=== PATIENT | male | born 1935 | race Caucasian/White ===

== ENCOUNTER → 2016-11-18 | Outpatient (REF) | payer MEDICARE, OTHER ==
[~2016-11-18] MED LIST: ACET65TA; ALBU17IN INH; ALEVE; ANOR1AER INH; BREO1INH3 INH; CALCTAB68 PO; CEFA1INJ5 IV; CHLO50TA PO; DICL500C PO; DILT120C PO; DILT30TA PO; DIOV160T5; ELIQ5TAB PO; FINA5TAB2 PO; FISHCAP; FLOM5CAP PO; IPRASOL4 INH; LEFL1TAB4 PO; LEVO2TA; LISI-542 PO; MORP15TASA PO; OXYC1TAB23 PO; PRESCAP6 PO; TIZA4CAP3 PO
[2016-11-18 14:03] LABS: MEAN CORPUSCULAR HGB CONC 31.7 g/dl (32.0-36.5); MEAN CORPUSCULAR VOLUME 91.4 fl (80.0-96.0); RED CELL DISTRIBUTION WIDTH 15.8 % (11.5-14.5); WHITE BLOOD COUNT 10.2 K/mm3 (4.0-10.0)
[2016-11-18 14:40] LABS: ANION GAP 10 MEQ/L (8-16); BLOOD UREA NITROGEN 9 MG/DL (7-18); CALCIUM LEVEL 8.6 MG/DL (8.8-10.2); CARBON DIOXIDE LEVEL 27 MEQ/L (21-32); CHLORIDE LEVEL 102 MEQ/L (98-107); GLOMERULAR FILTRATION RATE > 60.0 (>35); GLUCOSE, FASTING 84 MG/DL (83-110); POTASSIUM SERUM 4.4 MEQ/L (3.5-5.1); SODIUM LEVEL 139 MEQ/L (136-145)
== END ==
LOC: M SHH 13:04
PROVIDERS: ATTEND Internal Medicine Infectious Disease
DX: Z79.02 Long term (current) use of antithrombotics/antiplatelets (principal)

== ENCOUNTER 2016-11-25 12:55 | Emergency (ER) | payer MEDICARE, OTHER ==
[2016-11-25 14:00] LABS: BASO % 0.5 % (0.0-1.0); EOS # 0.1 K/mm3 (0.0-0.50); EOS % 1.6 % (0.0-3.0); LARGE UNSTAINED CELL # 0.1 K/mm3 (0.0-0.4); LARGE UNSTAINED CELL % 1.4 % (0.0-4.0); LYMPH # 0.9 K/mm3 (1.5-4.5); MEAN CORPUSCULAR HEMOGLOBIN 29.6 pg (27.0-33.0); MEAN CORPUSCULAR VOLUME 92.5 fl (80.0-96.0); MONO # 0.8 K/mm3 (0.0-0.8); MONO % 8.8 % (0.0-5.0); NEUTROPHILS # 7.1 K/mm3 (1.8-7.7); NEUTROPHILS % 77.7 % (36.0-66.0); PLATELET COUNT, AUTOMATED 343 k/mm3 (150-450); RED CELL DISTRIBUTION WIDTH 15.2 % (11.5-14.5); WHITE BLOOD COUNT 9.2 K/mm3 (4.0-10.0)
[2016-11-25 14:09] LABS: INR 1.86
[2016-11-25] MEDS ORDERED: PERCOCET 5MG/325MG TAB As Ordered ONE (14:20)
[2016-11-25 14:27] LABS: ALBUMIN 2.7 GM/DL (3.2-5.2); ALBUMIN/GLOBULIN RATIO 0.71 (1.00-1.93); ALKALINE PHOSPHATASE 116 U/L (45-117); ALT/SGPT < 6 U/L (12-78); AMYLASE 16 U/L (25-115); ANION GAP 10 MEQ/L (8-16); AST/SGOT 12 U/L (15-37); BILIRUBIN,DIRECT 0.2 MG/DL (0.0-0.2); BILIRUBIN,TOTAL 0.4 MG/DL (0.2-1.0); BLOOD UREA NITROGEN 14 MG/DL (7-18); CALCIUM LEVEL 9.2 MG/DL (8.8-10.2); CARBON DIOXIDE LEVEL 28 MEQ/L (21-32); CHLORIDE LEVEL 107 MEQ/L (98-107); CREATININE FOR GFR 0.73 MG/DL (0.70-1.30); GLOMERULAR FILTRATION RATE > 60.0 (>35); GLUCOSE, FASTING 100 MG/DL (83-110); POTASSIUM SERUM 4.1 MEQ/L (3.5-5.1); SODIUM LEVEL 145 MEQ/L (136-145); TOTAL PROTEIN 6.5 GM/DL (6.4-8.2)
[2016-11-25] MEDS ORDERED: ISOVUE-370 76% 100ML VIAL (Q9967) As Ordered ONE (14:37)
[2016-11-25 14:58] LABS: ERYTHROCYTE SEDIMENTATION RATE 76 mm/hr (0-20)
--- NOTE | 2016-11-25 17:19 | REP ---
CT study of the abdomen pelvis with IV but without oral contrast: History: Psoas abscess, acute bacterial diskitis in the lumbar spine at L1-2 and L3-4. The patient is status-post catheter drainage right iliopsoas abscess. Increased pain. Comparison CT study is of the lumbar spine from 11/03/2016. Comparison is also made with 10/14/[address] contrast dose: 100 mL of Isovue [address] findings: There is some progressive bone destruction and superior collapse of the L2 vertebral body. There is endplate destruction at the at the inferior endplate of L1. These changes are somewhat more pronounced as well although L1 has not lost in the vertebral body heights. Centrally, the L2 vertebral body has lost approximately 50%. There is destruction of the posterior cortex of the L2 vertebral body as well and there is evidence of epidural disease with retropulsion or epidural abscess formation and central canal spinal stenosis at L1-2. This appears to be more pronounced than on the 11/03/2016 study. There is no visible paraspinal fluid or psoas fluid collection. The right iliopsoas percutaneous drainage catheter remains in place without a discernible cavity in the psoas. The changes at L3-4 are essentially status quo. Left colonic diverticulosis without evidence of diverticulitis is again seen. Small bilateral pleural effusions are seen along with calcific pleural plaquing. No intra-abdominal abscess seen. Impression: Progressive bone destruction and loss of vertebral body height at L2 with retropulsion. There is ventral and right ventral epidural inflammatory disease at L1-2, question epidural abscess, which is more pronounced than on the 11/03/2016 CT study. The right pigtail drainage catheter remains in place. No observable soft-tissue abscess on either side. Signed by Manav Vargas MD 11/26/2016 08:00 A
--- NOTE | 2016-11-25 19:19 | EDDOCDS ---
Nurse's Notes [facility] Name: Yamil Harvey Age: 81 yrs Sex: Male : 1935 Arrival Date: 11/25/2016 Time: 12:55 Bed 17 Private MD: Jagdish Bobby J Diagnosis: Osteomyelitis-L2 with epidural abscess Presentation: 11/25 12:58 Presenting complaint: EMS states: sent over d/t blood in the tubes from his psoas po abscess. Acute neurological deficits are not present. Mechanism of Injury: No Mechanism of Injury. Suicide/Homicide risk assessment- the patient denies having any suicidal and/or homicidal ideations and does not present with any other emotional, behavioral or mental health complaints. 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 Transition of care: patient was received from a primary care office; Dr. Bobby. 12:58 Acuity: JARED Level 3 po 12:58 Method Of Arrival: Ambulance po 13:07 Adult Sepsis Screening: The patient does not have new or worsening altered mentation. po Patient's respiratory rate is less than 22. Systolic blood pressure is greater than 100. Patient has a qSOFA score of 0- Negative Sepsis Screen. 13:13 Presenting complaint: Patient states: Had Toradol 60mg IM at 's office without po relief of pain. Triage Assessment: 13:07 General: Appears uncomfortable, Behavior is appropriate for age, cooperative. Pain: po Location: back, right leg and left leg Pain currently is 10 out of 10 on a pain scale. Quality of pain is described as sharp, Is continuous. Neurological: Level of Consciousness is awake, alert, Oriented to person, place, time. Musculoskeletal: Reports weakness in right leg and left leg. Historical: - Allergies: No known drug Allergies; - Home Meds: 1. ProAir HFA 90 mcg/actuation inhalation HFAA 1 puff every 4 hours as needed 2. Eliquis 5 mg oral tab 1 tab 2 times per day 3. bisacodyl 10 mg Rectal supp 1 suppository as needed for Constipation 4. Calcium + Vitamin D 500/1000/40 Oral 1 tab daily 5. diltiazem HCl 120 mg Oral cpER 1 cap once daily 6. Flomax 0.4 mg Oral cp24 1 cap once daily 7. lisinopril 5 mg oral tab 1 tab once daily 8. Anoro Ellipta 62.5-25 mcg/actuation inhalation dsdv 1 puff once daily 9. Areds 2-Eye vitamin 2 tab daily 10. Proscar 5 mg Oral tab 1 tab once daily 11. morphine 15 mg Oral TbER 1 tab every 12 hours 12. Percocet 5-325 mg Oral tab 1 tab every 6 hours as needed 13. leflunomide 20 mg oral tab 1 tab once daily 14. finasteride 5 mg oral tab 1 tab once daily 15. Breo Ellipta 100-25 mcg/dose inhalation dsdv 1 puff once daily 16. cefazolin 2 grams injection solr every 8 hours - PMHx: COPD; Cancer, Lung - Right; Hypertension; Macular Degeneration; BPH; Lumbar Discitis; Psoas Abscess; - PSHx: Wedge resection RLL; - Social history: Smoking status: Patient states former smoker of tobacco. No barriers to communication noted, The patient speaks fluent Yakut. - Family history: Not pertinent. - : The pt / caregiver states he / she is on anticoagulants: [employer] Home medication list is obtained from the patient, family members, [employer] import data. - Exposure Risk Screening:: None identified. Screenin:10 Screening information is obtained from the patient. Fall risk: At risk due to gait po disturbance, The following interventions are performed due to a positive Fall Risk Screen: Fall Risk is added to Special Handling on the patient Summary Screen. A Fall Risk Bracelet was applied to the patient. Side Rails are placed in the up position. A Call [place] is given with instruction to call for help when getting out of bed. Fall Alert bracelet is placed on the patient. Assistance ADL's: Requires assistance with meal preparation, this assistance is provided by family members, bathing, assistance is provided by family members, dressing, assistance is provided by family members, housework, assistance is provided by family members, medication administration, assistance is provided by family members. Abuse/DV Screen: The patient / caregiver reports he/she is: not in a situation that causes fear, pain or injury. Nutritional screening: Had unintentional weight loss of 10 pounds or more. Advance Directives: Currently, there is no health care proxy. There is no active DNR order. There is no living will. Further advance directive information is declined. home support is adequate. 13:13 Fall Risk. po Assessment: 14:00 General: Appears in no apparent distress, comfortable, Behavior is appropriate for age, ck1 cooperative. Pain: Location: left hip and right hip and back. Neurological: Level of Consciousness is awake, alert, obeys commands, Oriented to person, place, time. Cardiovascular: Rhythm is irregular. Respiratory: Respiratory effort is unlabored, Respiratory pattern is regular, symmetrical. Derm: Skin is pink, warm & dry. Musculoskeletal: Circulation, motion, and sensation intact Range of motion intact in all extremities. 15:09 Reassessment: Patient appears in no apparent distress at this time. ck1 15:50 General: Appears in no apparent distress, comfortable, Behavior is appropriate for age, ck1 cooperative. Neurological: Level of Consciousness is awake, alert, obeys commands, Oriented to person, place, time. Cardiovascular: Rhythm is irregular. Respiratory: Respiratory effort is unlabored, Respiratory pattern is regular, symmetrical. Derm: Skin is pink, warm & dry. Musculoskeletal: Circulation, motion, and sensation intact Range of motion intact in all extremities. 16:16 Adult Sepsis Screening: The patient does not have new or worsening altered mentation. ck1 Patient's respiratory rate is less than 22. Systolic blood pressure is greater than 100. Patient has a qSOFA score of 0- Negative Sepsis Screen. 16:39 General: Appears in no apparent distress, comfortable, Behavior is appropriate for age, ck1 cooperative. Neurological: Level of Consciousness is awake, alert, obeys commands, Oriented to person, place, time. Cardiovascular: Rhythm is irregular. Respiratory: Respiratory effort is unlabored, Respiratory pattern is regular, symmetrical. GI: No deficits noted. Derm: Skin is pink, warm & dry. Musculoskeletal: Circulation, motion, and sensation intact Range of motion intact in all extremities. 17:40 Reassessment: Patient appears in no apparent distress at this time. ck1 18:45 General: Appears in no apparent distress, comfortable, Behavior is appropriate for age, ck1 cooperative. Neurological: Level of Consciousness is awake, alert, obeys commands, Oriented to person, place, time. Cardiovascular: Rhythm is irregular Chest pain is denied. Respiratory: Respiratory effort is unlabored, Respiratory pattern is regular, symmetrical. GI: No deficits noted. Derm: Skin is pink, warm & dry. Musculoskeletal: Circulation, motion, and sensation intact Range of motion intact in all extremities. 19:04 General: Verbal report given by Kyra Toribio RN. Assumed care of patient at this time.. kas2 Vital Signs: 13:11 BP 137 / 68; Pulse 76; Resp 20; Temp 98.0(O); Pulse Ox 96% on R/A; Weight 84.82 kg (R); jrd Height 5 ft. 11 in. (180.34 cm); Pain 9/10; 15:07 BP 119 / 81 (auto/); ck1 15:08 Pulse 84 MON; Pulse Ox 95% ; ck1 15:22 BP 129 / 75 (auto/); ck1 15:23 Pulse 82 MON; Pulse Ox 95% ; ck1 15:37 BP 135 / 80 (auto/); ck1 15:38 Pulse 82 MON; Pulse Ox 92% ; ck1 15:52 BP 127 / 93 (auto/); ck1 15:52 Pulse 82 MON; Pulse Ox 93% ; ck1 16:05 Pulse 84 MON; Pulse Ox 95% ; ck1 16:07 BP 143 / 68 (auto/); ck1 16:22 BP 122 / 67 (auto/); ck1 16:23 Pulse 82 MON; Pulse Ox 96% ; ck1 16:37 BP 162 / 79 (auto/); ck1 16:38 Pulse 82 MON; Pulse Ox 94% ; ck1 16:52 BP 155 / 90 (auto/); ck1 16:53 Pulse 80 MON; Pulse Ox 94% ; ck1 17:07 BP 159 / 84 (auto/); ck1 17:08 Pulse 84 MON; Pulse Ox 94% ; ck1 17:37 BP 135 / 89 (auto/); ck1 17:38 Pulse 82 MON; Pulse Ox 94% ; ck1 17:52 BP 150 / 66 (auto/); ck1 17:53 Pulse 80 MON; Pulse Ox 93% ; ck1 18:07 BP 160 / 70 (auto/); ck1 18:08 Pulse 80 MON; Pulse Ox 95% ; ck1 18:11 Pulse 76 MON; Pulse Ox 94% ; ck1 18:22 BP 162 / 87 (auto/); ck1 18:23 Pulse 82 MON; ck1 18:37 BP 144 / 73 (auto/); ck1 18:38 Pulse 76 MON; ck1 18:52 BP 142 / 80 (auto/); kas2 18:52 Pulse 86 MON; kas2 18:52 BP 138 / 72; Pulse 82; Resp 18; Pulse Ox 95% ; Pain 0/10; kas2 19:07 BP 128 / 73 (auto/); kas2 19:07 Pulse 82 MON; kas2 19:13 Temp 96.9(O); ls3 19:15 Temp 98.0(O); kas2 13:11 Body Mass Index 26.08 (84.82 kg, 180.34 cm) jrd Vitals: 13:07 Log In Time N/A - ambulance arrival. po ED Course: 12:56 Patient visited by Winifred Coronel, Health Science Specialist. lbd 12:56 Jagdish Bobby is Private Physician. lbd 12:56 Patient moved to Waiting lbd 12:57 Kyra Ramos,RN is Primary Nurse. lbd 12:57 Patient moved to 17 lbd 13:00 Nicolette Keller MD is Attending Physician. sd1 13:02 Triage Initiated po 13:07 Arm band placed on right wrist. Patient placed in exam room. Family accompanied patient.po 13:10 The patient / caregiver is instructed regarding the plan of care and ED course. Placed po in gown. Bed in low position. Call light in reach. Side rails up X2. case monitor on. Pulse ox on. NIBP on. 13:12 Patient visited by Jerome Arzola PCA. jrd 13:14 Patient visited by Yan Jamison,SHAY. po 13:20 Patient visited by Nicolette Keller MD. sd1 13:29 Accessed PICC line in patient's right upper arm. Clean & dry. po 13:47 Patient visited by Kyra Ramos,SHAY. ck1 13:47 BLOOD CULTURES Sent. ck1 13:47 Sed Rate Sent. ck1 13:47 CRP Sent. ck1 13:47 Lactic Acid (Rao tube on ice) Sent. ck1 13:47 Amylase Sent. ck1 13:47 Basic Metabolic Profile Sent. ck1 13:47 CBC with Diff Sent. ck1 13:47 Lipase Sent. ck1 13:47 Prothrombin Time Profile\E\INR Sent. ck1 13:47 Liver Profile Sent. ck1 14:16 Patient visited by Kyra Ramos,SHAY. ck1 14:49 Patient visited by Kyra Ramos RN. ck1 15:06 [facility] Payment Agreement was scanned into [employer] and attached to record. pm4 15:08 Patient visited by Kyra Ramos RN. ck1 15:10 No procedures done that require assistance. ck1 15:41 Patient visited by Kyra Ramos,SHAY. ck1 16:16 Patient visited by Kyra Ramos RN. ck1 16:40 Patient visited by Kyra Ramos RN. ck1 18:18 CT ABD & PELVIS: IV Contrast Only Returned. EDMS 18:50 Primary Nurse role handed off by Kyra Ramos RN ck1 19:01 Farida Stanford RN is Primary Nurse. kas2 19:04 Patient visited by Farida Stanford RN. kas2 19:16 Patient visited by Farida Stanford RN. kas2 Administered Medications: 14:29 Drug: oxyCODONE-acetaminophen 1 tabs [oxycodone-acetaminophen 5 mg-325 mg tablet (1 kc3 tabs)] Route: PO; 16:39 Drug: NS 0.9% 1000 ml [sodium chloride 0.9 % intravenous solution] Route: IV; Rate: 100 ck1 mL/hr; Site: right upper arm; Order Results: Lab Order: Amylase; SPEC'M 11/25/16 13:45 Test: AMYLASE; Value: 16; Range: 25-115; Abnormal: Below low normal; Units: U/L; Status: F Lab Order: Basic Metabolic Profile; SPEC'M 11/25/16 13:45 Test: GLUCOSE, FASTING; Value: 100; Range: 83-110; Units: MG/DL; Status: F Test: BLOOD UREA NITROGEN; Value: 14; Range: 7-18; Units: MG/DL; Status: F Test: CREATININE FOR GFR; Value: 0.73; Range: 0.70-1.30; Units: MG/DL; Status: F Test: GLOMERULAR FILTRATION RATE; Value: > 60.0; Range: >35; Status: F Test: SODIUM LEVEL; Value: 145; Range: 136-145; Units: MEQ/L; Status: F Test: POTASSIUM SERUM; Value: 4.1; Range: 3.5-5.1; Units: MEQ/L; Status: F Test: CHLORIDE LEVEL; Value: 107; Range: 98-107; Units: MEQ/L; Status: F Test: CARBON DIOXIDE LEVEL; Value: 28; Range: 21-32; Units: MEQ/L; Status: F Test: ANION GAP; Value: 10; Range: 8-16; Units: MEQ/L; Status: F Test: CALCIUM LEVEL; Value: 9.2; Range: 8.8-10.2; Units: MG/DL; Status: F Test Note: ; Units are mL/min/1.73 m2 Chronic Kidney Disease Staging per NKF: Stage I & II GFR >=60 Normal to Mildly Decreased Stage III GFR 30-59 Moderately Decreased Stage IV GFR 15-29 Severely Decreased Stage V GFR <15 Very Little GFR Left ESRD GFR <15 on RUBBER TILE FLOOR LAYER Lab Order: CBC with Diff; SPEC'M 11/25/16 13:45 Test: WHITE BLOOD COUNT; Value: 9.2; Range: 4.0-10.0; Units: K/mm3; Status: F Test: RED BLOOD COUNT; Value: 4.09; Range: 4.30-6.10; Abnormal: Below low normal; Units: M/mm3; Status: F Test: HEMOGLOBIN; Value: 12.1; Range: 14.0-18.0; Abnormal: Below low normal; Units: g/dl; Status: F Test: HEMATOCRIT; Value: 37.8; Range: 42.0-52.0; Abnormal: Below low normal; Units: %; Status: F Test: MEAN CORPUSCULAR VOLUME; Value: 92.5; Range: 80.0-96.0; Units: fl; Status: F Test: MEAN CORPUSCULAR HEMOGLOBIN; Value: 29.6; Range: 27.0-33.0; Units: pg; Status: F Test: MEAN CORPUSCULAR HGB CONC; Value: 32.0; Range: 32.0-36.5; Units: g/dl; Status: F Test: RED CELL DISTRIBUTION WIDTH; Value: 15.2; Range: 11.5-14.5; Abnormal: Above high normal; Units: %; Status: F Test: PLATELET COUNT, AUTOMATED; Value: 343; Range: 150-450; Units: k/mm3; Status: F Test: NEUTROPHILS %; Value: 77.7; Range: 36.0-66.0; Abnormal: Above high normal; Units: %; Status: F Test: LYMPH %; Value: 10.0; Range: 24.0-44.0; Abnormal: Below low normal; Units: %; Status: F Test: MONO %; Value: 8.8; Range: 0.0-5.0; Abnormal: Above high normal; Units: %; Status: F Test: EOS %; Value: 1.6; Range: 0.0-3.0; Units: %; Status: F Test: BASO %; Value: 0.5; Range: 0.0-1.0; Units: %; Status: F Test: LARGE UNSTAINED CELL %; Value: 1.4; Range: 0.0-4.0; Units: %; Status: F Test: NEUTROPHILS #; Value: 7.1; Range: 1.8-7.7; Units: K/mm3; Status: F Test: LYMPH #; Value: 0.9; Range: 1.5-4.5; Abnormal: Below low normal; Units: K/mm3; Status: F Test: MONO #; Value: 0.8; Range: 0.0-0.8; Units: K/mm3; Status: F Test: EOS #; Value: 0.1; Range: 0.0-0.50; Units: K/mm3; Status: F Test: BASO #; Value: 0.0; Range: 0.0-0.2; Units: K/mm3; Status: F Test: LARGE UNSTAINED CELL #; Value: 0.1; Range: 0.0-0.4; Units: K/mm3; Status: F Lab Order: Lipase; SPEC'M 11/25/16 13:45 Test: LIPASE; Value: 109; Range: 73-393; Units: U/L; Status: F Lab Order: Liver Profile; SPEC'M 11/25/16 13:45 Test: AST/SGOT; Value: 12; Range: 15-37; Abnormal: Below low normal; Units: U/L; Status: F Test: ALT/SGPT; Value: < 6; Range: 12-78; Abnormal: Below low normal; Units: U/L; Status: F Test: ALKALINE PHOSPHATASE; Value: 116; Range: 45-117; Units: U/L; Status: F Test: BILIRUBIN,TOTAL; Value: 0.4; Range: 0.2-1.0; Units: MG/DL; Status: F Test: BILIRUBIN,DIRECT; Value: 0.2; Range: 0.0-0.2; Units: MG/DL; Status: F Test: TOTAL PROTEIN; Value: 6.5; Range: 6.4-8.2; Units: GM/DL; Status: F Test: ALBUMIN; Value: 2.7; Range: 3.2-5.2; Abnormal: Below low normal; Units: GM/DL; Status: F Test: ALBUMIN/GLOBULIN RATIO; Value: 0.71; Range: 1.00-1.93; Abnormal: Below low normal; Status: F Lab Order: Prothrombin Time Profile\E\INR; 11/25/16 13:45 Test: PROTHROMBIN TIME; Value: 21.5; Range: 12.3-14.5; Abnormal: Above high normal; Units: SECONDS; Status: F Test: INR; Value: 1.86; Status: F Test Note: ; THERAPUTIC HUMAN INR VALUES INDICATIONS NORMAL RANGES PROPHYLAXIS/TREATMENT OF: VENOUS THROMBOSIS 2.0-3.0 PULMONARY EMBOLISM 2.0-3.0 PREVENTION OF SYSTEMIC EMBOLISM FROM: TISSUE HEART VALVES 2.0-3.0 ACUTE MYOCARDIAL INFARCTION 2.0-3.0 VALVULAR HEART DISEASE 2.0-3.0 ATRIAL FIBRILLATION 2.0-3.0 MECHANICAL VALVES(HIGH RISK) 2.5-3.5 RECURRENT MYOCARDIAL INFARCTION 2.5-3.5 Lab Order: Lactic Acid (Rao tube on ice); 11/25/16 13:44 Test: LACTIC ACID LEVEL, LACTATE; Value: 1.5; Range: 0.4-2.0; Units: MMOL/L; Status: F Lab Order: CRP; 11/25/16 13:45 Test: C REACTIVE PROTEIN QUANTITATIV; Value: 1.34; Range: 0.00-0.30; Abnormal: Above high normal; Units: MG/DL; Status: F Lab Order: Sed Rate; 11/25/16 13:45 Test: ERYTHROCYTE SEDIMENTATION RATE; Value: 76; Range: 0-20; Abnormal: Above high normal; Units: mm/hr; Status: F Radiology Order: CT ABD & PELVIS: IV Contrast Only Test: CT ABD & PELVIS: IV Contrast Only REASON FOR EXAMINATION: psoas abscess; CT study of the abdomen pelvis with IV but without oral contrast:; ; History: Psoas abscess, acute bacterial diskitis in the lumbar spine at L1-2 and; L3-4. The patient is status-post catheter drainage right iliopsoas abscess.; Increased pain.; ; Comparison CT study is of the lumbar spine from 11/03/2016. Comparison is also; made with 10/14/[address] ; CT contrast dose: 100 mL of Isovue 370 is administered intravenously.; ; CT findings: There is some progressive bone destruction and superior collapse of; the L2 vertebral body. There is endplate destruction at the at the inferior; endplate of L1. These changes are somewhat more pronounced as well although L1; has not lost in the vertebral body heights. Centrally, the L2 vertebral body has; lost approximately 50%. There is destruction of the posterior cortex of the L2; vertebral body as well and there is evidence of epidural disease with; retropulsion or epidural abscess formation and central canal spinal stenosis at; L1-2. This appears to be more pronounced than on the 11/03/2016 study. There is; no visible paraspinal fluid or psoas fluid collection. The right iliopsoas; percutaneous drainage catheter remains in place without a discernible cavity in; the psoas. The changes at L3-4 are essentially status quo.; ; Left colonic diverticulosis without evidence of diverticulitis is again seen.; Small bilateral pleural effusions are seen along with calcific pleural plaquing.; No intra-abdominal abscess seen.; ; Impression:; ; Progressive bone destruction and loss of vertebral body height at L2 with; retropulsion. There is ventral and right ventral epidural inflammatory disease; at L1-2, question epidural abscess, which is more pronounced than on the; 11/03/2016 CT study. The right pigtail drainage catheter remains in place. No; observable soft-tissue abscess on either side.; ; ; ; ; Unreviewed; Outcome: 15:08 CT Study completed. ck1 16:29 ER care complete, transfer ordered by Provider. sd1 17:31 Discharge Assessment: Patient awake, alert and oriented x 3. No cognitive and/or ck1 functional deficits noted. Patient verbalized understanding of disposition instructions. patient administered narcotics - yes. Patient was admitted to the hospital or transferred to another facility. The following High Risk Discharge criteria are identified: None. Transferred to [facility]. by EMS ground [facility] ambulance Transfer form completed. x-rays sent w/ patient. Condition: stable. Property :Personal belongings accompany Pt. 18:05 Admission hand-off: Report called to Ngozi Lewis RN. ck1 19:10 Transferred by EMS ground report to accompanying personnel Carole Adhikari city routeman and sergio Reynoso city routeman. 19:17 Patient left the ED. sls1 Signatures: Dispatcher [employer] EDMS Nicolette Keller MD MD sd1 Winifred Coronel, Health Science Specialist Unit lbd Yan JamisonRN Kyra ZuletaRN RN ck1 Mary Ulrich, RN RN sls1 Jerome Arzola, WOOD CALKER WOOD CALKER d Shante Segal, WOOD CALKER WOOD CALKER ls3 Niyah Garcia RN RN kc3 Farida Stanford RN RN kas2 Dejon Curiel, Reg Reg pm4 MTDD
--- NOTE | 2016-11-25 19:19 | EDDOCDS ---
Physician Documentation [facility] Name: Yamil Harvey Age: 81 yrs Sex: Male : 1935 Arrival Date: 11/25/2016 Time: 12:55 Bed 17 Private MD: Jagdish Bobby J Disposition: 11/25/16 16:29 Transfer ordered to [facility]. Diagnosis is Osteomyelitis - L2 with epidural abscess. - Reason for transfer: Higher level of care. - Accepting physician is Dr. Ibrahim. - Condition is Stable. - Problem is new. - Symptoms are unchanged. Historical: - Allergies: No known drug Allergies; - Home Meds: 1. ProAir HFA 90 mcg/actuation inhalation HFAA 1 puff every 4 hours as needed 2. Eliquis 5 mg oral tab 1 tab 2 times per day 3. bisacodyl 10 mg Rectal supp 1 suppository as needed for Constipation 4. Calcium + Vitamin D 500/1000/40 Oral 1 tab daily 5. diltiazem HCl 120 mg Oral cpER 1 cap once daily 6. Flomax 0.4 mg Oral cp24 1 cap once daily 7. lisinopril 5 mg oral tab 1 tab once daily 8. Anoro Ellipta 62.5-25 mcg/actuation inhalation dsdv 1 puff once daily 9. Areds 2-Eye vitamin 2 tab daily 10. Proscar 5 mg Oral tab 1 tab once daily 11. morphine 15 mg Oral TbER 1 tab every 12 hours 12. Percocet 5-325 mg Oral tab 1 tab every 6 hours as needed 13. leflunomide 20 mg oral tab 1 tab once daily 14. finasteride 5 mg oral tab 1 tab once daily 15. Breo Ellipta 100-25 mcg/dose inhalation dsdv 1 puff once daily 16. cefazolin 2 grams injection solr every 8 hours - PMHx: COPD; Cancer, Lung - Right; Hypertension; Macular Degeneration; BPH; Lumbar Discitis; Psoas Abscess; - PSHx: Wedge resection RLL; - Social history: Smoking status: Patient states former smoker of tobacco. No barriers to communication noted, The patient speaks fluent Iranian. - Family history: Not pertinent. - : The pt / caregiver states he / she is on anticoagulants: Eliquis Home medication list is obtained from the patient, family members, [employer] import data. - Exposure Risk Screening:: None identified. Vital Signs: 11/25 13:11 BP 137 / 68; Pulse 76; Resp 20; Temp 98.0(O); Pulse Ox 96% on R/A; Weight 84.82 kg / jrd 187 lbs (R); Height 5 ft. 11 in. (180.34 cm); Pain 9/10; 15:07 BP 119 / 81 (auto/); ck1 15:08 Pulse 84 MON; Pulse Ox 95% ; ck1 15:22 BP 129 / 75 (auto/); ck1 15:23 Pulse 82 MON; Pulse Ox 95% ; ck1 15:37 BP 135 / 80 (auto/); ck1 15:38 Pulse 82 MON; Pulse Ox 92% ; ck1 15:52 BP 127 / 93 (auto/); ck1 15:52 Pulse 82 MON; Pulse Ox 93% ; ck1 16:05 Pulse 84 MON; Pulse Ox 95% ; ck1 16:07 BP 143 / 68 (auto/); ck1 16:22 BP 122 / 67 (auto/); ck1 16:23 Pulse 82 MON; Pulse Ox 96% ; ck1 16:37 BP 162 / 79 (auto/); ck1 16:38 Pulse 82 MON; Pulse Ox 94% ; ck1 16:52 BP 155 / 90 (auto/); ck1 16:53 Pulse 80 MON; Pulse Ox 94% ; ck1 17:07 BP 159 / 84 (auto/); ck1 17:08 Pulse 84 MON; Pulse Ox 94% ; ck1 17:37 BP 135 / 89 (auto/); ck1 17:38 Pulse 82 MON; Pulse Ox 94% ; ck1 17:52 BP 150 / 66 (auto/); ck1 17:53 Pulse 80 MON; Pulse Ox 93% ; ck1 18:07 BP 160 / 70 (auto/); ck1 18:08 Pulse 80 MON; Pulse Ox 95% ; ck1 18:11 Pulse 76 MON; Pulse Ox 94% ; ck1 18:22 BP 162 / 87 (auto/); ck1 18:23 Pulse 82 MON; ck1 18:37 BP 144 / 73 (auto/); ck1 18:38 Pulse 76 MON; ck1 18:52 BP 142 / 80 (auto/); kas2 18:52 Pulse 86 MON; kas2 18:52 BP 138 / 72; Pulse 82; Resp 18; Pulse Ox 95% ; Pain 0/10; kas2 19:07 BP 128 / 73 (auto/); kas2 19:07 Pulse 82 MON; kas2 19:13 Temp 96.9(O); ls3 19:15 Temp 98.0(O); kas2 13:11 Body Mass Index 26.08 (84.82 kg, 180.34 cm) jrd MDM: 13:01 Undress patient appropriately for examination ordered. sd1 13:01 -Blood Culture (Adults Only), peripheral from different site, or from device/port/PICC sd1 etc. if present ordered. 13:01 Amylase Ordered. EDMS 13:01 Basic Metabolic Profile Ordered. EDMS 13:01 CBC with Diff Ordered. EDMS 13:01 Lipase Ordered. EDMS 13:01 Liver Profile Ordered. EDMS 13:01 Prothrombin Time Profile\E\INR Ordered. EDMS 13:01 Lactic Acid (Rao tube on ice) Ordered. EDMS 13:01 -Blood Culture Ordered. EDMS 13:01 CRP Ordered. EDMS 13:02 Sed Rate Ordered. EDMS 13:02 NOTHING BY MOUTH+DIET ordered. EDMS 13:04 -Blood Culture (Adults Only), peripheral from different site, or from device/port/PICC jlf etc. if present complete. 13:06 BLOOD CULTURES Ordered. EDMS 13:47 CT ABD & PELVIS: IV Contrast Only Ordered. EDMS 14:11 oxyCODONE-acetaminophen 5 mg-325 mg 1 tabs PO once ordered. sd1 14:45 Amylase Reviewed. sd1 14:45 CBC with Diff Reviewed. sd1 14:45 Liver Profile Reviewed. sd1 14:45 Prothrombin Time Profile\E\INR Reviewed. sd1 14:45 CRP Reviewed. sd1 14:45 Basic Metabolic Profile Reviewed. sd1 14:45 Lipase Reviewed. sd1 14:45 Lactic Acid (Rao tube on ice) Reviewed. sd1 14:47 Financial registration complete. pm4 15:06 [facility] Payment Agreement was scanned into [employer] and attached to record. pm4 15:36 CBC with Diff Reviewed. sd1 15:36 Sed Rate Reviewed. sd1 16:28 NS 0.9% 1000 ml IV at 100 mL/hr continuous ordered. sd1 Administered Medications: 14:29 Drug: oxyCODONE-acetaminophen 1 tabs [oxycodone-acetaminophen 5 mg-325 mg tablet (1 kc3 tabs)] Route: PO; 16:39 Drug: NS 0.9% 1000 ml [sodium chloride 0.9 % intravenous solution] Route: IV; Rate: 100 ck1 mL/hr; Site: right upper arm; Signatures: Dispatcher [employer] EDDE Nicolette Keller MD MD sd1 Yan JamisonRN RN po Kyra RamosRN RN ck1 Mary Ulrich RN RN sls1 Chuck Pratt, WELDING MACHINE OPERATOR HELPER ARC WELDING MACHINE OPERATOR HELPER ARC jlf Dejon Curiel, Reg Reg pm4 Niyah Garcia RN kc3 The chart was reviewed and I authenticate all verbal orders and agree with the evaluation and treatment provided.Corrections: (The following items were deleted from the chart) 14:12 13:01 IV Saline Lock ordered. sd1 sd1 Attachments: 15:06 [facility] [place] Payment Agreement pm4 MTDD
--- NOTE | 2016-11-27 20:19 | EDDOCDS ---
Nurse's Notes [facility] Name: Yamil Harvey Age: 81 yrs Sex: Male : 1935 Arrival Date: 11/25/2016 Time: 12:55 Bed 17 Private MD: Jagdish Bobby J Diagnosis: Osteomyelitis-L2 with epidural abscess Presentation: 11/25 12:58 Presenting complaint: EMS states: sent over d/t blood in the tubes from his psoas po abscess. Acute neurological deficits are not present. Mechanism of Injury: No Mechanism of Injury. Suicide/Homicide risk assessment- the patient denies having any suicidal and/or homicidal ideations and does not present with any other emotional, behavioral or mental health complaints. Status: Patient is not a it service technician or dependent. Transition of care: patient was received from a primary care office; Dr. Bobby. 12:58 Acuity: JARED Level 3 po 12:58 Method Of Arrival: Ambulance po 13:07 Adult Sepsis Screening: The patient does not have new or worsening altered mentation. po Patient's respiratory rate is less than 22. Systolic blood pressure is greater than 100. Patient has a qSOFA score of 0- Negative Sepsis Screen. 13:13 Presenting complaint: Patient states: Had Toradol 60mg IM at 's office without po relief of pain. Triage Assessment: 13:07 General: Appears uncomfortable, Behavior is appropriate for age, cooperative. Pain: po Location: back, right leg and left leg Pain currently is 10 out of 10 on a pain scale. Quality of pain is described as sharp, Is continuous. Neurological: Level of Consciousness is awake, alert, Oriented to person, place, time. Musculoskeletal: Reports weakness in right leg and left leg. Historical: - Allergies: No known drug Allergies; - Home Meds: 1. ProAir HFA 90 mcg/actuation inhalation HFAA 1 puff every 4 hours as needed 2. Eliquis 5 mg oral tab 1 tab 2 times per day 3. bisacodyl 10 mg Rectal supp 1 suppository as needed for Constipation 4. Calcium + Vitamin D 500/1000/40 Oral 1 tab daily 5. diltiazem HCl 120 mg Oral cpER 1 cap once daily 6. Flomax 0.4 mg Oral cp24 1 cap once daily 7. lisinopril 5 mg oral tab 1 tab once daily 8. Anoro Ellipta 62.5-25 mcg/actuation inhalation dsdv 1 puff once daily 9. Areds 2-Eye vitamin 2 tab daily 10. Proscar 5 mg Oral tab 1 tab once daily 11. morphine 15 mg Oral TbER 1 tab every 12 hours 12. Percocet 5-325 mg Oral tab 1 tab every 6 hours as needed 13. leflunomide 20 mg oral tab 1 tab once daily 14. finasteride 5 mg oral tab 1 tab once daily 15. Breo Ellipta 100-25 mcg/dose inhalation dsdv 1 puff once daily 16. cefazolin 2 grams injection solr every 8 hours - PMHx: COPD; Cancer, Lung - Right; Hypertension; Macular Degeneration; BPH; Lumbar Discitis; Psoas Abscess; - PSHx: Wedge resection RLL; - Social history: Smoking status: Patient states former smoker of tobacco. No barriers to communication noted, The patient speaks fluent Croatian. - Family history: Not pertinent. - : The pt / caregiver states he / she is on anticoagulants: [employer] Home medication list is obtained from the patient, family members, [employer] import data. - Exposure Risk Screening:: None identified. Screenin:10 Screening information is obtained from the patient. Fall risk: At risk due to gait po disturbance, The following interventions are performed due to a positive Fall Risk Screen: Fall Risk is added to Special Handling on the patient Summary Screen. A Fall Risk Bracelet was applied to the patient. Side Rails are placed in the up position. A Call [place] is given with instruction to call for help when getting out of bed. Fall Alert bracelet is placed on the patient. Assistance ADL's: Requires assistance with meal preparation, this assistance is provided by family members, bathing, assistance is provided by family members, dressing, assistance is provided by family members, housework, assistance is provided by family members, medication administration, assistance is provided by family members. Abuse/DV Screen: The patient / caregiver reports he/she is: not in a situation that causes fear, pain or injury. Nutritional screening: Had unintentional weight loss of 10 pounds or more. Advance Directives: Currently, there is no health care proxy. There is no active DNR order. There is no living will. Further advance directive information is declined. home support is adequate. 13:13 Fall Risk. po Assessment: 14:00 General: Appears in no apparent distress, comfortable, Behavior is appropriate for age, ck1 cooperative. Pain: Location: left hip and right hip and back. Neurological: Level of Consciousness is awake, alert, obeys commands, Oriented to person, place, time. Cardiovascular: Rhythm is irregular. Respiratory: Respiratory effort is unlabored, Respiratory pattern is regular, symmetrical. Derm: Skin is pink, warm & dry. Musculoskeletal: Circulation, motion, and sensation intact Range of motion intact in all extremities. 15:09 Reassessment: Patient appears in no apparent distress at this time. ck1 15:50 General: Appears in no apparent distress, comfortable, Behavior is appropriate for age, ck1 cooperative. Neurological: Level of Consciousness is awake, alert, obeys commands, Oriented to person, place, time. Cardiovascular: Rhythm is irregular. Respiratory: Respiratory effort is unlabored, Respiratory pattern is regular, symmetrical. Derm: Skin is pink, warm & dry. Musculoskeletal: Circulation, motion, and sensation intact Range of motion intact in all extremities. 16:16 Adult Sepsis Screening: The patient does not have new or worsening altered mentation. ck1 Patient's respiratory rate is less than 22. Systolic blood pressure is greater than 100. Patient has a qSOFA score of 0- Negative Sepsis Screen. 16:39 General: Appears in no apparent distress, comfortable, Behavior is appropriate for age, ck1 cooperative. Neurological: Level of Consciousness is awake, alert, obeys commands, Oriented to person, place, time. Cardiovascular: Rhythm is irregular. Respiratory: Respiratory effort is unlabored, Respiratory pattern is regular, symmetrical. GI: No deficits noted. Derm: Skin is pink, warm & dry. Musculoskeletal: Circulation, motion, and sensation intact Range of motion intact in all extremities. 17:40 Reassessment: Patient appears in no apparent distress at this time. ck1 18:45 General: Appears in no apparent distress, comfortable, Behavior is appropriate for age, ck1 cooperative. Neurological: Level of Consciousness is awake, alert, obeys commands, Oriented to person, place, time. Cardiovascular: Rhythm is irregular Chest pain is denied. Respiratory: Respiratory effort is unlabored, Respiratory pattern is regular, symmetrical. GI: No deficits noted. Derm: Skin is pink, warm & dry. Musculoskeletal: Circulation, motion, and sensation intact Range of motion intact in all extremities. 19:04 General: Verbal report given by Kyra Toribio RN. Assumed care of patient at this time.. kas2 Vital Signs: 13:11 BP 137 / 68; Pulse 76; Resp 20; Temp 98.0(O); Pulse Ox 96% on R/A; Weight 84.82 kg (R); jrd Height 5 ft. 11 in. (180.34 cm); Pain 9/10; 15:07 BP 119 / 81 (auto/); ck1 15:08 Pulse 84 MON; Pulse Ox 95% ; ck1 15:22 BP 129 / 75 (auto/); ck1 15:23 Pulse 82 MON; Pulse Ox 95% ; ck1 15:37 BP 135 / 80 (auto/); ck1 15:38 Pulse 82 MON; Pulse Ox 92% ; ck1 15:52 BP 127 / 93 (auto/); ck1 15:52 Pulse 82 MON; Pulse Ox 93% ; ck1 16:05 Pulse 84 MON; Pulse Ox 95% ; ck1 16:07 BP 143 / 68 (auto/); ck1 16:22 BP 122 / 67 (auto/); ck1 16:23 Pulse 82 MON; Pulse Ox 96% ; ck1 16:37 BP 162 / 79 (auto/); ck1 16:38 Pulse 82 MON; Pulse Ox 94% ; ck1 16:52 BP 155 / 90 (auto/); ck1 16:53 Pulse 80 MON; Pulse Ox 94% ; ck1 17:07 BP 159 / 84 (auto/); ck1 17:08 Pulse 84 MON; Pulse Ox 94% ; ck1 17:37 BP 135 / 89 (auto/); ck1 17:38 Pulse 82 MON; Pulse Ox 94% ; ck1 17:52 BP 150 / 66 (auto/); ck1 17:53 Pulse 80 MON; Pulse Ox 93% ; ck1 18:07 BP 160 / 70 (auto/); ck1 18:08 Pulse 80 MON; Pulse Ox 95% ; ck1 18:11 Pulse 76 MON; Pulse Ox 94% ; ck1 18:22 BP 162 / 87 (auto/); ck1 18:23 Pulse 82 MON; ck1 18:37 BP 144 / 73 (auto/); ck1 18:38 Pulse 76 MON; ck1 18:52 BP 142 / 80 (auto/); kas2 18:52 Pulse 86 MON; kas2 18:52 BP 138 / 72; Pulse 82; Resp 18; Pulse Ox 95% ; Pain 0/10; kas2 19:07 BP 128 / 73 (auto/); kas2 19:07 Pulse 82 MON; kas2 19:13 Temp 96.9(O); ls3 19:15 Temp 98.0(O); kas2 13:11 Body Mass Index 26.08 (84.82 kg, 180.34 cm) jrd Vitals: 13:07 Log In Time N/A - ambulance arrival. po ED Course: 12:56 Patient visited by Winifred Coronel, Commercial Lending Assistant. lbd 12:56 Jagdish Bobby is Private Physician. lbd 12:56 Patient moved to Waiting lbd 12:57 Kyra Ramos,RN is Primary Nurse. lbd 12:57 Patient moved to 17 lbd 13:00 Nicolette Keller MD is Attending Physician. sd1 13:02 Triage Initiated po 13:07 Arm band placed on right wrist. Patient placed in exam room. Family accompanied patient.po 13:10 The patient / caregiver is instructed regarding the plan of care and ED course. Placed po in gown. Bed in low position. Call light in reach. Side rails up X2. front desk monitor on. Pulse ox on. NIBP on. 13:12 Patient visited by Jerome Arzola PCA. jrd 13:14 Patient visited by Yan Jamison,SHAY. po 13:20 Patient visited by Nicolette Keller MD. sd1 13:29 Accessed PICC line in patient's right upper arm. Clean & dry. po 13:47 Patient visited by Kyra Ramos,SHAY. ck1 13:47 BLOOD CULTURES Sent. ck1 13:47 Sed Rate Sent. ck1 13:47 CRP Sent. ck1 13:47 Lactic Acid (Rao tube on ice) Sent. ck1 13:47 Amylase Sent. ck1 13:47 Basic Metabolic Profile Sent. ck1 13:47 CBC with Diff Sent. ck1 13:47 Lipase Sent. ck1 13:47 Prothrombin Time Profile\E\INR Sent. ck1 13:47 Liver Profile Sent. ck1 14:16 Patient visited by Kyra Ramos,SHAY. ck1 14:49 Patient visited by Kyra Ramos RN. ck1 15:06 [facility] Payment Agreement was scanned into [employer] and attached to record. pm4 15:08 Patient visited by Kyra Ramos RN. ck1 15:10 No procedures done that require assistance. ck1 15:41 Patient visited by Kyra Ramos,SHAY. ck1 16:16 Patient visited by Kyra Ramos RN. ck1 16:40 Patient visited by Kyra Ramos RN. ck1 18:18 CT ABD & PELVIS: IV Contrast Only Returned. EDMS 18:50 Primary Nurse role handed off by Kyra Ramos RN ck1 19:01 Farida Stanford RN is Primary Nurse. kas2 19:04 Patient visited by Farida Stanford RN. kas2 19:16 Patient visited by Farida Stanford RN. kas2 11/26 12:04 T-Sheet-- Draft Copy was scanned into [employer] and attached to record. gb Administered Medications: 11/25 14:29 Drug: oxyCODONE-acetaminophen 1 tabs [oxycodone-acetaminophen 5 mg-325 mg tablet (1 kc3 tabs)] Route: PO; 16:39 Drug: NS 0.9% 1000 ml [sodium chloride 0.9 % intravenous solution] Route: IV; Rate: 100 ck1 mL/hr; Site: right upper arm; Order Results: Lab Order: Amylase; SPEC'M 11/25/16 13:45 Test: AMYLASE; Value: 16; Range: 25-115; Abnormal: Below low normal; Units: U/L; Status: F Lab Order: Basic Metabolic Profile; SPEC'M 11/25/16 13:45 Test: GLUCOSE, FASTING; Value: 100; Range: 83-110; Units: MG/DL; Status: F Test: BLOOD UREA NITROGEN; Value: 14; Range: 7-18; Units: MG/DL; Status: F Test: CREATININE FOR GFR; Value: 0.73; Range: 0.70-1.30; Units: MG/DL; Status: F Test: GLOMERULAR FILTRATION RATE; Value: > 60.0; Range: >35; Status: F Test: SODIUM LEVEL; Value: 145; Range: 136-145; Units: MEQ/L; Status: F Test: POTASSIUM SERUM; Value: 4.1; Range: 3.5-5.1; Units: MEQ/L; Status: F Test: CHLORIDE LEVEL; Value: 107; Range: 98-107; Units: MEQ/L; Status: F Test: CARBON DIOXIDE LEVEL; Value: 28; Range: 21-32; Units: MEQ/L; Status: F Test: ANION GAP; Value: 10; Range: 8-16; Units: MEQ/L; Status: F Test: CALCIUM LEVEL; Value: 9.2; Range: 8.8-10.2; Units: MG/DL; Status: F Test Note: ; Units are mL/min/1.73 m2 Chronic Kidney Disease Staging per NKF: Stage I & II GFR >=60 Normal to Mildly Decreased Stage III GFR 30-59 Moderately Decreased Stage IV GFR 15-29 Severely Decreased Stage V GFR <15 Very Little GFR Left ESRD GFR <15 on INSTALLER TECHNICIAN Lab Order: CBC with Diff; SPEC'M 11/25/16 13:45 Test: WHITE BLOOD COUNT; Value: 9.2; Range: 4.0-10.0; Units: K/mm3; Status: F Test: RED BLOOD COUNT; Value: 4.09; Range: 4.30-6.10; Abnormal: Below low normal; Units: M/mm3; Status: F Test: HEMOGLOBIN; Value: 12.1; Range: 14.0-18.0; Abnormal: Below low normal; Units: g/dl; Status: F Test: HEMATOCRIT; Value: 37.8; Range: 42.0-52.0; Abnormal: Below low normal; Units: %; Status: F Test: MEAN CORPUSCULAR VOLUME; Value: 92.5; Range: 80.0-96.0; Units: fl; Status: F Test: MEAN CORPUSCULAR HEMOGLOBIN; Value: 29.6; Range: 27.0-33.0; Units: pg; Status: F Test: MEAN CORPUSCULAR HGB CONC; Value: 32.0; Range: 32.0-36.5; Units: g/dl; Status: F Test: RED CELL DISTRIBUTION WIDTH; Value: 15.2; Range: 11.5-14.5; Abnormal: Above high normal; Units: %; Status: F Test: PLATELET COUNT, AUTOMATED; Value: 343; Range: 150-450; Units: k/mm3; Status: F Test: NEUTROPHILS %; Value: 77.7; Range: 36.0-66.0; Abnormal: Above high normal; Units: %; Status: F Test: LYMPH %; Value: 10.0; Range: 24.0-44.0; Abnormal: Below low normal; Units: %; Status: F Test: MONO %; Value: 8.8; Range: 0.0-5.0; Abnormal: Above high normal; Units: %; Status: F Test: EOS %; Value: 1.6; Range: 0.0-3.0; Units: %; Status: F Test: BASO %; Value: 0.5; Range: 0.0-1.0; Units: %; Status: F Test: LARGE UNSTAINED CELL %; Value: 1.4; Range: 0.0-4.0; Units: %; Status: F Test: NEUTROPHILS #; Value: 7.1; Range: 1.8-7.7; Units: K/mm3; Status: F Test: LYMPH #; Value: 0.9; Range: 1.5-4.5; Abnormal: Below low normal; Units: K/mm3; Status: F Test: MONO #; Value: 0.8; Range: 0.0-0.8; Units: K/mm3; Status: F Test: EOS #; Value: 0.1; Range: 0.0-0.50; Units: K/mm3; Status: F Test: BASO #; Value: 0.0; Range: 0.0-0.2; Units: K/mm3; Status: F Test: LARGE UNSTAINED CELL #; Value: 0.1; Range: 0.0-0.4; Units: K/mm3; Status: F Lab Order: Lipase; SPEC'11/25/16 13:45 Test: LIPASE; Value: 109; Range: 73-393; Units: U/L; Status: F Lab Order: Liver Profile; SPEC'11/25/16 13:45 Test: AST/SGOT; Value: 12; Range: 15-37; Abnormal: Below low normal; Units: U/L; Status: F Test: ALT/SGPT; Value: < 6; Range: 12-78; Abnormal: Below low normal; Units: U/L; Status: F Test: ALKALINE PHOSPHATASE; Value: 116; Range: 45-117; Units: U/L; Status: F Test: BILIRUBIN,TOTAL; Value: 0.4; Range: 0.2-1.0; Units: MG/DL; Status: F Test: BILIRUBIN,DIRECT; Value: 0.2; Range: 0.0-0.2; Units: MG/DL; Status: F Test: TOTAL PROTEIN; Value: 6.5; Range: 6.4-8.2; Units: GM/DL; Status: F Test: ALBUMIN; Value: 2.7; Range: 3.2-5.2; Abnormal: Below low normal; Units: GM/DL; Status: F Test: ALBUMIN/GLOBULIN RATIO; Value: 0.71; Range: 1.00-1.93; Abnormal: Below low normal; Status: F Lab Order: Prothrombin Time Profile\E\INR; SPEC'11/25/16 13:45 Test: PROTHROMBIN TIME; Value: 21.5; Range: 12.3-14.5; Abnormal: Above high normal; Units: SECONDS; Status: F Test: INR; Value: 1.86; Status: F Test Note: ; THERAPUTIC HUMAN INR VALUES INDICATIONS NORMAL RANGES PROPHYLAXIS/TREATMENT OF: VENOUS THROMBOSIS 2.0-3.0 PULMONARY EMBOLISM 2.0-3.0 PREVENTION OF SYSTEMIC EMBOLISM FROM: TISSUE HEART VALVES 2.0-3.0 ACUTE MYOCARDIAL INFARCTION 2.0-3.0 VALVULAR HEART DISEASE 2.0-3.0 ATRIAL FIBRILLATION 2.0-3.0 MECHANICAL VALVES(HIGH RISK) 2.5-3.5 RECURRENT MYOCARDIAL INFARCTION 2.5-3.5 Lab Order: Lactic Acid (Rao tube on ice); SPEC'11/25/16 13:44 Test: LACTIC ACID LEVEL, LACTATE; Value: 1.5; Range: 0.4-2.0; Units: MMOL/L; Status: F Lab Order: -Blood Culture; SPEC'11/25/16 14:40 Test: BLOOD CULTURE; Value: No growth after 24 hours . All specimens observed; Status: F Test: BLOOD CULTURE; Value: for 5 days. Results final at that time.; Status: F Test: BLOOD CULTURE; Value: No Growth after 48 hours. All Specimens observed; Status: F Test: BLOOD CULTURE; Value: for 7 days. Results final at that time.; Status: F Lab Order: CRP; SPEC'M 11/25/16 13:45 Test: C REACTIVE PROTEIN QUANTITATIV; Value: 1.34; Range: 0.00-0.30; Abnormal: Above high normal; Units: MG/DL; Status: F Lab Order: Sed Rate; SPEC'M 11/25/16 13:45 Test: ERYTHROCYTE SEDIMENTATION RATE; Value: 76; Range: 0-20; Abnormal: Above high normal; Units: mm/hr; Status: F Lab Order: BLOOD CULTURES; SPEC'M 11/25/16 13:44 Test: BLOOD CULTURE; Value: No growth after 24 hours . All specimens observed; Status: F Test: BLOOD CULTURE; Value: for 5 days. Results final at that time.; Status: F Test: BLOOD CULTURE; Value: No Growth after 48 hours. All Specimens observed; Status: F Test: BLOOD CULTURE; Value: for 7 days. Results final at that time.; Status: F Radiology Order: CT ABD & PELVIS: IV Contrast Only Test: CT ABD & PELVIS: IV Contrast Only REASON FOR EXAMINATION: psoas abscess; CT study of the abdomen pelvis with IV but without oral contrast:; ; History: Psoas abscess, acute bacterial diskitis in the lumbar spine at L1-2 and; L3-4. The patient is status-post catheter drainage right iliopsoas abscess.; Increased pain.; ; Comparison CT study is of the lumbar spine from 11/03/2016. Comparison is also; made with 10/14/[address] ; CT contrast dose: 100 mL of Isovue 370 is administered intravenously.; ; CT findings: There is some progressive bone destruction and superior collapse of; the L2 vertebral body. There is endplate destruction at the at the inferior; endplate of L1. These changes are somewhat more pronounced as well although L1; has not lost in the vertebral body heights. Centrally, the L2 vertebral body has; lost approximately 50%. There is destruction of the posterior cortex of the L2; vertebral body as well and there is evidence of epidural disease with; retropulsion or epidural abscess formation and central canal spinal stenosis at; L1-2. This appears to be more pronounced than on the 11/03/2016 study. There is; no visible paraspinal fluid or psoas fluid collection. The right iliopsoas; percutaneous drainage catheter remains in place without a discernible cavity in; the psoas. The changes at L3-4 are essentially status quo.; ; Left colonic diverticulosis without evidence of diverticulitis is again seen.; Small bilateral pleural effusions are seen along with calcific pleural plaquing.; No intra-abdominal abscess seen.; ; Impression:; ; Progressive bone destruction and loss of vertebral body height at L2 with; retropulsion. There is ventral and right ventral epidural inflammatory disease; at L1-2, question epidural abscess, which is more pronounced than on the; 11/03/2016 CT study. The right pigtail drainage catheter remains in place. No; observable soft-tissue abscess on either side.; ; ; Signed by; Manav Vargas MD 11/26/2016 08:00 A; Outcome: 15:08 CT Study completed. ck1 16:29 ER care complete, transfer ordered by Provider. sd1 17:31 Discharge Assessment: Patient awake, alert and oriented x 3. No cognitive and/or ck1 functional deficits noted. Patient verbalized understanding of disposition instructions. patient administered narcotics - yes. Patient was admitted to the hospital or transferred to another facility. The following High Risk Discharge criteria are identified: None. Transferred to [facility]. by EMS ground [facility] ambulance Transfer form completed. x-rays sent w/ patient. Condition: stable. Property :Personal belongings accompany Pt. 18:05 Admission hand-off: Report called to Ngozi Lewis RN. ck1 19:10 Transferred by EMS ground report to accompanying personnel Carole Adhikari signal circuit designer [facility] signal circuit designer. 19:17 Patient left the ED. sls1 Signatures: Dispatcher [employer] EDMS Nicolette Keller MD MD sd1 Winifred Coronel, Commercial Lending Assistant Unit lbd Yan JamisonRN Tiera Couch, Reg Reg Kyra Joaquin RN RN ck1 Mary Ulrich RN RN sls1 Jerome Arzola, RODENT EXTERMINATOR RODENT EXTERMINATOR jrd Shante Segal, RODENT EXTERMINATOR RODENT EXTERMINATOR ls3 Niyah GarciaRN RN kc3 Farida Stanford,RN RN kas2 Dejon Curiel, Reg Reg pm4 Chart Complete MTDD
--- NOTE | 2016-11-27 20:19 | EDDOCDS ---
Physician Documentation [facility] Name: Yamil Harvey Age: 81 yrs Sex: Male : 1935 Arrival Date: 11/25/2016 Time: 12:55 Bed 17 Private MD: Jagdish Bobby J Disposition: 11/25/16 16:29 Transfer ordered to [facility]. Diagnosis is Osteomyelitis - L2 with epidural abscess. - Reason for transfer: Higher level of care. - Accepting physician is Dr. Ibrahim. - Condition is Stable. - Problem is new. - Symptoms are unchanged. Historical: - Allergies: No known drug Allergies; - Home Meds: 1. ProAir HFA 90 mcg/actuation inhalation HFAA 1 puff every 4 hours as needed 2. Eliquis 5 mg oral tab 1 tab 2 times per day 3. bisacodyl 10 mg Rectal supp 1 suppository as needed for Constipation 4. Calcium + Vitamin D 500/1000/40 Oral 1 tab daily 5. diltiazem HCl 120 mg Oral cpER 1 cap once daily 6. Flomax 0.4 mg Oral cp24 1 cap once daily 7. lisinopril 5 mg oral tab 1 tab once daily 8. Anoro Ellipta 62.5-25 mcg/actuation inhalation dsdv 1 puff once daily 9. Areds 2-Eye vitamin 2 tab daily 10. Proscar 5 mg Oral tab 1 tab once daily 11. morphine 15 mg Oral TbER 1 tab every 12 hours 12. Percocet 5-325 mg Oral tab 1 tab every 6 hours as needed 13. leflunomide 20 mg oral tab 1 tab once daily 14. finasteride 5 mg oral tab 1 tab once daily 15. Breo Ellipta 100-25 mcg/dose inhalation dsdv 1 puff once daily 16. cefazolin 2 grams injection solr every 8 hours - PMHx: COPD; Cancer, Lung - Right; Hypertension; Macular Degeneration; BPH; Lumbar Discitis; Psoas Abscess; - PSHx: Wedge resection RLL; - Social history: Smoking status: Patient states former smoker of tobacco. No barriers to communication noted, The patient speaks fluent Nepalese. - Family history: Not pertinent. - : The pt / caregiver states he / she is on anticoagulants: Eliquis Home medication list is obtained from the patient, family members, [employer] import data. - Exposure Risk Screening:: None identified. Vital Signs: 11/25 13:11 BP 137 / 68; Pulse 76; Resp 20; Temp 98.0(O); Pulse Ox 96% on R/A; Weight 84.82 kg / jrd 187 lbs (R); Height 5 ft. 11 in. (180.34 cm); Pain 9/10; 15:07 BP 119 / 81 (auto/); ck1 15:08 Pulse 84 MON; Pulse Ox 95% ; ck1 15:22 BP 129 / 75 (auto/); ck1 15:23 Pulse 82 MON; Pulse Ox 95% ; ck1 15:37 BP 135 / 80 (auto/); ck1 15:38 Pulse 82 MON; Pulse Ox 92% ; ck1 15:52 BP 127 / 93 (auto/); ck1 15:52 Pulse 82 MON; Pulse Ox 93% ; ck1 16:05 Pulse 84 MON; Pulse Ox 95% ; ck1 16:07 BP 143 / 68 (auto/); ck1 16:22 BP 122 / 67 (auto/); ck1 16:23 Pulse 82 MON; Pulse Ox 96% ; ck1 16:37 BP 162 / 79 (auto/); ck1 16:38 Pulse 82 MON; Pulse Ox 94% ; ck1 16:52 BP 155 / 90 (auto/); ck1 16:53 Pulse 80 MON; Pulse Ox 94% ; ck1 17:07 BP 159 / 84 (auto/); ck1 17:08 Pulse 84 MON; Pulse Ox 94% ; ck1 17:37 BP 135 / 89 (auto/); ck1 17:38 Pulse 82 MON; Pulse Ox 94% ; ck1 17:52 BP 150 / 66 (auto/); ck1 17:53 Pulse 80 MON; Pulse Ox 93% ; ck1 18:07 BP 160 / 70 (auto/); ck1 18:08 Pulse 80 MON; Pulse Ox 95% ; ck1 18:11 Pulse 76 MON; Pulse Ox 94% ; ck1 18:22 BP 162 / 87 (auto/); ck1 18:23 Pulse 82 MON; ck1 18:37 BP 144 / 73 (auto/); ck1 18:38 Pulse 76 MON; ck1 18:52 BP 142 / 80 (auto/); kas2 18:52 Pulse 86 MON; kas2 18:52 BP 138 / 72; Pulse 82; Resp 18; Pulse Ox 95% ; Pain 0/10; kas2 19:07 BP 128 / 73 (auto/); kas2 19:07 Pulse 82 MON; kas2 19:13 Temp 96.9(O); ls3 19:15 Temp 98.0(O); kas2 13:11 Body Mass Index 26.08 (84.82 kg, 180.34 cm) jrd MDM: 13:01 Undress patient appropriately for examination ordered. sd1 13:01 -Blood Culture (Adults Only), peripheral from different site, or from device/port/PICC sd1 etc. if present ordered. 13:01 Amylase Ordered. EDMS 13:01 Basic Metabolic Profile Ordered. EDMS 13:01 CBC with Diff Ordered. EDMS 13:01 Lipase Ordered. EDMS 13:01 Liver Profile Ordered. EDMS 13:01 Prothrombin Time Profile\E\INR Ordered. EDMS 13:01 Lactic Acid (Rao tube on ice) Ordered. EDMS 13:01 -Blood Culture Ordered. EDMS 13:01 CRP Ordered. EDMS 13:02 Sed Rate Ordered. EDMS 13:02 NOTHING BY MOUTH+DIET ordered. EDMS 13:04 -Blood Culture (Adults Only), peripheral from different site, or from device/port/PICC jlf etc. if present complete. 13:06 BLOOD CULTURES Ordered. EDMS 13:47 CT ABD & PELVIS: IV Contrast Only Ordered. EDMS 14:11 oxyCODONE-acetaminophen 5 mg-325 mg 1 tabs PO once ordered. sd1 14:45 Amylase Reviewed. sd1 14:45 CBC with Diff Reviewed. sd1 14:45 Liver Profile Reviewed. sd1 14:45 Prothrombin Time Profile\E\INR Reviewed. sd1 14:45 CRP Reviewed. sd1 14:45 Basic Metabolic Profile Reviewed. sd1 14:45 Lipase Reviewed. sd1 14:45 Lactic Acid (Rao tube on ice) Reviewed. sd1 14:47 Financial registration complete. pm4 15:06 [facility] Payment Agreement was scanned into [employer] and attached to record. pm4 15:36 CBC with Diff Reviewed. sd1 15:36 Sed Rate Reviewed. sd1 16:28 NS 0.9% 1000 ml IV at 100 mL/hr continuous ordered. sd1 11/26 12:04 T-Sheet-- Draft Copy was scanned into [employer] and attached to record. gb Administered Medications: 11/25 14:29 Drug: oxyCODONE-acetaminophen 1 tabs [oxycodone-acetaminophen 5 mg-325 mg tablet (1 kc3 tabs)] Route: PO; 16:39 Drug: NS 0.9% 1000 ml [sodium chloride 0.9 % intravenous solution] Route: IV; Rate: 100 ck1 mL/hr; Site: right upper arm; Signatures: Dispatcher [employer] EDMS Nicolette Keller MD MD sd1 Yan JamisonRN RN po Tiera Looney, Reg Reg gb Kyra RamosRN RN ck1 Mary Ulrich RN RN sls1 Chuck Pratt, FOREIGN STUDENT ADVISER FOREIGN STUDENT ADVISER jlf Dejon Curiel, Reg Reg pm4 Niyah Garcia RN kc3 The chart was reviewed and I authenticate all verbal orders and agree with the evaluation and treatment provided.Corrections: (The following items were deleted from the chart) 14:12 13:01 IV Saline Lock ordered. sd1 sd1 Attachments: 15:06 [facility] Payment Agreement pm4 11/26 12:04 T-Sheet-- Draft Copy gb Chart Complete MTDD
--- NOTE | 2016-11-27 20:19 | EDDOCDS ---
Physician Documentation [facility] Name: Yamil Harvey Age: 81 yrs Sex: Male : 1935 Arrival Date: 11/25/2016 Time: 12:55 Bed 17 Private MD: Jagdish Bobby J Disposition: 11/25/16 16:29 Transfer ordered to [facility]. Diagnosis is Osteomyelitis - L2 with epidural abscess. - Reason for transfer: Higher level of care. - Accepting physician is Dr. Ibrahim. - Condition is Stable. - Problem is new. - Symptoms are unchanged. Historical: - Allergies: No known drug Allergies; - Home Meds: 1. ProAir HFA 90 mcg/actuation inhalation HFAA 1 puff every 4 hours as needed 2. Eliquis 5 mg oral tab 1 tab 2 times per day 3. bisacodyl 10 mg Rectal supp 1 suppository as needed for Constipation 4. Calcium + Vitamin D 500/1000/40 Oral 1 tab daily 5. diltiazem HCl 120 mg Oral cpER 1 cap once daily 6. Flomax 0.4 mg Oral cp24 1 cap once daily 7. lisinopril 5 mg oral tab 1 tab once daily 8. Anoro Ellipta 62.5-25 mcg/actuation inhalation dsdv 1 puff once daily 9. Areds 2-Eye vitamin 2 tab daily 10. Proscar 5 mg Oral tab 1 tab once daily 11. morphine 15 mg Oral TbER 1 tab every 12 hours 12. Percocet 5-325 mg Oral tab 1 tab every 6 hours as needed 13. leflunomide 20 mg oral tab 1 tab once daily 14. finasteride 5 mg oral tab 1 tab once daily 15. Breo Ellipta 100-25 mcg/dose inhalation dsdv 1 puff once daily 16. cefazolin 2 grams injection solr every 8 hours - PMHx: COPD; Cancer, Lung - Right; Hypertension; Macular Degeneration; BPH; Lumbar Discitis; Psoas Abscess; - PSHx: Wedge resection RLL; - Social history: Smoking status: Patient states former smoker of tobacco. No barriers to communication noted, The patient speaks fluent French. - Family history: Not pertinent. - : The pt / caregiver states he / she is on anticoagulants: Eliquis Home medication list is obtained from the patient, family members, [employer] import data. - Exposure Risk Screening:: None identified. Vital Signs: 11/25 13:11 BP 137 / 68; Pulse 76; Resp 20; Temp 98.0(O); Pulse Ox 96% on R/A; Weight 84.82 kg / jrd 187 lbs (R); Height 5 ft. 11 in. (180.34 cm); Pain 9/10; 15:07 BP 119 / 81 (auto/); ck1 15:08 Pulse 84 MON; Pulse Ox 95% ; ck1 15:22 BP 129 / 75 (auto/); ck1 15:23 Pulse 82 MON; Pulse Ox 95% ; ck1 15:37 BP 135 / 80 (auto/); ck1 15:38 Pulse 82 MON; Pulse Ox 92% ; ck1 15:52 BP 127 / 93 (auto/); ck1 15:52 Pulse 82 MON; Pulse Ox 93% ; ck1 16:05 Pulse 84 MON; Pulse Ox 95% ; ck1 16:07 BP 143 / 68 (auto/); ck1 16:22 BP 122 / 67 (auto/); ck1 16:23 Pulse 82 MON; Pulse Ox 96% ; ck1 16:37 BP 162 / 79 (auto/); ck1 16:38 Pulse 82 MON; Pulse Ox 94% ; ck1 16:52 BP 155 / 90 (auto/); ck1 16:53 Pulse 80 MON; Pulse Ox 94% ; ck1 17:07 BP 159 / 84 (auto/); ck1 17:08 Pulse 84 MON; Pulse Ox 94% ; ck1 17:37 BP 135 / 89 (auto/); ck1 17:38 Pulse 82 MON; Pulse Ox 94% ; ck1 17:52 BP 150 / 66 (auto/); ck1 17:53 Pulse 80 MON; Pulse Ox 93% ; ck1 18:07 BP 160 / 70 (auto/); ck1 18:08 Pulse 80 MON; Pulse Ox 95% ; ck1 18:11 Pulse 76 MON; Pulse Ox 94% ; ck1 18:22 BP 162 / 87 (auto/); ck1 18:23 Pulse 82 MON; ck1 18:37 BP 144 / 73 (auto/); ck1 18:38 Pulse 76 MON; ck1 18:52 BP 142 / 80 (auto/); kas2 18:52 Pulse 86 MON; kas2 18:52 BP 138 / 72; Pulse 82; Resp 18; Pulse Ox 95% ; Pain 0/10; kas2 19:07 BP 128 / 73 (auto/); kas2 19:07 Pulse 82 MON; kas2 19:13 Temp 96.9(O); ls3 19:15 Temp 98.0(O); kas2 13:11 Body Mass Index 26.08 (84.82 kg, 180.34 cm) jrd MDM: 13:01 Undress patient appropriately for examination ordered. sd1 13:01 -Blood Culture (Adults Only), peripheral from different site, or from device/port/PICC sd1 etc. if present ordered. 13:01 Amylase Ordered. EDMS 13:01 Basic Metabolic Profile Ordered. EDMS 13:01 CBC with Diff Ordered. EDMS 13:01 Lipase Ordered. EDMS 13:01 Liver Profile Ordered. EDMS 13:01 Prothrombin Time Profile\E\INR Ordered. EDMS 13:01 Lactic Acid (Rao tube on ice) Ordered. EDMS 13:01 -Blood Culture Ordered. EDMS 13:01 CRP Ordered. EDMS 13:02 Sed Rate Ordered. EDMS 13:02 NOTHING BY MOUTH+DIET ordered. EDMS 13:04 -Blood Culture (Adults Only), peripheral from different site, or from device/port/PICC jlf etc. if present complete. 13:06 BLOOD CULTURES Ordered. EDMS 13:47 CT ABD & PELVIS: IV Contrast Only Ordered. EDMS 14:11 oxyCODONE-acetaminophen 5 mg-325 mg 1 tabs PO once ordered. sd1 14:45 Amylase Reviewed. sd1 14:45 CBC with Diff Reviewed. sd1 14:45 Liver Profile Reviewed. sd1 14:45 Prothrombin Time Profile\E\INR Reviewed. sd1 14:45 CRP Reviewed. sd1 14:45 Basic Metabolic Profile Reviewed. sd1 14:45 Lipase Reviewed. sd1 14:45 Lactic Acid (Rao tube on ice) Reviewed. sd1 14:47 Financial registration complete. pm4 15:06 [facility] Payment Agreement was scanned into [employer] and attached to record. pm4 15:36 CBC with Diff Reviewed. sd1 15:36 Sed Rate Reviewed. sd1 16:28 NS 0.9% 1000 ml IV at 100 mL/hr continuous ordered. sd1 11/26 12:04 T-Sheet-- Draft Copy was scanned into [employer] and attached to record. gb Administered Medications: 11/25 14:29 Drug: oxyCODONE-acetaminophen 1 tabs [oxycodone-acetaminophen 5 mg-325 mg tablet (1 kc3 tabs)] Route: PO; 16:39 Drug: NS 0.9% 1000 ml [sodium chloride 0.9 % intravenous solution] Route: IV; Rate: 100 ck1 mL/hr; Site: right upper arm; Signatures: Dispatcher [employer] EDMS Nicolette Keller MD MD sd1 Yan JamisonRN RN po Tiera Looney, Reg Reg gb Kyra RamosRN RN ck1 Mary Ulrich RN RN sls1 Chuck Pratt, CLINIC DIRECTOR CLINIC DIRECTOR jlf Dejon Curiel, Reg Reg pm4 Niyah Garcia RN kc3 The chart was reviewed and I authenticate all verbal orders and agree with the evaluation and treatment provided.Corrections: (The following items were deleted from the chart) 14:12 13:01 IV Saline Lock ordered. sd1 sd1 Attachments: 15:06 [facility] Payment Agreement pm4 11/26 12:04 T-Sheet-- Draft Copy gb Chart Complete MTDD
== END 2016-11-25 19:17 | disposition short-term general hospital (02) ==
LOC: M ED 12:55
DX: M86.9 Osteomyelitis, unspecified (principal); G06.1 Intraspinal abscess and granuloma; J44.9 Chronic obstructive pulmonary disease, unspecified; I10 Essential (primary) hypertension; H35.30 Unspecified macular degeneration; N40.0 Benign prostatic hyperplasia without lower urinary tract symptoms; Z85.118 Personal history of other malignant neoplasm of bronchus and lung; Z87.891 Personal history of nicotine dependence; Z79.899 Other long term (current) drug therapy; Z79.51 Long term (current) use of inhaled steroids; Z79.01 Long term (current) use of anticoagulants
CPT/HCPCS: 36415; 51798; 74177; 80048; 80076; 82150; 83605; 83690; 85025; 85610; 85652; 86140; 87040; 87070; 87205; 96372; 99285; G0463; J1885; Q9967

== ENCOUNTER → 2016-11-25 | Outpatient (REF) | payer MEDICARE, OTHER | LOC: M SFHCPLAZ 17:09 | PROVIDERS: ATTEND Internal Medicine Infectious Disease | DX: K68.12 Psoas muscle abscess (principal) ==

== ENCOUNTER → 2016-11-25 | Outpatient (REF) | payer MEDICARE, OTHER | LOC: M SFHCPLAZ 11:11 | PROVIDERS: ATTEND Internal Medicine Infectious Disease | DX: M46.47 Discitis, unspecified, lumbosacral region (principal) ==

== ENCOUNTER → 2016-12-08 | Outpatient (REF) | payer MEDICARE, OTHER ==
[2016-12-08 08:39] LABS: MEAN CORPUSCULAR HEMOGLOBIN 28.9 pg (27.0-33.0); MEAN CORPUSCULAR HGB CONC 30.9 g/dl (32.0-36.5); MEAN CORPUSCULAR VOLUME 93.5 fl (80.0-96.0); RED CELL DISTRIBUTION WIDTH 15.3 % (11.5-14.5); WHITE BLOOD COUNT 6.2 K/mm3 (4.0-10.0)
== END ==
LOC: SKLAB3 07:00
PROVIDERS: ATTEND Family Medicine
DX: M86.19 Other acute osteomyelitis, multiple sites (principal)

== ENCOUNTER → 2016-12-15 | Outpatient (REF) ==
[2016-12-15 16:00] LABS: ANION GAP 8 MEQ/L (8-16); BLOOD UREA NITROGEN 12 MG/DL (7-18); CALCIUM LEVEL 8.4 MG/DL (8.8-10.2); CARBON DIOXIDE LEVEL 29 MEQ/L (21-32); CHLORIDE LEVEL 101 MEQ/L (98-107); GLOMERULAR FILTRATION RATE > 60.0 (>35); GLUCOSE, FASTING 102 MG/DL (83-110); POTASSIUM SERUM 4.8 MEQ/L (3.5-5.1); SODIUM LEVEL 138 MEQ/L (136-145)
[2016-12-16 08:19] LABS: MEAN CORPUSCULAR HEMOGLOBIN 29.3 pg (27.0-33.0); MEAN CORPUSCULAR HGB CONC 31.7 g/dl (32.0-36.5); MEAN CORPUSCULAR VOLUME 92.5 fl (80.0-96.0); RED CELL DISTRIBUTION WIDTH 16.1 % (11.5-14.5); WHITE BLOOD COUNT 5.9 K/mm3 (4.0-10.0)
== END ==
LOC: SKLAB3 07:00
PROVIDERS: ATTEND Internal Medicine
DX: G06.1 Intraspinal abscess and granuloma (principal)

== ENCOUNTER → 2016-12-16 | Outpatient (REF) ==
--- NOTE | 2016-12-16 12:47 | REP ---
CHEST X-RAY: Two views. HISTORY: Chest congestion. Comparison chest x-ray October 07, 2016. FINDINGS: A right-sided PICC line terminates in the expected location of the superior vena cava. There is fissural thickening and some fissural fluid is seen posteriorly on the lateral radiograph. The right hemidiaphragm remains somewhat elevated. Interstitial markings are prominent diffusely. A right upper perihilar area of density is seen probably related to the fissural fluid seen on the lateral radiograph. There are also surgical sutures in the right upper lobe. IMPRESSION: Fissural fluid seen. Postoperative sutures right upper lobe. Prominent pulmonary interstitial markings. No definite focal infiltrate is seen. Signed by Manav Vargas MD 12/16/2016 12:51 P
== END ==
LOC: SKLAB3 10:26
PROVIDERS: ATTEND Internal Medicine
DX: R19.7 Diarrhea, unspecified (principal)

== ENCOUNTER → 2016-12-17 | Outpatient (CLI) | payer MEDICARE, OTHER ==
[~2016-12-17] MED LIST changes: +ISOVUE-370 76% 100ML VIAL (Q9967) As Ordered ONE
--- NOTE | 2016-12-17 15:07 | REP ---
CT LUMBAR SPINE WITH IV CONTRAST: 12/17/2016. Comparison: Noncontrast CT 11/03/2016, MRI spine without and with contrast 11/03/2016, 11/05/2016. Clinical history: Multilevel discitis, osteomyelitis. Follow-up. Findings: After infusion of 100 ml of Isovue 370, axial imaging from T11-S3 performed with coronal and sagittal bone window reconstructions. Findings: T11 and T12 vertebral bodies and associated disc spaces were intact. T12-L1 level shows discitis osteomyelitis complex with progression of superior endplate depression and destructive changes of the upper aspect of L2. Some vacuum phenomenon is noted at the disc space. Posteriorly protrusion of the disc and bone fragment is noted causing some increase in the spinal stenosis. Maximum AP diameter of the canal at that level is still 9.8 mm, however. Paraspinal soft tissue density is noted consistent with abscess fragmentation of the bone and destruction of L2 and lower aspect of L1 vertebral bodies, progressed although more so for L2. There is vacuum phenomenon now present at L2-3 with the end plates intact. This may be very early discitis osteomyelitis. On both sides, the paraspinal musculature is decreased in size and the abscesses in the paraspinal regions smaller. At L3-4 posterior osteophytic ridging noted, endplates are irregular with small vacuum phenomenon noted. This suggests some discitis osteomyelitis. There is spinal stenosis due to posterior osteophytes and ligamentum and facet hypertrophy and this is moderately severe. I do not see significant progressive changes at L3-4. At L4-5 significant disc space narrowing with almost complete loss of the disc space at this level. Again the paraspinal soft tissues show smaller psoas muscle abscess. Tight spinal stenosis from posterior osteophytic ridging, ligamentum flavum and facet hypertrophy noted with lateral recess stenosis and foraminal encroachment. The endplates are showing further destruction; has a progressive discitis osteomyelitis feature. At L5, S1 posterior osteophytic ridging without central canal stenosis. Foramina with some mild encroachment. I do not see progressive changes at this level. Atherosclerotic calcifications aorta and iliac vessels. There are no other new findings. Impression: 1. Progressive discitis osteomyelitis appearance of the L1-2 level with greater compression deformity, destruction of the L2 vertebral body upper half and some mild progression at the inferior aspect of L1. The paraspinal/psoas abscesses are smaller. 2. At L2-3, there is now vacuum phenomena and early changes of discitis osteomyelitis evident. Smaller paraspinal muscles indicating decrease in size of psoas abscesses. 3. The L3-4 and L4-5 levels show progressive destructive changes at the endplates with suspected discitis osteomyelitis and central canal stenosis due to combined factors. 4. The L5-S1 level shows degenerative changes without significant central canal stenosis. Mild foraminal encroachment. No progressive changes at this level. No other new or interval changes other than described above. Signed by Pankaj Capone MD 12/17/2016 04:47 P
== END ==
LOC: M RAD 12:10
PROVIDERS: ATTEND Internal Medicine
DX: G06.1 Intraspinal abscess and granuloma (principal)
CPT/HCPCS: 72132; Q9967

== ENCOUNTER → 2016-12-19 | Outpatient (REF) ==
[~2016-12-19] MED LIST changes: -ISOVUE-370 76% 100ML VIAL (Q9967) As Ordered ONE
== END ==
LOC: SKLAB3 08:41
PROVIDERS: ATTEND Internal Medicine
DX: J20.9 Acute bronchitis, unspecified (principal)

== ENCOUNTER → 2016-12-22 | Outpatient (REF) ==
[2016-12-22 08:41] LABS: MEAN CORPUSCULAR HEMOGLOBIN 28.8 pg (27.0-33.0); MEAN CORPUSCULAR VOLUME 92.9 fl (80.0-96.0)
[2016-12-22 09:12] LABS: ANION GAP 8 MEQ/L (8-16); BLOOD UREA NITROGEN 12 MG/DL (7-18); CALCIUM LEVEL 8.9 MG/DL (8.8-10.2); CARBON DIOXIDE LEVEL 34 MEQ/L (21-32); CHLORIDE LEVEL 101 MEQ/L (98-107); GLOMERULAR FILTRATION RATE > 60.0 (>35); GLUCOSE, FASTING 89 MG/DL (83-110); POTASSIUM SERUM 4.4 MEQ/L (3.5-5.1); SODIUM LEVEL 143 MEQ/L (136-145)
== END ==
LOC: SKLAB3 12:39
PROVIDERS: ATTEND Internal Medicine
DX: M86.19 Other acute osteomyelitis, multiple sites (principal)

== ENCOUNTER → 2016-12-29 | Outpatient (REF) ==
[2016-12-29 09:45] LABS: MEAN CORPUSCULAR HEMOGLOBIN 29.1 pg (27.0-33.0); MEAN CORPUSCULAR VOLUME 93.6 fl (80.0-96.0); RED CELL DISTRIBUTION WIDTH 15.7 % (11.5-14.5); WHITE BLOOD COUNT 8.6 K/mm3 (4.0-10.0)
[2016-12-29 10:12] LABS: ANION GAP 10 MEQ/L (8-16); BLOOD UREA NITROGEN 13 MG/DL (7-18); CALCIUM LEVEL 9.1 MG/DL (8.8-10.2); CARBON DIOXIDE LEVEL 31 MEQ/L (21-32); CHLORIDE LEVEL 101 MEQ/L (98-107); CREATININE FOR GFR 0.79 MG/DL (0.70-1.30); GLOMERULAR FILTRATION RATE > 60.0 (>35); GLUCOSE, FASTING 115 MG/DL (83-110); POTASSIUM SERUM 4.2 MEQ/L (3.5-5.1); SODIUM LEVEL 142 MEQ/L (136-145)
== END ==
LOC: SKLAB3 09:33
PROVIDERS: ATTEND Internal Medicine
DX: G06.1 Intraspinal abscess and granuloma (principal)

== ENCOUNTER → 2017-01-05 | Outpatient (REF) ==
[2017-01-05 09:03] LABS: ANION GAP 7 MEQ/L (8-16); BLOOD UREA NITROGEN 20 MG/DL (7-18); CALCIUM LEVEL 9.1 MG/DL (8.8-10.2); CARBON DIOXIDE LEVEL 31 MEQ/L (21-32); CHLORIDE LEVEL 104 MEQ/L (98-107); CREATININE FOR GFR 0.79 MG/DL (0.70-1.30); GLOMERULAR FILTRATION RATE > 60.0 (>35); GLUCOSE, FASTING 90 MG/DL (83-110); POTASSIUM SERUM 4.3 MEQ/L (3.5-5.1); SODIUM LEVEL 142 MEQ/L (136-145)
[2017-01-05 09:43] LABS: MEAN CORPUSCULAR HEMOGLOBIN 29.6 pg (27.0-33.0); MEAN CORPUSCULAR HGB CONC 31.4 g/dl (32.0-36.5); MEAN CORPUSCULAR VOLUME 94.3 fl (80.0-96.0); PLATELET COUNT, AUTOMATED 282 k/mm3 (150-450)
[2017-01-05 10:39] LABS: ERYTHROCYTE SEDIMENTATION RATE > 140 mm/hr (0-20)
== END ==
LOC: SKLAB3 10:38
PROVIDERS: ATTEND Internal Medicine
DX: G06.1 Intraspinal abscess and granuloma (principal)

== ENCOUNTER → 2017-01-20 | Outpatient (REF) | payer MEDICARE, OTHER | LOC: M SFHCPLAZ 10:42 | PROVIDERS: ATTEND Internal Medicine Infectious Disease | DX: M46.47 Discitis, unspecified, lumbosacral region (principal) ==

== ENCOUNTER → 2017-01-21 | Outpatient (REF) | payer MEDICARE, OTHER ==
[2017-01-21 14:19] LABS: ANION GAP 10 MEQ/L (8-16); BLOOD UREA NITROGEN 10 MG/DL (7-18); CALCIUM LEVEL 8.9 MG/DL (8.8-10.2); CARBON DIOXIDE LEVEL 30 MEQ/L (21-32); CHLORIDE LEVEL 101 MEQ/L (98-107); CREATININE FOR GFR 0.73 MG/DL (0.70-1.30); GLOMERULAR FILTRATION RATE > 60.0 (>35); GLUCOSE, FASTING 96 MG/DL (83-110); SODIUM LEVEL 141 MEQ/L (136-145)
[2017-01-21 14:22] LABS: MEAN CORPUSCULAR HEMOGLOBIN 29.2 pg (27.0-33.0); MEAN CORPUSCULAR HGB CONC 31.5 g/dl (32.0-36.5); MEAN CORPUSCULAR VOLUME 92.9 fl (80.0-96.0); RED CELL DISTRIBUTION WIDTH 15.5 % (11.5-14.5); WHITE BLOOD COUNT 9.4 K/mm3 (4.0-10.0)
== END ==
LOC: M SHH 13:25
PROVIDERS: ATTEND Internal Medicine Infectious Disease
DX: M46.47 Discitis, unspecified, lumbosacral region (principal)

== ENCOUNTER 2017-02-23 15:07 | Inpatient (IN) | payer MEDICARE, OTHER ==
[~2017-02-23] VITALS: Ht 180.3 cm; Wt 100.9 kg
[~2017-02-23 15:07] MED LIST changes: +ACET50TAOT PO; +BREO1INH INH; +COUM1TAB19 PO; +LASI40TA PO; +LIDO5TD TD; +NEUR100C PO; +PERCOCET PO; +PROA1AER INH; +PROS5TAB PO; +RIFA150C PO; +TRAM50TA2 PO; +[UNRECOGNIZED DRUG - CODE] IV
[2017-02-23] MEDS ORDERED: SENNA 8.6 MG TAB (SENOKOT) PO PRN (15:45)
[2017-02-23] MEDS ORDERED: ALBUTEROL 90 MCG/ACT 8GM HFA INHALER INH PRN (15:45)
[2017-02-23] MEDS ORDERED: NAFCILLIN 2 GM IV SCH (15:45)
[2017-02-23 16:40] VITALS: BP 153/77
[2017-02-23] MEDS: NAFCILLIN SOD 2 GM in D5W MINI-BAG PLUS 100 ML IV SCH ×2 (19:36→23:03)
[2017-02-23] MEDS: SODIUM CHLORIDE 0.9% INJ 10 ML SYR IV SCH (19:37)
[2017-02-23] MEDS: BUDESONIDE 180MCG INHALER (PULMICORT FLEXHALER) INH SCH ×2 (19:45→21:38)
[2017-02-23 20:00] VITALS: BP 147/80
[2017-02-23] MEDS: **NOTE PATIENT COMMENT** MISC XX SCH (21:00)
[2017-02-23] MEDS: GABAPENTIN 400 MG CAP PO SCH (21:09)
[2017-02-23] MEDS: oxyCODONE 10 MG CR TAB PO SCH (21:11)
[2017-02-23] MEDS: IPRATROPIUM 0.5MG/ALBUTEROL 2.5MG INH SOL UD 3ML (DUONEB)(J7620) NEB SCH (21:38)
--- NOTE | 2017-02-23 22:44 | PMRHPE ---
DATE OF ADMISSION: 02/23/2017 CHIEF COMPLAINT: Rehabilitation of non-traumatic cauda equina compression secondary to abscess, secondary to osteomyelitis and discitis with methicillin-sensitive Staphylococcus aureus of L1 and L2 osteomyelitis. Patient previously treated for this, had been transitioned home on antibiotics. HISTORY OF THE PRESENT ILLNESS: The patient is an 81-year-old white male who had been found to have discitis and methicillin-sensitive Staphylococcus aureus (MSSA) infection and was treated with intravenous (IV) antibiotics and then oral. He reports that 5 days after transition off of antibiotics, he had a flare-up and was found to have an abscess causing increased pain and weakness and overall fatigue and malaise. The patient was readmitted to [facility] on 01/28/2017 for this, and due to the stress of the infection, had some decompensation of his chronic obstructive pulmonary disease (COPD), requiring 4 liters per minute of oxygen, as well as hypokalemia and hypomagnesemia were present along with colitis, urinary retention. The patient was febrile to 103 degrees, though denied chills and night sweats. Evaluation showed an abscess with impingement on the cauda equina and root at the L1-2 level. The patient had needle drainage of this and has been on a course of nafcillin 2 grams every 4 hours IV along with rifampin and had continued to be plagued by pain and weakness of the lower extremities. The patient is interested in improving his overall pain control, lower extremity strength and function, to facilitate return to home with family. PAST MEDICAL HISTORY: Includes lung resection of the right lower lobe for non-small cell cancer as well as benign prostatic hypertrophy, urinary retention , hypertension, COPD. ALLERGIES: The patient has no specific allergies; however, has had adverse reactions to MORPHINE that caused him to feel crazy with it. MEDICATIONS: His medications at the time of transfer are: - albuterol sulfate - DuoNeb - Pulmicort Flexhaler - diltiazem - finasteride - furosemide - gabapentin 900 mg per day - lidocaine patch - lisinopril - nafcillin 2 grams every 4 hours IV - oxycodone - rifampin - Senokot - tamsulosin - tramadol - Coumadin Patient also on: - Anoro Ellipta inhaler, which is his home medication. PAST SURGICAL HISTORY: Includes the right lower lobe resection. SOCIAL HISTORY: The patient lives with his family. He does not smoke. He has not smoked since 1993. He does have a history of asbestos exposure in the past. He denies any illicit drug use, and he has been using a walker to ambulate. He does have a supportive family that helps him out at home. FAMILY HISTORY: Patient with two sons and daughters; however, one daughter in 2011 due to pulmonary embolism. One sister has due to lung cancer and his mother with atherosclerotic cardiovascular disease is also . REVIEW OF SYSTEMS: Negative on general. Negative HEENT. Negative pulmonary except the patient reports requiring oxygen by nasal cannula when he sleeps and when he lays down to rest. He has been diagnosed with sleep apnea, but refuses to use continuous positive airway pressure (CPAP). Negative cardiovascular, though possible history of atrial fibrillation. Negative gastrointestinal (GI). Negative genitourinary (). Musculoskeletal is the back pain and pain down the legs. Neurologic is the weakness down the legs and some decrease in light touch from the knees distally. PHYSICAL EXAMINATION: GENERAL: The patient is a fairly well-nourished, well-developed, average size, elderly white male who looks approximately his stated age of 81 but does have some increase in his knuckles consistent with osteoarthritis but also some atrophy in the interossei in the hands and some arthritic changes noted in feet as well. VITAL SIGNS: Temperature is 98.4, blood pressure 153/77 with pulse 84, respirations 18 and patient is 92% pulse oximetry on room air at this point. HEENT: Normocephalic, atraumatic. Pupils are equal, round, reactive to light and accommodation. Extraocular motions are intact. Tongue has some coating to it, possible thrush. NECK: Supple. CORONARY: Shows a regular rate and rhythm with normal S1 and S2 without S3, S4, murmurs or rubs and the patient does have 2/4 bilateral radial pulses. ABDOMEN: Mildly obese. Bowel sounds are present in all quadrants. There is no palpable tenderness or masses. EXTREMITIES: As noted above with arthritic changes. Good color and warmth is present. SKIN: Warm and dry throughout. NEUROLOGIC: The patient is alert and oriented to person, place, time and situation. Speech is clear, coherent and appropriate. Hearing is somewhat decreased. Motor shows 5/5 in bilateral upper extremities but 4- to 4+ in the lower extremity, decreased more distally than proximally with vibratory sense intact in bilateral upper and lower extremity but decreased from the knees distally on sensory. CBC shows mild to moderate anemia with a hemoglobin of 9.8, hematocrit of 30.8, elevated RDW of 16.9, INR of 2.29 this morning. Electrolytes within normal limits but BUN mildly elevated at 25 with normal creatinine, GFRs and decrease in iron and iron binding capacity. No elevation of liver enzymes on today's testing. An aspirate of the abscess showed MSSA that is sensitive to nafcillin and rifampin. IMPRESSION/ADMITTING DIAGNOSIS: 1. Rehabilitation of non-traumatic cauda equina syndrome secondary to compression by MSSA abscess at L1-L2 region with likely arachnoiditis causing pain as well as weakness in the distal lower extremities. I do feel the patient is likely to benefit from increasing his pain regimen by going up on Neurontin from 900 mg, which is low therapeutic, to higher levels and will immediately increase to 1200 mg per day and increase as needed to get better control of this, which I think is neurogenic pain. Also, proceed with physical and occupational therapy to increase strength, endurance and mobility to allow the patient to become modified independent to independent in activities of daily living and mobility, including modified independent with stairs so that he can get into and out of his home. Furthermore, to manage his neurogenic pain, noted above, will also use tramadol and transition his oxycodone, which has varied from 20 to 40 mg per day to 10 mg of OxyContin twice a day to provide continuous steady effect with oxycodone 5 mg instant release every 6 hours as needed for break-through pain, as well as 50 mg of tramadol every 6 hours. Consideration for a trial of TENS should also be considered. Due to the osteomyelitis of the L1 and L2 vertebra, patient to continue using his back brace at all times when out of bed. 2. Chronic obstructive pulmonary disease with some obstructive sleep apnea. Will go ahead and order oxygen for use when sleeping and resting, also if needed for therapy and conditioning. Will also continue the patient on his inhalers, including the Anoro Ellipta inhaler as well as DuoNebs, Pulmicort Flexhaler and Proventil as needed. 3. Deep vein thrombosis (DVT) prophylaxis. Will proceed with continuing the Coumadin as well as should be prophylactic against possible atrial fibrillation if patient goes in and out of it. Target range will be 2.0 to 3.0. 4. Anemia: Will continue to monitor this. May consider iron supplementation. POST-ADMISSION PHYSICIAN EVALUATION: Patient with decreased mobility and self-care skills, largely related to pain, partially to weakness and sensory decline with cauda equina syndrome and likely arachnoiditis. As pain control gets better, patient's mobility and skills should increase. I am hoping that this will occur fairly quickly, and I think the patient is likely to benefit from neurorehabilitation, including physical, occupational therapies along with rehabilitation nursing, plus physiatry and adjusting medication to improve function, also education on bowel and bladder management. I think the patient has demonstrated that he has the ability to participate in 3 hours of therapy per day, but they need to not be all back to back but rather staggered apart. However, probably should try to have PT and OT reasonably close together so a single dose of oxycodone instant release will cover the therapy and allow the patient to have best control of his pain for participation. The patient is anticipated to be discharged to home. I feel his prognosis is fairly good. His estimated length of stay is approximately 1 week. Time spent in chart review, history and physical and documentation was greater than 70 minutes. [facility]
[2017-02-23] MEDS: SODIUM CHLORIDE 0.9% INJ 10 ML SYR IV PRN (23:03)
[2017-02-24] MEDS: NAFCILLIN SOD 2 GM in D5W MINI-BAG PLUS 100 ML IV SCH ×6 (03:14→23:20)
[2017-02-24] MEDS: SODIUM CHLORIDE 0.9% INJ 10 ML SYR IV PRN ×2 (03:15→23:20)
[2017-02-24] MEDS: SODIUM CHLORIDE 0.9% INJ 10 ML SYR IV SCH ×2 (05:10→18:55)
[2017-02-24 05:35] LABS: MEAN CORPUSCULAR HEMOGLOBIN 28.9 pg (27.0-33.0); MEAN CORPUSCULAR HGB CONC 32.1 g/dl (32.0-36.5); PLATELET COUNT, AUTOMATED 307 k/mm3 (150-450); RED CELL DISTRIBUTION WIDTH 16.7 % (11.5-14.5); WHITE BLOOD COUNT 4.6 K/mm3 (4.0-10.0)
[2017-02-24 05:40] LABS: INR 2.77
[2017-02-24 06:00] VITALS: BP 147/68
[2017-02-24 06:09] LABS: ALBUMIN 1.7 GM/DL (3.2-5.2); ALBUMIN/GLOBULIN RATIO 0.38 (1.00-1.93); ALKALINE PHOSPHATASE 69 U/L (45-117); ALT/SGPT < 6 U/L (12-78); ANION GAP 9 MEQ/L (8-16); AST/SGOT 10 U/L (15-37); BLOOD UREA NITROGEN 24 MG/DL (7-18); CALCIUM LEVEL 8.8 MG/DL (8.8-10.2); CARBON DIOXIDE LEVEL 29 MEQ/L (21-32); CHLORIDE LEVEL 101 MEQ/L (98-107); CREATININE FOR GFR 1.14 MG/DL (0.70-1.30); GLOMERULAR FILTRATION RATE > 60.0 (>35); GLUCOSE, FASTING 96 MG/DL (83-110); POTASSIUM SERUM 3.9 MEQ/L (3.5-5.1); SODIUM LEVEL 139 MEQ/L (136-145); TOTAL PROTEIN 6.2 GM/DL (6.4-8.2)
[2017-02-24] MEDS: traMADol 50 MG TAB PO PRN ×2 (06:16→17:41)
[2017-02-24 06:19] LABS: ANISOCYTOSIS 1+; BANDS 1 % (< 11); EOSINOPHILS 4 % (0-5)
[2017-02-24] MEDS: BUDESONIDE 180MCG INHALER (PULMICORT FLEXHALER) INH SCH (07:45)
[2017-02-24] MEDS: IPRATROPIUM 0.5MG/ALBUTEROL 2.5MG INH SOL UD 3ML (DUONEB)(J7620) NEB SCH ×2 (07:47→16:00)
[2017-02-24] MEDS: LIDOCAINE 5% (LIDODERM) PATCH TD SCH (08:49)
[2017-02-24] MEDS: LISINOPRIL 5 MG TAB PO SCH (08:50)
[2017-02-24] MEDS: FUROSEMIDE 40 MG TAB PO SCH (08:50)
[2017-02-24] MEDS: oxyCODONE 10 MG CR TAB PO SCH ×2 (08:50→21:48)
[2017-02-24] MEDS: FINASTERIDE 5 MG TAB PO SCH (08:50)
[2017-02-24] MEDS: GABAPENTIN 400 MG CAP PO SCH ×3 (08:51→21:48)
[2017-02-24] MEDS ORDERED: TAMSULOSIN 0.4 MG CAP PO SCH (09:00)
--- NOTE | 2017-02-24 12:30 | IPNPDOC ---
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 Patient reports continued pain with some improvement, still having significant problems with retention of urine, but no fever chills at this time. ALLERGIES: See Below MEDICATIONS: Reviewed, see below. OBJECTIVE: VITAL SIGNS: Please see below. PHYSICAL EXAMINATION: GENERAL: Well-nourished well-developed elderly white male in [facility] orthosis was in mild musculoskeletal distress. He is alert and oriented 3, pleasant and cooperative. Patient participating well with therapy. HEENT: Normocephalic/atraumatic. CARDIOVASCULAR: Regular rate and rhythm with normal S1-S2, and 2 out 4 radial pulses bilaterally. LUNGS: Mild diffuse wheezing throughout the lungs but overall moving air well. ABDOMEN: Benign, nontender, bowel sounds present throughout. NEUROLOGICAL: No motor changes in the lower extremities. Upper extremity R sensorimotor intact. LABORATORY DATA: Reviewed. Please see below. MICROBIOLOGY: Please see below. IMAGING: No new. DVT prophylaxis ordered?: Patient continues on Coumadin. INR appears to be climbing, so I will decrease from 6mg to 2 mg tonight at 5 PM. ASSESSMENT AND PLAN: 1. Rehabilitation of cauda equina syndrome: I do think patient is gaining some benefit out of the long-acting oxycodone but needs to time the short acting to be optimal during his therapies. Patient is starting the increased dose of gabapentin however I believe I will need to move this up bit higher to to achieve desired results. Likely patient will need to be closer 2000 mg to 2400 mg per day versus new dose of 1200 mg per day. 2. Urinary retention: I will increase the Flomax to 0.8 mg by mouth daily at bedtime starting tonight and continue bladder scans and intermittent catheterization. 3. Osteomyelitis/discitis: Patient continuing on nafcillin for anticipated 8 weeks total before transition to oral medications. 4. COPD: Patient reports doing much better with his home medications of Anoro Ellipta and Breo Ellipta, so I will allow him to resume those and discontinue the Pulmicort inhaler for now. Also will continue the duo nebs every 8 hours for now. TIME SPENT: Chart Review, examination and documentation greater than 25 minutes. Allergies Coded Allergies: Morphine (Verified Adverse Reaction, Intermediate, confusion, 01/28/17) Vital Signs Vital Signs Date Time Temp Pulse Resp B/P Pulse Ox O2 Delivery O2 Flow Rate FiO2 02/24/17 08:50 16 02/24/17 08:50 147/68 02/24/17 08:50 71 02/24/17 06:00 97.3 92 Nasal Cannula 2.0 Laboratory Data CBC/BMP Laboratory Tests 02/24/17 05:18 Calcium Level 8.8, Aspartate Amino Transf (AST/SGOT) 10 L, Alanine Aminotransferase (ALT/SGPT) < 6 L, Alkaline Phosphatase 69, Total Bilirubin 1.0 , Total Protein 6.2 L, Albumin 1.7 L, Red Blood Count 3.24 L, Mean Corpuscular Volume 90.0, Mean Corpuscular Hemoglobin 28.9, Mean Corpuscular Hemoglobin Concent 32.1, Red Cell Distribution Width 16.7 H, Neutrophils (%) (Auto) , Lymphocytes (%) (Auto) , Monocytes (%) (Auto) , Eosinophils (%) (Auto) , Basophils (%) (Auto) , Neutrophils # (Auto) , Lymphocytes # (Auto) , Monocytes # (Auto) , Eosinophils # (Auto) , Basophils # (Auto) Labs 24H Laboratory Tests 2 02/24/17 05:18: Blood Urea Nitrogen 24H, Creatinine 1.14, Sodium Level 139, Potassium Level 3.9 , Chloride Level 101, Carbon Dioxide Level 29, Calcium Level 8.8, Aspartate Amino Transf (AST/SGOT) 10L, Alanine Aminotransferase (ALT/SGPT) < 6L, Alkaline Phosphatase 69, Total Bilirubin 1.0, Total Protein 6.2L, Albumin 1.7L, Albumin/ Globulin Ratio 0.38L, Anion Gap 9, Anisocytosis 1+, Band Neutrophils 1, White Blood Count 4.6, Red Blood Count 3.24L, Hemoglobin 9.4L, Hematocrit 29.2L, Mean Corpuscular Volume 90.0, Mean Corpuscular Hemoglobin 28.9, Mean Corpuscular Hemoglobin Concent 32.1, Red Cell Distribution Width 16.7H, Platelet Count 307, Neutrophils (%) (Auto) , Lymphocytes (%) (Auto) , Monocytes (%) (Auto) , Eosinophils (%) (Auto) , Basophils (%) (Auto) , Neutrophils # (Auto) , Lymphocytes # (Auto) , Monocytes # (Auto) , Eosinophils # (Auto) , Basophils # ( Auto) , Eosinophils (Manual) 4, Glomerular Filtration Rate > 60.0, Large Unclassified Cells # , Large Unclassified Cells % , Lymphocytes (Manual) 39, Monocytes (Manual) 4, Neutrophils 52, Platelet Estimate NORMAL, Prothromb Time International Ratio 2.77, Prothrombin Time 29.3H Current Medications Current Medications Current Medications Albuterol Sulfate (Proventil, Ventolin Hfa) 2 puff Q4HP PRN INH SHORTNESS OF BREATH Last administered on 02/23/17 21:37; Start 02/23/17 at 15:45; Stop 03/25 at 15:44 Albuterol/ Ipratropium (Duoneb (Ipr 0.5mg/Alb 2.5mg)) 3 ml RQ8H NEB ; Start 10/02 at 00:00; Stop 03/26/17 at 00:00 Budesonide (Pulmicort Flexhaler) 2 puff BID INH Last administered on 02/24/17 07:45; Start 02/23/17 at 21:00; Stop 02/24/17 at 12:09; Status DC Diltiazem HCl (Cardizem Cd) 120 mg DAILY PO Last administered on 02/24/17 08: 50; Start 02/24/17 at 09:00; Stop 03/26/17 at 08:59 Finasteride (Proscar) 5 mg DAILY PO Last administered on 02/24/17 08:50; Start 02/24/17 at 09:00; Stop 03/26/17 at 08:59 Furosemide (Lasix) 40 mg DAILY PO Last administered on 02/24/17 08:50; Start 02/24/17 at 09:00; Stop 03/26/17 at 08:59 Gabapentin (Neurontin) 400 mg TID PO Last administered on 02/24/17 08:51; Start 02/23/17 at 21:00; Stop 02/26/17 at 20:59 Heparin Sodium (Heparin (Flush)) 200 units ASDIRECTED PRN IV SEE LABEL COMMENTS Last administered on 02/24/17 03:15; Start 02/23/17 at 18:00; Stop 09/01 at 17:59 Heparin Sodium (Heparin (Flush)) 200 units PICC IV Last administered on 05:10; Start 02/23/17 at 18:00; Stop 03/25/17 at 17:59 Home Med ASDIRECTED XX ; Start 02/23/17 at 17:45; Stop 02/23/17 at 17:45; Status DC Lidocaine (Lidoderm Patch) 1 patch DAILY TD Last administered on 02/24/17 08: 49; Start 02/24/17 at 09:00; Stop 03/26/17 at 08:59 Lisinopril (Prinivil) 5 mg DAILY PO Last administered on 02/24/17 08:50; Start 02/24/17 at 09:00; Stop 03/26/17 at 08:59 Nafcillin Sodium (Nafcil) 2 gm Q4H IV ; Start 02/23/17 at 15:45; Stop 02/23/17 at 17:47; Status DC Nafcillin Sodium/ Dextrose (Nafcil/Dextrose 5% Mini-Bag Plus) 100 ml @ 100 mls/ hr Q4H IV Last administered on 02/24/17 11:21; Start 02/23/17 at 19:00; Stop 03/02/17 at 18:59 Non-Formulary Medication ( See Comment Field Below ) REMOVE LIDODERM PATCH DAILY@21 XX Last administered on 02/23/17 21:00; Start 02/23/17 at 21:00; Stop 03/25/17 at 20:59 Oxycodone HCl (OxyCONTIN) 10 mg BID PO Last administered on 02/24/17 08:50; Start 02/23/17 at 21:00; Stop 03/02/17 at 20:59 Oxycodone HCl (Roxicodone, Oxyir) 5 mg Q6HP PRN PO PAIN; Start 02/23/17 at 16: 45; Stop 03/02/17 at 16:44 Rifampin (Rifadin) 300 mg BID PO Last administered on 02/24/17 08:49; Start at 21:00; Stop 03/02/17 at 20:59 Senna (Senokot) 1 tab BIDP PRN PO CONSTIPATION; Start 02/23/17 at 15:45; Stop 03/25/17 at 15:44 Sodium Chloride (Saline Lock Flush) 10 ml ASDIRECTED PRN IV SEE LABEL COMMENTS Last administered on 02/24/17 03:15; Start 02/23/17 at 18:00; Stop 03/25/17 at 17:59 Sodium Chloride (Saline Lock Flush) 10 ml PICC IV Last administered on 05:10; Start 02/23/17 at 18:00; Stop 03/25/17 at 17:59 Tamsulosin HCl (Flomax) 0.4 mg DAILY PO Last administered on 02/24/17 08:50; Start 02/24/17 at 09:00; Stop 02/24/17 at 10:26; Status DC Tamsulosin HCl (Flomax) 0.8 mg DAILY PO ; Start 02/25/17 at 09:00; Stop at 08:59 Tramadol HCl (Ultram) 50 mg Q6HP PRN PO MODERATE PAIN (PS 5-7) Last administered on 02/24/17 06:16; Start 02/23/17 at 15:45; Stop 03/02/17 at 15:44 Warfarin Sodium (Coumadin) 6 mg DAILY@17 PO ; Start 02/24/17 at 17:00; Stop at 16:59; Status Cancel LIANE NEWTON MD Feb 24, 2017 12:30
[2017-02-24] MEDS: oxyCODONE 5MG TAB PO PRN ×2 (13:08→19:08)
[2017-02-24 14:00] VITALS: BP 116/61
--- NOTE | 2017-02-24 14:34 | IPNPDOC ---
Subjective Date Seen The patient was seen on 02/24/17. Subjective Chief Complaint/HPI The patient is a 81-year-old male admitted with a reason for visit of Spinal Cord Compression At Cauda Equina. Events since last encounter Pt states back pain about the same. no other new complaints. Pulmonary: Denies: Cough, Dyspnea Cardiovascular: Denies: Chest Pain, Lt Headedness, Orthopnea, Palpitations, Paroxysmal Noc. Dyspnea Genitourinary: Denies: Dysuria, Frequency, Incontinence, Retention Objective Physical Examination General Exam: Positive: Alert Eye Exam: Positive: PERRLA ENT Exam: Positive: Atraumatic, Mucous membr. moist/pink, Pharynx Normal Chest Exam: Positive: Clear to auscultation, Normal air movement Heart Exam: Positive: Normal S1, Normal S2, Rate Normal, Regular Rhythm, Negative: Murmurs, Rubs Extremity Exam: Positive: Other (pt has back brace on currrently) Skin Exam: Positive: Nl turgor and temperature Assessment /Plan Problems (1) Diskitis Status: Acute Problem Text: * Dr Bobby following * IV Nafcillin/po Rifampin. 6-8 weeks * CBC/CRP/BMP weekly * Rehab as per ARU * Pain control (2) COPD (chronic obstructive pulmonary disease) Status: Chronic Problem Text: * Nebs * Albuterol prn (3) Paroxysmal atrial fibrillation Status: Chronic Problem Text: * PT/INR daily * Coumadin 2 mg today * Cardizem (4) Hypertension Status: Chronic Problem Text: * Lisinopril * po lasix. (5) LEIGH ANN (obstructive sleep apnea) Status: Chronic Problem Text: * O2 2 LNC Plan/VTE VTE Prophylaxis Ordered?: Yes (on Coumadin) Disposition as per ARU VS, I&O, 24H, [place] Vital Signs/I&O Vital Signs Date Time Temp Pulse Resp B/P Pulse Ox O2 Delivery O2 Flow Rate FiO2 02/24/17 13:08 16 02/24/17 09:00 Room Air 02/24/17 08:50 147/68 02/24/17 08:50 71 02/24/17 06:00 97.3 92 2.0 I&O- Last 24 Hours up to 6 AM 02/24/17 06:00 Intake Total 780 ml Output Total 700 ml Balance 80 ml Laboratory Data 24H LABS Laboratory Tests 2 02/24/17 05:18: Blood Urea Nitrogen 24H, Creatinine 1.14, Sodium Level 139, Potassium Level 3.9 , Chloride Level 101, Carbon Dioxide Level 29, Calcium Level 8.8, Aspartate Amino Transf (AST/SGOT) 10L, Alanine Aminotransferase (ALT/SGPT) < 6L, Alkaline Phosphatase 69, Total Bilirubin 1.0, Total Protein 6.2L, Albumin 1.7L, Albumin/ Globulin Ratio 0.38L, Anion Gap 9, Anisocytosis 1+, Band Neutrophils 1, White Blood Count 4.6, Red Blood Count 3.24L, Hemoglobin 9.4L, Hematocrit 29.2L, Mean Corpuscular Volume 90.0, Mean Corpuscular Hemoglobin 28.9, Mean Corpuscular Hemoglobin Concent 32.1, Red Cell Distribution Width 16.7H, Platelet Count 307, Neutrophils (%) (Auto) , Lymphocytes (%) (Auto) , Monocytes (%) (Auto) , Eosinophils (%) (Auto) , Basophils (%) (Auto) , Neutrophils # (Auto) , Lymphocytes # (Auto) , Monocytes # (Auto) , Eosinophils # (Auto) , Basophils # ( Auto) , Eosinophils (Manual) 4, Glomerular Filtration Rate > 60.0, Large Unclassified Cells # , Large Unclassified Cells % , Lymphocytes (Manual) 39, Monocytes (Manual) 4, Neutrophils 52, Platelet Estimate NORMAL, Prothromb Time International Ratio 2.77, Prothrombin Time 29.3H CBC/BMP Laboratory Tests 02/24/17 05:18 Calcium Level 8.8, Aspartate Amino Transf (AST/SGOT) 10 L, Alanine Aminotransferase (ALT/SGPT) < 6 L, Alkaline Phosphatase 69, Total Bilirubin 1.0 , Total Protein 6.2 L, Albumin 1.7 L, Red Blood Count 3.24 L, Mean Corpuscular Volume 90.0, Mean Corpuscular Hemoglobin 28.9, Mean Corpuscular Hemoglobin Concent 32.1, Red Cell Distribution Width 16.7 H, Neutrophils (%) (Auto) , Lymphocytes (%) (Auto) , Monocytes (%) (Auto) , Eosinophils (%) (Auto) , Basophils (%) (Auto) , Neutrophils # (Auto) , Lymphocytes # (Auto) , Monocytes # (Auto) , Eosinophils # (Auto) , Basophils # (Auto) Bushra Tripathi Feb 24, 2017 14:34
[2017-02-24] MEDS ORDERED: WARFARIN SOD 3 MG TAB PO SCH (17:00)
[2017-02-24] MEDS ORDERED: WARFARIN SOD 2 MG TAB PO ONE (17:00)
[2017-02-24 20:00] VITALS: BP 97/53
[2017-02-24 20:07] VITALS: BP 100/50
[2017-02-24] MEDS: **NOTE PATIENT COMMENT** MISC XX SCH (21:00)
[2017-02-24 22:00] VITALS: BP 140/78
[2017-02-25] MEDS: NAFCILLIN SOD 2 GM in D5W MINI-BAG PLUS 100 ML IV SCH ×6 (03:09→22:58)
[2017-02-25] MEDS: SODIUM CHLORIDE 0.9% INJ 10 ML SYR IV SCH ×2 (05:09→18:54)
[2017-02-25 05:30] LABS: INR 2.14
[2017-02-25] MEDS: oxyCODONE 5MG TAB PO PRN ×2 (05:55→14:44)
[2017-02-25 06:00] VITALS: BP 147/86
[2017-02-25] MEDS: SODIUM CHLORIDE 0.9% INJ 10 ML SYR IV PRN ×7 (06:45→20:05)
[2017-02-25] MEDS: ANORO ELLIPTA INH SCH (07:45)
[2017-02-25] MEDS: BREO ELLIPTA INH SCH (07:45)
[2017-02-25] MEDS: IPRATROPIUM 0.5MG/ALBUTEROL 2.5MG INH SOL UD 3ML (DUONEB)(J7620) NEB SCH ×4 (07:45→23:50)
[2017-02-25] MEDS: FINASTERIDE 5 MG TAB PO SCH (08:53)
[2017-02-25] MEDS: GABAPENTIN 400 MG CAP PO SCH (08:54)
[2017-02-25] MEDS: FUROSEMIDE 40 MG TAB PO SCH (08:54)
[2017-02-25] MEDS: TAMSULOSIN 0.4 MG CAP PO SCH (08:55)
[2017-02-25] MEDS: oxyCODONE 10 MG CR TAB PO SCH ×2 (08:56→21:32)
[2017-02-25] MEDS: LIDOCAINE 5% (LIDODERM) PATCH TD SCH (08:57)
[2017-02-25] MEDS: LISINOPRIL 5 MG TAB PO SCH (09:00)
--- NOTE | 2017-02-25 09:41 | IPNPDOC ---
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 Patient reports doing fairly well with little pain at rest about 3 out of 10 but pain still ranging up in the 8-10 out of 10 range depending on the timing of his oxycodone. Patient still requiring intermittent cath for urinary retention with postvoid residuals in the 400-800cc range. ALLERGIES: See Below MEDICATIONS: Reviewed, see below. OBJECTIVE: VITAL SIGNS: Please see below. PHYSICAL EXAMINATION: GENERAL: Pleasant elderly white male laying in bed in no acute distress. He is alert and oriented 4, speech is clear coherent and appropriate, affect is pleasant and cooperative. HEENT: Normocephalic/atraumatic. CARDIOVASCULAR: Regular rate and rhythm with normal S1-S2 without S3-S4 murmurs or rubs. 2 out 4 bilateral radial pulses. Good skin perfusion. LUNGS: All more clear to auscultation with good air movement and no wheezing today. ABDOMEN: Bowel sounds present in all quadrants. No abdominal tenderness. NEUROLOGICAL: Continued decreased lower extremity motor control and strength. SKIN: Intact. PICC line in right arm without inflammation, swelling, or other signs of irritation. LABORATORY DATA: Reviewed. Please see below. MICROBIOLOGY: Please see below. IMAGING: No new. DVT prophylaxis ordered?: Patient continues on Coumadin INR today is 2.14 after Coumadin 2 mg last night and 6 mg night before. ASSESSMENT AND PLAN: 1. Rehabilitation of cauda equina syndrome: Pain remains an obstacle advancing mobility and ADLs, so I will go ahead starting increase in gabapentin tonight to 600 mg every 8 hours from current 400 mg 3 times a day. This should give patient more consistent effects and greater strength. The OxyContin appears to be doing a good job keeping pain and reasonable level when patient has not active so I will not be changing it. Depending on the response to the gabapentin. Depending on the effects of the increased gabapentin the dosage and timing of the instant release oxycodone may be adjusted. 2. Atrial fibrillation/DVT prophylaxis: Reviewing the patient's last week of INRs and Coumadin dosage I believe 6 mg per day is too much so I will go ahead and start patient on 5 mg a day and track the effects. 3. Urinary retention/neurogenic bladder: Patient just starting with increase of Flomax to 0.8 mg per day without adverse effect to blood pressure but this time continued twice a day PVRs a day of 400s & 700s. If this is not improving in the next few days I will start patient on wearing self cath and will refer to urology at time of discharge to develop long-term management strategy. TIME SPENT: Chart Review, examination and documentation greater than 25 minutes. Allergies Coded Allergies: Morphine (Verified Adverse Reaction, Intermediate, confusion, 01/28/17) Vital Signs Vital Signs Date Time Temp Pulse Resp B/P Pulse Ox O2 Delivery O2 Flow Rate FiO2 02/25/17 09:04 Room Air 02/25/17 08:59 72 150/66 02/25/17 08:56 18 02/25/17 06:00 97.7 100 2.0 Laboratory Data Labs 24H Laboratory Tests 2 02/25/17 05:15: Prothromb Time International Ratio 2.14, Prothrombin Time 24.0H Current Medications Current Medications Current Medications Albuterol Sulfate (Proventil, Ventolin Hfa) 2 puff Q4HP PRN INH SHORTNESS OF BREATH Last administered on 02/23/17 21:37; Start 02/23/17 at 15:45; Stop 03/25 at 15:44 Albuterol/ Ipratropium (Duoneb (Ipr 0.5mg/Alb 2.5mg)) 3 ml RQ8H NEB ; Start 10/02 at 00:00; Stop 03/26/17 at 00:00 Budesonide (Pulmicort Flexhaler) 2 puff BID INH Last administered on 02/24/17 07:45; Start 02/23/17 at 21:00; Stop 02/24/17 at 12:09; Status DC Diltiazem HCl (Cardizem Cd) 120 mg DAILY PO Last administered on 02/25/17 08: 59; Start 02/24/17 at 09:00; Stop 03/26/17 at 08:59 Finasteride (Proscar) 5 mg DAILY PO Last administered on 02/25/17 08:53; Start 02/24/17 at 09:00; Stop 03/26/17 at 08:59 Furosemide (Lasix) 40 mg DAILY PO Last administered on 4/12/17at 08:54; Start 02/24/17 at 09:00; Stop 03/26/17 at 08:59 Gabapentin (Neurontin) 400 mg TID PO Last administered on 02/25/17 08:54; Start 02/23/17 at 21:00; Stop 02/26/17 at 20:59 Heparin Sodium (Heparin (Flush)) 200 units ASDIRECTED PRN IV SEE LABEL COMMENTS Last administered on 02/25/17 08:02; Start 02/23/17 at 18:00; Stop 09/01 at 17:59 Heparin Sodium (Heparin (Flush)) 200 units PICC IV Last administered on 05:09; Start 02/23/17 at 18:00; Stop 03/25/17 at 17:59 Home Med ASDIRECTED XX ; Start 02/23/17 at 17:45; Stop 02/23/17 at 17:45; Status DC Lidocaine (Lidoderm Patch) 1 patch DAILY TD Last administered on 02/25/17 08: 57; Start 02/24/17 at 09:00; Stop 03/26/17 at 08:59 Lisinopril (Prinivil) 5 mg DAILY PO Last administered on 02/25/17 09:00; Start 02/24/17 at 09:00; Stop 03/26/17 at 08:59 Nafcillin Sodium (Nafcil) 2 gm Q4H IV ; Start 02/23/17 at 15:45; Stop 02/23/17 at 17:47; Status DC Nafcillin Sodium/ Dextrose (Nafcil/Dextrose 5% Mini-Bag Plus) 100 ml @ 100 mls/ hr Q4H IV Last administered on 02/25/17 06:45; Start 02/23/17 at 19:00; Stop 03/02/17 at 18:59 Non-Formulary Medication ( See Comment Field Below ) REMOVE LIDODERM PATCH DAILY@21 XX Last administered on 02/24/17 21:00; Start 02/23/17 at 21:00; Stop 03/25/17 at 20:59 Oxycodone HCl (OxyCONTIN) 10 mg BID PO Last administered on 02/25/17 08:56; Start 02/23/17 at 21:00; Stop 03/02/17 at 20:59 Oxycodone HCl (Roxicodone, Oxyir) 5 mg Q6HP PRN PO PAIN Last administered on 05:55; Start 02/23/17 at 16:45; Stop 03/02/17 at 16:44 Patient Own Medication (Patient'S Own Med) Anoro Ellipta 62.5... DAILY INH Last administered on 02/25/17 07:45; Start 02/25/17 at 09:00; Stop 03/27/17 at 08:59 Patient Own Medication (Patient'S Own Med) Breo Ellipta 200MCG... DAILY INH Last administered on 02/25/17 07:45; Start 02/25/17 at 09:00; Stop 03/27/17 at 08:59 Rifampin (Rifadin) 300 mg BID PO Last administered on 02/25/17 08:54; Start at 21:00; Stop 03/02/17 at 20:59 Senna (Senokot) 1 tab BIDP PRN PO CONSTIPATION; Start 02/23/17 at 15:45; Stop 03/25/17 at 15:44 Sodium Chloride (Saline Lock Flush) 10 ml ASDIRECTED PRN IV SEE LABEL COMMENTS Last administered on 02/25/17 08:03; Start 02/23/17 at 18:00; Stop 03/25/17 at 17:59 Sodium Chloride (Saline Lock Flush) 10 ml PICC IV Last administered on 05:09; Start 02/23/17 at 18:00; Stop 03/25/17 at 17:59 Tamsulosin HCl (Flomax) 0.4 mg DAILY PO Last administered on 02/24/17 08:50; Start 02/24/17 at 09:00; Stop 02/24/17 at 10:26; Status DC Tamsulosin HCl (Flomax) 0.8 mg DAILY PO Last administered on 02/25/17 08:55; Start 02/25/17 at 09:00; Stop 03/27/17 at 08:59 Tramadol HCl (Ultram) 50 mg Q6HP PRN PO MODERATE PAIN (PS 5-7) Last administered on 02/24/17 17:41; Start 02/23/17 at 15:45; Stop 03/02/17 at 15:44 Warfarin Sodium (Coumadin) 5 mg DAILY@17 PO ; Start 02/25/17 at 17:00; Stop at 16:59 Warfarin Sodium (Coumadin) 6 mg DAILY@17 PO ; Start 02/24/17 at 17:00; Stop at 16:59; Status Cancel LIANE NEWTON MD Feb 25, 2017 09:41
[2017-02-25] MEDS: traMADol 50 MG TAB PO PRN (10:45)
[2017-02-25 14:00] VITALS: BP 123/70
--- NOTE | 2017-02-25 14:00 | IPNPDOC ---
Subjective Date Seen The patient was seen on 02/25/17. Subjective Chief Complaint/HPI The patient is a 81-year-old male admitted with a reason for visit of Spinal Cord Compression At Caud[facility] Equina. Events since last encounter pt states more pain today but RN states his Gabapentin was increased for pain control. ENT: Denies: Dysphagia, Ear Pain, Head Aches Pulmonary: Denies: Cough, Dyspnea Cardiovascular: Denies: Chest Pain, Lt Headedness, Orthopnea, Palpitations, Paroxysmal Noc. Dyspnea Genitourinary: Denies: Dysuria, Frequency, Incontinence, Retention Objective Physical Examination General Exam: Positive: Alert Eye Exam: Positive: PERRLA ENT Exam: Positive: Atraumatic, Mucous membr. moist/pink, Pharynx Normal Chest Exam: Positive: Clear to auscultation, Normal air movement Heart Exam: Positive: Normal S1, Normal S2, Rate Normal, Regular Rhythm, Negative: Murmurs, Rubs Extremity Exam: Positive: Other (pt has back brace on currrently) Skin Exam: Positive: Nl turgor and temperature Assessment /Plan Problems (1) Diskitis Status: Acute Problem Text: * Dr Bobby following * IV Nafcillin/po Rifampin. 6-8 weeks * CBC/CRP/BMP weekly * Rehab as per ARU * Pain control (2) COPD (chronic obstructive pulmonary disease) Status: Chronic Problem Text: * Nebs * Albuterol prn (3) Paroxysmal atrial fibrillation Status: Chronic Problem Text: * PT/INR daily * Coumadin 5 mg daily * Cardizem (4) Hypertension Status: Chronic Problem Text: * Lisinopril * po lasix. (5) LEIGH ANN (obstructive sleep apnea) Status: Chronic Problem Text: * O2 2 LNC Plan/VTE VTE Prophylaxis Ordered?: Yes (on Coumadin) VS, I&O, 24H, Fishbone Vital Signs/I&O Vital Signs Date Time Temp Pulse Resp B/P Pulse Ox O2 Delivery O2 Flow Rate FiO2 02/25/17 11:15 18 02/25/17 09:04 Room Air 02/25/17 08:59 72 150/66 02/25/17 06:00 97.7 100 2.0 I&O- Last 24 Hours up to 6 AM 02/25/17 05:59 Intake Total 1160 ml Output Total 1700 ml Balance -540 ml Laboratory Data 24H LABS Laboratory Tests 2 02/25/17 05:15: Prothromb Time International Ratio 2.14, Prothrombin Time 24.0H Bushra Tripathi Feb 25, 2017 13:59
[2017-02-25] MEDS ORDERED: GABAPENTIN 400 MG CAP PO SCH (16:00)
[2017-02-25] MEDS: WARFARIN SOD 5 MG TAB PO SCH (16:04)
[2017-02-25 20:00] VITALS: BP 141/70
[2017-02-25] MEDS: **NOTE PATIENT COMMENT** MISC XX SCH (21:32)
[2017-02-25] MEDS: GABAPENTIN 300 MG CAP PO SCH (21:33)
[2017-02-26] MEDS: SODIUM CHLORIDE 0.9% INJ 10 ML SYR IV PRN ×6 (00:08→23:41)
[2017-02-26] MEDS: NAFCILLIN SOD 2 GM in D5W MINI-BAG PLUS 100 ML IV SCH ×6 (03:21→23:40)
[2017-02-26 06:00] VITALS: BP 135/68
[2017-02-26] MEDS: GABAPENTIN 300 MG CAP PO SCH ×3 (06:01→20:48)
[2017-02-26 07:25] LABS: INR 1.6
[2017-02-26] MEDS: ANORO ELLIPTA INH SCH (07:45)
[2017-02-26] MEDS: IPRATROPIUM 0.5MG/ALBUTEROL 2.5MG INH SOL UD 3ML (DUONEB)(J7620) NEB SCH ×2 (07:45→15:17)
[2017-02-26] MEDS: SODIUM CHLORIDE 0.9% INJ 10 ML SYR IV SCH ×2 (08:47→14:56)
[2017-02-26] MEDS: LIDOCAINE 5% (LIDODERM) PATCH TD SCH (08:48)
[2017-02-26] MEDS: TAMSULOSIN 0.4 MG CAP PO SCH (08:51)
[2017-02-26] MEDS: FINASTERIDE 5 MG TAB PO SCH (08:52)
[2017-02-26] MEDS: oxyCODONE 10 MG CR TAB PO SCH ×2 (08:52→20:48)
[2017-02-26] MEDS: LISINOPRIL 5 MG TAB PO SCH (08:53)
[2017-02-26] MEDS: FUROSEMIDE 40 MG TAB PO SCH (08:53)
[2017-02-26] MEDS: BREO ELLIPTA INH SCH (09:00)
[2017-02-26] MEDS: oxyCODONE 5MG TAB PO PRN (12:18)
--- NOTE | 2017-02-26 12:41 | IPNPDOC ---
Subjective Date Seen The patient was seen on 02/26/17. Subjective Chief Complaint/HPI The patient is a 81-year-old male admitted with a reason for visit of Spinal Cord Compression At Cauda Equina. Events since last encounter Pt states he is feeling better today. Pt is wearing brace. Overall pain is improved today. States he is eating and drinking. No complaints at this time. Pulmonary: Denies: Cough, Dyspnea Cardiovascular: Denies: Chest Pain, Lt Headedness, Orthopnea, Palpitations, Paroxysmal Noc. Dyspnea Objective Physical Examination General Exam: Positive: Alert Eye Exam: Positive: PERRLA ENT Exam: Positive: Atraumatic, Mucous membr. moist/pink, Pharynx Normal Chest Exam: Positive: Clear to auscultation, Normal air movement Heart Exam: Positive: Normal S1, Normal S2, Rate Normal, Regular Rhythm, Negative: Murmurs, Rubs Extremity Exam: Positive: Other (pt has back brace on currrently) Skin Exam: Positive: Nl turgor and temperature Assessment /Plan Problems (1) Diskitis Status: Acute Problem Text: * Dr Bobby following * IV Nafcillin/po Rifampin. 6-8 weeks as per ID recommendations. * CBC/CRP/BMP weekly * Rehab as per ARU * Pain control (2) COPD (chronic obstructive pulmonary disease) Status: Chronic Problem Text: * Nebs * Albuterol prn (3) Paroxysmal atrial fibrillation Status: Chronic Problem Text: * PT/INR daily * Coumadin 6 mg po x 1 today * INR in AM and re asses dosing. * Cardizem (4) Hypertension Status: Chronic Problem Text: * Lisinopril * po lasix. (5) LEIGH ANN (obstructive sleep apnea) Status: Chronic Problem Text: * O2 2 LNC Plan/VTE VTE Prophylaxis Ordered?: Yes (on Coumadin) VS, I&O, 24H, Fishbone Vital Signs/I&O Vital Signs Date Time Temp Pulse Resp B/P Pulse Ox O2 Delivery O2 Flow Rate FiO2 02/26/17 12:18 18 02/26/17 09:51 Room Air 02/26/17 08:53 102/64 02/26/17 08:53 82 02/26/17 06:00 98.1 97 2.0 I&O- Last 24 Hours up to 6 AM 02/26/17 06:00 Intake Total 1100 ml Output Total 2400 ml Balance -1300 ml Laboratory Data 24H LABS Laboratory Tests 2 02/26/17 06:54: Prothromb Time International Ratio 1.60, Prothrombin Time 19.1H Bushra Tripathi Feb 26, 2017 12:41
[2017-02-26] MEDS: traMADol 50 MG TAB PO SCH ×3 (13:24→20:50)
[2017-02-26 15:09] VITALS: BP 97/60
[2017-02-26] MEDS: traMADol 50 MG TAB PO PRN (15:27)
[2017-02-26] MEDS ORDERED: WARFARIN SOD 1 MG TAB PO ONE (17:00)
--- NOTE | 2017-02-26 17:30 | IPNPDOC ---
Detail Manager Progress Note DATE OF SERVICE: 02/26/2017 DATE OF ADMISSION: Feb 23, 2017 at 17:00 INPATIENT REHABILITATION ADMISSION DAY: #3 SUBJECTIVE: Patient is a 81-year-old white male with cauda equina syndrome secondary to abscess with L1-L2 osteomyelitis. Patient notes that his pain is getting significantly better most of the time and even during therapy is having less no fever chills and no problems with his IV antibiotics. ALLERGIES: See Below MEDICATIONS: Reviewed, see below. OBJECTIVE: VITAL SIGNS: Please see below. PHYSICAL EXAMINATION: GENERAL: Well-nourished well-developed elderly white male using a clamshell TLSO when up it tends to like to stay laying down. Patient appears to be more more comfortable day by day with less muscle skeletal distress. HEENT: Normocephalic atraumatic. CARDIOVASCULAR: Regular rate and rhythm with normal S1 and S2. 2 out 4 radial pulses bilaterally LUNGS: Lungs clear in all more saw auscultation no wheezing since starting his Breo and Anoro Ellipta. ABDOMEN: Flat bowel sounds present in all quadrants nontender. NEUROLOGICAL: Alert and well oriented speech is clear coherent and appropriate, still notable decrease in motor control and strength in the lower extremities. SKIN: Intact LABORATORY DATA: Reviewed. Please see below. MICROBIOLOGY: Please see below. IMAGING: No new DVT prophylaxis ordered?: Coumadin with INR dropping to 1.6 today but hopefully will see rise with continued 5 mg nightly into the therapeutic range of 2.0-3.0 ASSESSMENT AND PLAN: 1. Rehabilitation cauda equina: Patient making progress with therapies though he tends to like to stay down in bed and in between. We need to try and increase more activity and more time up it patient more used to this sitting and thereby comfortable in sitting which will improve his function at home and in his ADLs. ELOS 9 days. 2. Urinary retention: Still has significant volumes though slightly less since increasing Flomax will began having nursing teach patient intermittent catheterization. 3. Pain management: Increasing the tramadol and will be increasing the gabapentin looking to diminish use of opiates. FIM: # Initials Goal Date=> [id number] EW 02/23/2017 02/26/2017 Self-Care Eating 7 5 6 [place] 7 5 5 Bath 6 3 4 Dress U 6 1 4 Dress L 6 1 2 Toilet 6 3 1 Spincther Bladder 6 5 6 Bowel 6 5 6 Transfers B/C/Wc 6 3 4 Toilet 6 3 Shower 6 0 0 Locomot. W/WC 6 2 4 Stairs 6 0 0 Compre 6 5 Express 6 5 6 Social Int. 6 5 6 Prob. Verenice. 6 5 6 Memory 6 5 6 Total 110 61 66 TIME SPENT: Chart Review, examination and documentation including team conference greater than 35 minutes. Allergies Coded Allergies: Morphine (Verified Adverse Reaction, Intermediate, confusion, 01/28/17) Vital Signs Vital Signs Date Time Temp Pulse Resp B/P Pulse Ox O2 Delivery O2 Flow Rate FiO2 02/26/17 16:20 18 02/26/17 15:09 98.5 85 97/60 90 Room Air 02/26/17 06:00 2.0 Laboratory Data Labs 24H Laboratory Tests 2 02/26/17 06:54: Prothromb Time International Ratio 1.60, Prothrombin Time 19.1H Current Medications Current Medications Current Medications Albuterol Sulfate (Proventil, Ventolin Hfa) 2 puff Q4HP PRN INH SHORTNESS OF BREATH Last administered on 02/23/17 21:37; Start 02/23/17 at 15:45; Stop 03/25 at 15:44 Albuterol/ Ipratropium (Duoneb (Ipr 0.5mg/Alb 2.5mg)) 3 ml RQ8H NEB Last administered on 02/26/17 15:17; Start 02/24/17 at 00:00; Stop 03/26/17 at 00:00 Budesonide (Pulmicort Flexhaler) 2 puff BID INH Last administered on 02/24/17 07:45; Start 02/23/17 at 21:00; Stop 02/24/17 at 12:09; Status DC Diltiazem HCl (Cardizem Cd) 120 mg DAILY PO Last administered on 02/26/17 08: 53; Start 02/24/17 at 09:00; Stop 03/26/17 at 08:59 Finasteride (Proscar) 5 mg DAILY PO Last administered on 02/26/17 08:52; Start 02/24/17 at 09:00; Stop 03/26/17 at 08:59 Furosemide (Lasix) 40 mg DAILY PO Last administered on 02/26/17 08:53; Start 02/24/17 at 09:00; Stop 03/26/17 at 08:59 Gabapentin (Neurontin) 400 mg TID PO Last administered on 02/25/17 08:54; Start 02/23/17 at 21:00; Stop 02/25/17 at 09:27; Status DC Gabapentin (Neurontin) 400 mg TID PO Last administered on 02/25/17 16:04; Start 02/25/17 at 16:00; Stop 02/25/17 at 17:00; Status DC Gabapentin (Neurontin) 600 mg Q8H PO Last administered on 02/26/17 14:55; Start 02/25/17 at 22:00; Stop 03/09/17 at 21:59 Heparin Sodium (Heparin (Flush)) 200 units ASDIRECTED PRN IV SEE LABEL COMMENTS Last administered on 02/26/17 12:11; Start 02/23/17 at 18:00; Stop 09/01 at 17:59 Heparin Sodium (Heparin (Flush)) 200 units PICC IV Last administered on 08:47; Start 02/23/17 at 18:00; Stop 03/25/17 at 17:59 Home Med ASDIRECTED XX ; Start 02/23/17 at 17:45; Stop 02/23/17 at 17:45; Status DC Lidocaine (Lidoderm Patch) 1 patch DAILY TD Last administered on 02/26/17 08: 48; Start 02/24/17 at 09:00; Stop 03/26/17 at 08:59 Lisinopril (Prinivil) 5 mg DAILY PO Last administered on 02/26/17 08:53; Start 02/24/17 at 09:00; Stop 03/26/17 at 08:59 Nafcillin Sodium (Nafcil) 2 gm Q4H IV ; Start 02/23/17 at 15:45; Stop 02/23/17 at 17:47; Status DC Nafcillin Sodium/ Dextrose (Nafcil/Dextrose 5% Mini-Bag Plus) 100 ml @ 100 mls/ hr Q4H IV Last administered on 02/26/17 14:56; Start 02/23/17 at 19:00; Stop 03/02/17 at 18:59 Non-Formulary Medication ( See Comment Field Below ) REMOVE LIDODERM PATCH DAILY@21 XX Last administered on 02/25/17 21:32; Start 02/23/17 at 21:00; Stop 03/25/17 at 20:59 Oxycodone HCl (OxyCONTIN) 10 mg BID PO Last administered on 02/26/17 08:52; Start 02/23/17 at 21:00; Stop 03/02/17 at 20:59 Oxycodone HCl (Roxicodone, Oxyir) 5 mg Q6HP PRN PO PAIN Last administered on 12:18; Start 02/23/17 at 16:45; Stop 03/02/17 at 16:44 Patient Own Medication (Patient'S Own Med) Anoro Ellipta 62.5... DAILY INH Last administered on 02/26/17 07:45; Start 02/25/17 at 09:00; Stop 03/27/17 at 08:59 Patient Own Medication (Patient'S Own Med) Breo Ellipta 200MCG... DAILY INH Last administered on 02/26/17 09:00; Start 02/25/17 at 09:00; Stop 03/27/17 at 08:59 Rifampin (Rifadin) 300 mg BID PO Last administered on 02/26/17 08:52; Start at 21:00; Stop 03/02/17 at 20:59 Senna (Senokot) 1 tab BIDP PRN PO CONSTIPATION; Start 02/23/17 at 15:45; Stop 03/25/17 at 15:44 Sodium Chloride (Saline Lock Flush) 10 ml ASDIRECTED PRN IV SEE LABEL COMMENTS Last administered on 02/26/17 12:11; Start 02/23/17 at 18:00; Stop 03/25/17 at 17:59 Sodium Chloride (Saline Lock Flush) 10 ml PICC IV Last administered on 14:56; Start 02/23/17 at 18:00; Stop 03/25/17 at 17:59 Tamsulosin HCl (Flomax) 0.4 mg DAILY PO Last administered on 02/24/17 08:50; Start 02/24/17 at 09:00; Stop 02/24/17 at 10:26; Status DC Tamsulosin HCl (Flomax) 0.8 mg DAILY PO Last administered on 02/26/17 08:51; Start 02/25/17 at 09:00; Stop 03/27/17 at 08:59 Tramadol HCl (Ultram) 50 mg Q6HP PRN PO MODERATE PAIN (PS 5-7) Last administered on 02/26/17 15:27; Start 02/23/17 at 15:45; Stop 03/02/17 at 15:44 Tramadol HCl (Ultram) 50 mg QID PO Last administered on 02/26/17 13:24; Start 02/26/17 at 13:00; Stop 03/05/17 at 12:59 Warfarin Sodium (Coumadin) 5 mg DAILY@17 PO Last administered on 02/25/17 16: 04; Start 02/25/17 at 17:00; Stop 03/04/17 at 16:59 Warfarin Sodium (Coumadin) 6 mg DAILY@17 PO ; Start 02/24/17 at 17:00; Stop at 16:59; Status Cancel LIANE NEWTON MD Feb 26, 2017 17:30
[2017-02-26] MEDS: WARFARIN SOD 5 MG TAB PO SCH (17:54)
--- NOTE | 2017-02-26 19:34 | IPN ---
DATE: 02/26/2017 Mr. Harvey is doing very well. He is ambulating about 250 feet. He feels exhausted after 3 days of physical therapy and occupational therapy (OT) and complains of some back pain but has done well. He has a new back brace. He is anxious to go home. No new labs were done today. The patient continues on IV nafcillin 2 grams every 4 hours and rifampin 300 mg by mouth twice a day. On physical exam, mild lumbosacral tenderness. Heart: Normal S1, S2, no murmurs. Lungs are clear. Abdomen is soft, nontender. Extremities no edema. 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 Doing much better with IV nafcillin and rifampin. PLAN: Continue nafcillin and rifampin for a total of 6-8 weeks. If the patient is discharged home by the end of this week, he will need to followup in Dr. Bobby's office in 2-3 weeks. Monitor complete blood count (CBC), comprehensive profile, C-reactive protein (CRP) and erythrocyte sedimentation rate (ESR) weekly.
[2017-02-26 20:00] VITALS: BP 133/73
[2017-02-26] MEDS: **NOTE PATIENT COMMENT** MISC XX SCH (20:50)
[2017-02-27] MEDS: NAFCILLIN SOD 2 GM in D5W MINI-BAG PLUS 100 ML IV SCH ×6 (03:21→22:46)
[2017-02-27] MEDS: SODIUM CHLORIDE 0.9% INJ 10 ML SYR IV PRN ×5 (03:22→22:51)
[2017-02-27 05:24] VITALS: BP 107/54
[2017-02-27] MEDS: GABAPENTIN 300 MG CAP PO SCH ×3 (05:34→22:45)
[2017-02-27 07:05] LABS: MEAN CORPUSCULAR HEMOGLOBIN 29.2 pg (27.0-33.0); MEAN CORPUSCULAR HGB CONC 32.2 g/dl (32.0-36.5); MEAN CORPUSCULAR VOLUME 90.7 fl (80.0-96.0); RED CELL DISTRIBUTION WIDTH 17.1 % (11.5-14.5)
[2017-02-27 07:23] LABS: CALCIUM LEVEL 9.4 MG/DL (8.8-10.2); CREATININE FOR GFR 1.38 MG/DL (0.70-1.30); GLOMERULAR FILTRATION RATE 52.6 (>35); POTASSIUM SERUM 3.8 MEQ/L (3.5-5.1)
[2017-02-27] MEDS: ANORO ELLIPTA INH SCH (07:24)
[2017-02-27] MEDS: IPRATROPIUM 0.5MG/ALBUTEROL 2.5MG INH SOL UD 3ML (DUONEB)(J7620) NEB SCH ×2 (07:24→15:24)
[2017-02-27] MEDS: BREO ELLIPTA INH SCH (07:27)
[2017-02-27] MEDS: SODIUM CHLORIDE 0.9% INJ 10 ML SYR IV SCH ×2 (07:43→18:39)
[2017-02-27] MEDS: FUROSEMIDE 40 MG TAB PO SCH (09:00)
[2017-02-27] MEDS: LISINOPRIL 5 MG TAB PO SCH (09:25)
[2017-02-27] MEDS: TAMSULOSIN 0.4 MG CAP PO SCH (09:25)
[2017-02-27] MEDS: FINASTERIDE 5 MG TAB PO SCH (09:25)
[2017-02-27] MEDS: LIDOCAINE 5% (LIDODERM) PATCH TD SCH (09:26)
[2017-02-27] MEDS: oxyCODONE 10 MG CR TAB PO SCH ×2 (09:26→20:49)
[2017-02-27] MEDS: traMADol 50 MG TAB PO SCH ×4 (09:26→20:50)
[2017-02-27 10:47] LABS: INR 1.78
--- NOTE | 2017-02-27 10:55 | IPNPDOC ---
Combination Building Inspector Progress Note DATE OF SERVICE: 02/27/2017 DATE OF ADMISSION: Feb 23, 2017 at 17:00 INPATIENT REHABILITATION ADMISSION DAY: #4 SUBJECTIVE: Patient is a 81-year-old white male with out of equinus syndrome secondary to abscess from osteomyelitis and discitis at L1-L2. Patient noting continued improvement in his pain control. He has new brace more of a modified Alejandro replacing his clamshell. It will be important to see how patient does morning how to don this device. Otherwise no complaints. ALLERGIES: See Below MEDICATIONS: Reviewed, see below. OBJECTIVE: VITAL SIGNS: Please see below. PHYSICAL EXAMINATION: GENERAL: Well-nourished well-developed elderly white male laying in bed with new TLSO on and minimal to no acute distress. Patient is alert and well oriented speech is clear coherent and appropriate affect pleasant and cooperative. HEENT: Normocephalic/atraumatic. CARDIOVASCULAR: Regular rate and rhythm with normal S1 and S2 without S3-S4 murmurs or rubs. 2 out 4 bilateral radial pulses LUNGS: All more clear to auscultation. ABDOMEN: Flat, benign, nontender with normal bowel sounds in all quadrants. NEUROLOGICAL: As above. Motor not tested. SKIN: Intact LABORATORY DATA: Reviewed. Please see below. MICROBIOLOGY: Please see below. IMAGING: No new DVT prophylaxis ordered?: Coumadin, INR for today pending. ASSESSMENT AND PLAN: 1. Rehabilitation of cauda equina syndrome: Patient making progress in physical occupational therapy. 2. Neurogenic bladder: Patient still requiring intermittent catheterization for retention. Nursing to teach patient and family do intermittent catheterization. 3. Arachnoiditis: Gabapentin seems to be helping patient's overall level of pain. As patient reaches the end of his stay need to transition away from opiate management of pain. TIME SPENT: Chart Review, examination and documentation greater than 20 minutes. Allergies Coded Allergies: Morphine (Verified Adverse Reaction, Intermediate, confusion, 01/28/17) Vital Signs Vital Signs Date Time Temp Pulse Resp B/P Pulse Ox O2 Delivery O2 Flow Rate FiO2 02/27/17 09:26 20 02/27/17 09:26 Room Air 02/27/17 09:25 107/54 02/27/17 09:24 75 02/27/17 05:24 97.3 93 2.0 Laboratory Data CBC/BMP Laboratory Tests 02/27/17 06:37 Calcium Level 9.4, Red Blood Count 3.24 L, Mean Corpuscular Volume 90.7, Mean Corpuscular Hemoglobin 29.2, Mean Corpuscular Hemoglobin Concent 32.2, Red Cell Distribution Width 17.1 H Labs 24H Laboratory Tests 2 02/27/17 06:37: Anion Gap 8, Blood Urea Nitrogen 25H, Creatinine 1.38H, Sodium Level 139, Potassium Level 3.8, Chloride Level 100, Carbon Dioxide Level 31, Calcium Level 9.4, Glomerular Filtration Rate 52.6 02/27/17 10:08: Current Medications Current Medications Current Medications Albuterol Sulfate (Proventil, Ventolin Hfa) 2 puff Q4HP PRN INH SHORTNESS OF BREATH Last administered on 02/23/17 21:37; Start 02/23/17 at 15:45; Stop 03/25 at 15:44 Albuterol/ Ipratropium (Duoneb (Ipr 0.5mg/Alb 2.5mg)) 3 ml RQ8H NEB Last administered on 02/27/17 07:24; Start 02/24/17 at 00:00; Stop 03/26/17 at 00:00 Budesonide (Pulmicort Flexhaler) 2 puff BID INH Last administered on 02/24/17 07:45; Start 02/23/17 at 21:00; Stop 02/24/17 at 12:09; Status DC Diltiazem HCl (Cardizem Cd) 120 mg DAILY PO Last administered on 02/27/17 09: 24; Start 02/24/17 at 09:00; Stop 03/26/17 at 08:59 Finasteride (Proscar) 5 mg DAILY PO Last administered on 02/27/17 09:25; Start 02/24/17 at 09:00; Stop 03/26/17 at 08:59 Furosemide (Lasix) 40 mg DAILY PO Last administered on 02/26/17 08:53; Start 02/24/17 at 09:00; Stop 03/26/17 at 08:59 Gabapentin (Neurontin) 400 mg TID PO Last administered on 02/25/17 08:54; Start 02/23/17 at 21:00; Stop 02/25/17 at 09:27; Status DC Gabapentin (Neurontin) 400 mg TID PO Last administered on 02/25/17 16:04; Start 02/25/17 at 16:00; Stop 02/25/17 at 17:00; Status DC Gabapentin (Neurontin) 600 mg Q8H PO Last administered on 02/27/17 05:34; Start 02/25/17 at 22:00; Stop 03/09/17 at 21:59 Heparin Sodium (Heparin (Flush)) 200 units ASDIRECTED PRN IV SEE LABEL COMMENTS Last administered on 02/27/17 04:30; Start 02/23/17 at 18:00; Stop 09/01 at 17:59 Heparin Sodium (Heparin (Flush)) 200 units PICC IV Last administered on 07:43; Start 02/23/17 at 18:00; Stop 03/25/17 at 17:59 Home Med ASDIRECTED XX ; Start 02/23/17 at 17:45; Stop 02/23/17 at 17:45; Status DC Lidocaine (Lidoderm Patch) 1 patch DAILY TD Last administered on 02/27/17 09: 26; Start 02/24/17 at 09:00; Stop 03/26/17 at 08:59 Lisinopril (Prinivil) 5 mg DAILY PO Last administered on 02/27/17 09:25; Start 02/24/17 at 09:00; Stop 03/26/17 at 08:59 Nafcillin Sodium (Nafcil) 2 gm Q4H IV ; Start 02/23/17 at 15:45; Stop 02/23/17 at 17:47; Status DC Nafcillin Sodium/ Dextrose (Nafcil/Dextrose 5% Mini-Bag Plus) 100 ml @ 100 mls/ hr Q4H IV Last administered on 02/27/17 06:42; Start 02/23/17 at 19:00; Stop 03/02/17 at 18:59 Non-Formulary Medication ( See Comment Field Below ) REMOVE LIDODERM PATCH DAILY@21 XX Last administered on 02/26/17 20:50; Start 02/23/17 at 21:00; Stop 03/25/17 at 20:59 Oxycodone HCl (OxyCONTIN) 10 mg BID PO Last administered on 02/27/17 09:26; Start 02/23/17 at 21:00; Stop 03/02/17 at 20:59 Oxycodone HCl (Roxicodone, Oxyir) 5 mg Q6HP PRN PO PAIN Last administered on 12:18; Start 02/23/17 at 16:45; Stop 03/02/17 at 16:44 Patient Own Medication (Patient'S Own Med) Anoro Ellipta 62.5... DAILY INH Last administered on 02/27/17 07:24; Start 02/25/17 at 09:00; Stop 03/27/17 at 08:59 Patient Own Medication (Patient'S Own Med) Breo Ellipta 200MCG... DAILY INH Last administered on 02/27/17 07:27; Start 02/25/17 at 09:00; Stop 03/27/17 at 08:59 Rifampin (Rifadin) 300 mg BID PO Last administered on 02/27/17 09:24; Start at 21:00; Stop 03/02/17 at 20:59 Senna (Senokot) 1 tab BIDP PRN PO CONSTIPATION; Start 02/23/17 at 15:45; Stop 03/25/17 at 15:44 Sodium Chloride (Saline Lock Flush) 10 ml ASDIRECTED PRN IV SEE LABEL COMMENTS Last administered on 02/27/17 04:30; Start 02/23/17 at 18:00; Stop 03/25/17 at 17:59 Sodium Chloride (Saline Lock Flush) 10 ml PICC IV Last administered on 07:43; Start 02/23/17 at 18:00; Stop 03/25/17 at 17:59 Tamsulosin HCl (Flomax) 0.4 mg DAILY PO Last administered on 02/24/17 08:50; Start 02/24/17 at 09:00; Stop 02/24/17 at 10:26; Status DC Tamsulosin HCl (Flomax) 0.8 mg DAILY PO Last administered on 02/27/17 09:25; Start 02/25/17 at 09:00; Stop 03/27/17 at 08:59 Tramadol HCl (Ultram) 50 mg Q6HP PRN PO MODERATE PAIN (PS 5-7) Last administered on 02/26/17 15:27; Start 02/23/17 at 15:45; Stop 03/02/17 at 15:44 Tramadol HCl (Ultram) 50 mg QID PO Last administered on 02/27/17t 09:26; Start 02/26/17 at 13:00; Stop 03/05/17 at 12:59 Warfarin Sodium (Coumadin) 5 mg DAILY@17 PO Last administered on 02/26/17t 17: 54; Start 02/25/17 at 17:00; Stop 03/04/17 at 16:59 Warfarin Sodium (Coumadin) 6 mg DAILY@17 PO ; Start 02/24/17 at 17:00; Stop at 16:59; Status Cancel LIANE NEWTON MD Feb 27, 2017 10:53
--- NOTE | 2017-02-27 11:41 | IPNPDOC ---
Subjective Date Seen The patient was seen on 02/27/17. Subjective Chief Complaint/HPI The patient is a 81-year-old male admitted with a reason for visit of Spinal Cord Compression At Cauda Equina. Events since last encounter Pt states his pain is controlled. He is OOB and to chair with PT. He states breathing/respiratory status stable. No CP. No Abdominal pain. Pt has no c/o. ENT: Denies: Dysphagia, Ear Pain, Head Aches Pulmonary: Denies: Cough, Dyspnea Cardiovascular: Denies: Chest Pain, Lt Headedness, Orthopnea, Palpitations, Paroxysmal Noc. Dyspnea Objective Physical Examination General Exam: Positive: Alert Eye Exam: Positive: PERRLA ENT Exam: Positive: Atraumatic, Mucous membr. moist/pink, Pharynx Normal Chest Exam: Positive: Clear to auscultation, Normal air movement Heart Exam: Positive: Normal S1, Normal S2, Rate Normal, Regular Rhythm, Negative: Murmurs, Rubs Extremity Exam: Positive: Other (pt has back brace on currrently) Skin Exam: Positive: Nl turgor and temperature Assessment /Plan Problems (1) Diskitis Status: Acute Problem Text: * Dr Bobby following * IV Nafcillin/po Rifampin. 6-8 weeks as per ID recommendations. * CBC/CRP/BMP weekly * Rehab as per ARU * Pain control (2) COPD (chronic obstructive pulmonary disease) Status: Chronic Problem Text: * Cont with Nebs * Albuterol prn (3) Paroxysmal atrial fibrillation Status: Chronic Problem Text: * PT/INR daily * Coumadin 6 mg daily * INR daily. Monitor dosing. * Cardizem (4) Hypertension Status: Chronic Problem Text: * Lisinopril * po lasix. * Monitor BMP. (5) LEIGH ANN (obstructive sleep apnea) Status: Chronic Problem Text: * O2 2 LNC (6) Urinary retention Status: Chronic Problem Text: * Flomax * Proscar * Intermittent Cath Plan/VTE VTE Prophylaxis Ordered?: Yes (on Coumadin) VS, I&O, 24H, Fishbone Vital Signs/I&O Vital Signs Date Time Temp Pulse Resp B/P Pulse Ox O2 Delivery O2 Flow Rate FiO2 02/27/17 09:26 20 02/27/17 09:26 Room Air 02/27/17 09:25 107/54 02/27/17 09:24 75 02/27/17 05:24 97.3 93 2.0 I&O- Last 24 Hours up to 6 AM 02/27/17 06:00 Intake Total 1560 ml Output Total 1850 ml Balance -290 ml Laboratory Data 24H LABS Laboratory Tests 2 02/27/17 06:37: Anion Gap 8, Blood Urea Nitrogen 25H, Creatinine 1.38H, Sodium Level 139, Potassium Level 3.8, Chloride Level 100, Carbon Dioxide Level 31, Calcium Level 9.4, Glomerular Filtration Rate 52.6 02/27/17 10:08: Prothromb Time International Ratio 1.78, Prothrombin Time 20.8H CBC/BMP Laboratory Tests 02/27/17 06:37 Calcium Level 9.4, Red Blood Count 3.24 L, Mean Corpuscular Volume 90.7, Mean Corpuscular Hemoglobin 29.2, Mean Corpuscular Hemoglobin Concent 32.2, Red Cell Distribution Width 17.1 H Bushra Tripathi Feb 27, 2017 11:41
[2017-02-27 12:34] LABS: MEAN CORPUSCULAR HEMOGLOBIN 28.5 pg (27.0-33.0); MEAN CORPUSCULAR HGB CONC 31.1 g/dl (32.0-36.5); MEAN CORPUSCULAR VOLUME 91.7 fl (80.0-96.0); RED CELL DISTRIBUTION WIDTH 17.3 % (11.5-14.5); WHITE BLOOD COUNT 6.1 K/mm3 (4.0-10.0)
[2017-02-27 14:00] VITALS: BP 97/56
[2017-02-27] MEDS ORDERED: WARFARIN SOD 3 MG TAB PO SCH (17:00)
--- NOTE | 2017-02-27 17:18 | IPN ---
DATE: 02/27/2017 SUBJECTIVE: Mr. Harvey is doing well. He has walked twice with physical therapy 160 feet on two different occasions. He still complains of significant back pain. He is also having urinary retention and had to be straight catheterized once yesterday and once today. LABORATORY DATA White count is 6, hemoglobin 9.4, hematocrit 29.4, platelets 334. Sodium 139, potassium 3.8, chloride 100, bicarb 31, BUN 25, creatinine 1.38, glucose 97, calcium 9.4. PHYSICAL EXAMINATION: VITAL SIGNS: On physical exam, temperature is 97.3, pulse 75, respirations 18, blood pressure 107/54, Oxygen saturation 93% on room air. HEART: Normal S1, S2 distant. No murmurs. LUNGS: Lungs have few expiratory wheezes bilaterally. Good air entry. ABDOMEN: Soft, nontender. EXTREMITIES: No edema. BACK: Lumbosacral tenderness mostly around L4-L5. MEDICATIONS: - tramadol 50 mg four times a day - gabapentin 600 mg by mouth every eight hours - oxycodone 5 mg by mouth ever six hours as needed - intravenous (IV) antibiotic nafcillin 2 grams every four hours and - rifampin 300 mg by mouth twice a day - Patient is also on Flomax 0.8 mg by mouth daily and - Proscar 5 mg daily for benign prostatic hypertrophy (BPH). IMPRESSION 1. Discitis, failed eight weeks of IV cefazolin. Currently on nafcillin and rifampin doing much better. The patient has increased ambulation. Back pain is better controlled. 2. Urinary retention and benign prostatic hypertrophy on maximum dose of Proscar and Flomax. The patient probably is having of medication side effect with urinary retention. PLAN The patient's anticipated discharge date is next week on 03/04. His IV antibiotics through [facility] have been ordered. He will be going home with nafcillin 12 grams continuous infusion and rifampin 300 mg by mouth twice a day until 03/25.
[2017-02-27] MEDS: **NOTE PATIENT COMMENT** MISC XX SCH (20:50)
[2017-02-27 22:00] VITALS: BP 129/61
[2017-02-28] MEDS: NAFCILLIN SOD 2 GM in D5W MINI-BAG PLUS 100 ML IV SCH ×6 (03:13→22:50)
[2017-02-28] MEDS: SODIUM CHLORIDE 0.9% INJ 10 ML SYR IV PRN ×4 (03:13→22:50)
[2017-02-28 05:39] LABS: INR 2.53
[2017-02-28 05:46] LABS: CALCIUM LEVEL 8.7 MG/DL (8.8-10.2); CREATININE FOR GFR 1.39 MG/DL (0.70-1.30); GLOMERULAR FILTRATION RATE 52.2 (>35); POTASSIUM SERUM 3.6 MEQ/L (3.5-5.1)
[2017-02-28 06:00] VITALS: BP 129/61
[2017-02-28] MEDS: GABAPENTIN 300 MG CAP PO SCH ×3 (06:32→21:03)
[2017-02-28] MEDS: SODIUM CHLORIDE 0.9% INJ 10 ML SYR IV SCH ×2 (06:32→18:14)
[2017-02-28] MEDS: IPRATROPIUM 0.5MG/ALBUTEROL 2.5MG INH SOL UD 3ML (DUONEB)(J7620) NEB SCH ×3 (08:00→15:44)
[2017-02-28 09:14] VITALS: BP 142/73
[2017-02-28] MEDS: oxyCODONE 10 MG CR TAB PO SCH ×2 (09:16→21:04)
[2017-02-28] MEDS: FINASTERIDE 5 MG TAB PO SCH (09:16)
[2017-02-28] MEDS: TAMSULOSIN 0.4 MG CAP PO SCH (09:16)
[2017-02-28] MEDS: FUROSEMIDE 40 MG TAB PO SCH (09:17)
[2017-02-28] MEDS: LIDOCAINE 5% (LIDODERM) PATCH TD SCH (09:17)
[2017-02-28] MEDS: traMADol 50 MG TAB PO SCH ×4 (09:17→21:05)
[2017-02-28] MEDS: BREO ELLIPTA INH SCH (09:18)
[2017-02-28] MEDS: ANORO ELLIPTA INH SCH (09:18)
[2017-02-28] MEDS: LISINOPRIL 5 MG TAB PO SCH (09:19)
[2017-02-28 14:00] VITALS: BP 110/54
[2017-02-28] MEDS: WARFARIN SOD 5 MG TAB PO SCH (16:01)
[2017-02-28 20:52] VITALS: BP 122/68
[2017-02-28] MEDS: **NOTE PATIENT COMMENT** MISC XX SCH (21:00)
[2017-02-28] MEDS: oxyCODONE 5MG TAB PO PRN (22:49)
[2017-03-01] MEDS: NAFCILLIN SOD 2 GM in D5W MINI-BAG PLUS 100 ML IV SCH ×6 (03:25→22:36)
[2017-03-01] MEDS: SODIUM CHLORIDE 0.9% INJ 10 ML SYR IV PRN ×3 (03:26→22:36)
[2017-03-01 05:54] LABS: INR 2.52
[2017-03-01 06:36] VITALS: BP 126/73
[2017-03-01] MEDS: GABAPENTIN 300 MG CAP PO SCH ×3 (06:50→22:12)
[2017-03-01] MEDS: SODIUM CHLORIDE 0.9% INJ 10 ML SYR IV SCH ×2 (06:50→12:11)
[2017-03-01] MEDS: IPRATROPIUM 0.5MG/ALBUTEROL 2.5MG INH SOL UD 3ML (DUONEB)(J7620) NEB SCH ×3 (08:00→16:45)
[2017-03-01] MEDS: ANORO ELLIPTA INH SCH (08:43)
[2017-03-01] MEDS: BREO ELLIPTA INH SCH (08:44)
[2017-03-01] MEDS: FINASTERIDE 5 MG TAB PO SCH (08:57)
[2017-03-01] MEDS: FUROSEMIDE 40 MG TAB PO SCH (08:58)
[2017-03-01] MEDS: traMADol 50 MG TAB PO SCH ×4 (08:58→22:11)
[2017-03-01] MEDS: TAMSULOSIN 0.4 MG CAP PO SCH (08:58)
[2017-03-01] MEDS: LISINOPRIL 5 MG TAB PO SCH (08:59)
[2017-03-01] MEDS: oxyCODONE 10 MG CR TAB PO SCH ×2 (08:59→22:13)
[2017-03-01] MEDS: LIDOCAINE 5% (LIDODERM) PATCH TD SCH (09:00)
[2017-03-01 14:00] VITALS: BP 106/55
[2017-03-01] MEDS: WARFARIN SOD 5 MG TAB PO SCH (17:04)
[2017-03-01 20:00] VITALS: BP 123/65
[2017-03-01] MEDS: **NOTE PATIENT COMMENT** MISC XX SCH (21:00)
[2017-03-02] MEDS: NAFCILLIN SOD 2 GM in D5W MINI-BAG PLUS 100 ML IV SCH ×6 (03:48→23:32)
[2017-03-02] MEDS: SODIUM CHLORIDE 0.9% INJ 10 ML SYR IV SCH ×2 (03:48→20:43)
[2017-03-02 05:27] LABS: MEAN CORPUSCULAR HEMOGLOBIN 28.8 pg (27.0-33.0); RED CELL DISTRIBUTION WIDTH 17.6 % (11.5-14.5); WHITE BLOOD COUNT 6.6 K/mm3 (4.0-10.0)
[2017-03-02 05:37] LABS: INR 1.85
[2017-03-02 05:47] LABS: ANION GAP 6 MEQ/L (8-16); BLOOD UREA NITROGEN 24 MG/DL (7-18); CALCIUM LEVEL 8.7 MG/DL (8.8-10.2); CARBON DIOXIDE LEVEL 33 MEQ/L (21-32); CHLORIDE LEVEL 99 MEQ/L (98-107); GLOMERULAR FILTRATION RATE > 60.0 (>35); GLUCOSE, FASTING 99 MG/DL (83-110); POTASSIUM SERUM 3.4 MEQ/L (3.5-5.1); SODIUM LEVEL 138 MEQ/L (136-145)
[2017-03-02 06:00] VITALS: BP 161/89
[2017-03-02] MEDS: GABAPENTIN 300 MG CAP PO SCH (06:08)
[2017-03-02] MEDS: SODIUM CHLORIDE 0.9% INJ 10 ML SYR IV PRN ×3 (06:13→23:32)
[2017-03-02] MEDS: IPRATROPIUM 0.5MG/ALBUTEROL 2.5MG INH SOL UD 3ML (DUONEB)(J7620) NEB SCH ×2 (08:00→15:10)
[2017-03-02] MEDS: BREO ELLIPTA INH SCH (08:05)
[2017-03-02] MEDS: ANORO ELLIPTA INH SCH (08:05)
[2017-03-02] MEDS: FINASTERIDE 5 MG TAB PO SCH (08:41)
[2017-03-02] MEDS: LISINOPRIL 5 MG TAB PO SCH (08:41)
[2017-03-02] MEDS: TAMSULOSIN 0.4 MG CAP PO SCH (08:41)
[2017-03-02] MEDS: FUROSEMIDE 40 MG TAB PO SCH (08:41)
[2017-03-02] MEDS: traMADol 50 MG TAB PO SCH ×4 (08:42→20:45)
[2017-03-02] MEDS: oxyCODONE 10 MG CR TAB PO SCH ×2 (08:42→20:45)
[2017-03-02] MEDS: LIDOCAINE 5% (LIDODERM) PATCH TD SCH (08:43)
[2017-03-02] MEDS ORDERED: oxyCODONE 5MG TAB PO PRN (09:30)
--- NOTE | 2017-03-02 12:31 | IPNPDOC ---
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 This is cause secondary weakness which is improving with training but mainly the pain has been most limiting and patient making notable progress as the gabapentin has decreased his pain along with use of OxyContin to give him steady analgesia. Patient pain overall has been doing better he notes no fever chills but is still having trouble with bladder drainage. Patient reports the new TLSO is much better for comfort and less hot. ALLERGIES: See Below MEDICATIONS: Reviewed, see below. OBJECTIVE: VITAL SIGNS: Please see below. PHYSICAL EXAMINATION: GENERAL: Well-nourished well-developed elderly white male who is alert and well oriented and appears to be in very mild musculoskeletal distress. HEENT: Normocephalic atraumatic. CARDIOVASCULAR: Regular rate and rhythm with normal S1 and S2 without S3-S4 murmurs or rubs. 2 out 4 bilateral radial pulses. LUNGS: All more clear to auscultation though often patient does not open his mouth to take deep breaths and then upper airway sounds are heard. ABDOMEN: Benign, flat, nontender with bowel sounds in all quadrants. NEUROLOGICAL: Patient is alert and oriented 4. Speech is clear coherent and appropriate. Patient is pleasant and cooperative but has a little bit of anxiousness. Memory is fair to good. Motor strength and endurance in the lower extremity is improving as getting distances increasing. SKIN: Intact LABORATORY DATA: Reviewed. Please see below. MICROBIOLOGY: Please see below. IMAGING: No new. DVT prophylaxis ordered?: Coumadin INR was therapeutic this weekend but has dropped down to 1.85 while on the steady dose. ASSESSMENT AND PLAN: 1. Rehabilitation cauda equina's syndrome: Patient overall doing well making progress and mobilities transfers and self-care. Anticipate it discharge Thursday the . I am looking to further adjust patient away from opiates and more to gabapentin and tramadol for his pain control. 2. Neurogenic bladder with retention: Proceeding with patient and family training, will need patient to be catheterizing at least every night at bedtime. Need to get patient and family to learn intermittant catheterization to facilitate return to home for at least qHS cath. 3. Osteomyelitis with discitis and spinal abscess: Patient seems to be doing well with rifampin and ampicillin. Dr. Bobby's note appreciated. 4. D/C Planning: [facility] 03/04/2017 with order for [place] and catheterization supplies. Need to get home IV agency to set up for continuous infusion to complete Naficillin and continue po Rifampin for about 4 more weeks. TIME SPENT: Chart Review, examination and documentation greater than 35 minutes. Allergies Coded Allergies: Morphine (Verified Adverse Reaction, Intermediate, confusion, 01/28/17) Vital Signs Vital Signs Date Time Temp Pulse Resp B/P Pulse Ox O2 Delivery O2 Flow Rate FiO2 03/02/17 09:00 Room Air 2.0 03/02/17 08:42 18 03/02/17 08:42 68 161/89 03/02/17 06:00 98.1 92 Laboratory Data CBC/BMP Laboratory Tests 03/02/17 05:01 Calcium Level 8.7 L, Red Blood Count 3.05 L, Mean Corpuscular Volume 90.0, Mean Corpuscular Hemoglobin 28.8, Mean Corpuscular Hemoglobin Concent 32.0, Red Cell Distribution Width 17.6 H Labs 24H Laboratory Tests 2 03/02/17 05:01: Anion Gap 6L, C-Reactive Protein, Quantitative 3.22H, Blood Urea Nitrogen 24H, Creatinine 1.20, Sodium Level 138, Potassium Level 3.4L, Chloride Level 99, Carbon Dioxide Level 33H, Calcium Level 8.7L, Glomerular Filtration Rate > 60.0 , Prothromb Time International Ratio 1.85, Prothrombin Time 21.4H Current Medications Current Medications Current Medications Albuterol Sulfate (Proventil, Ventolin Hfa) 2 puff Q4HP PRN INH SHORTNESS OF BREATH Last administered on 02/23/17 21:37; Start 02/23/17 at 15:45; Stop 03/25 at 15:44 Albuterol/ Ipratropium (Duoneb (Ipr 0.5mg/Alb 2.5mg)) 3 ml RQ8H NEB Last administered on 03/01/17 16:45; Start 02/24/17 at 00:00; Stop 03/26/17 at 00:00 Budesonide (Pulmicort Flexhaler) 2 puff BID INH Last administered on 02/24/17 07:45; Start 02/23/17 at 21:00; Stop 02/24/17 at 12:09; Status DC Diltiazem HCl (Cardizem Cd) 120 mg DAILY PO Last administered on 03/02/17 08: 42; Start 02/24/17 at 09:00; Stop 03/26/17 at 08:59 Finasteride (Proscar) 5 mg DAILY PO Last administered on 03/02/17 08:41; Start 02/24/17 at 09:00; Stop 03/26/17 at 08:59 Furosemide (Lasix) 40 mg DAILY PO Last administered on 03/02/17 08:41; Start 02/24/17 at 09:00; Stop 03/26/17 at 08:59 Gabapentin (Neurontin) 400 mg TID PO Last administered on 02/25/17 08:54; Start 02/23/17 at 21:00; Stop 02/25/17 at 09:27; Status DC Gabapentin (Neurontin) 400 mg TID PO Last administered on 02/25/17 16:04; Start 02/25/17 at 16:00; Stop 02/25/17 at 17:00; Status DC Gabapentin (Neurontin) 600 mg Q8H PO Last administered on 03/02/17 06:08; Start 02/25/17 at 22:00; Stop 03/02/17 at 09:07; Status DC Gabapentin (Neurontin) 800 mg Q8H PO ; Start 03/02/17 at 14:00; Stop 04/01/17 at 13:59 Heparin Sodium (Heparin (Flush)) 200 units ASDIRECTED PRN IV SEE LABEL COMMENTS Last administered on 03/02/17 06:12; Start 02/23/17 at 18:00; Stop 09/01 at 17:59 Heparin Sodium (Heparin (Flush)) 200 units PICC IV Last administered on 03:48; Start 02/23/17 at 18:00; Stop 03/25/17 at 17:59 Home Med ASDIRECTED XX ; Start 02/23/17 at 17:45; Stop 02/23/17 at 17:45; Status DC Lidocaine (Lidoderm Patch) 1 patch DAILY TD Last administered on 03/02/17 08: 43; Start 02/24/17 at 09:00; Stop 03/26/17 at 08:59 Lisinopril (Prinivil) 5 mg DAILY PO Last administered on 03/02/17 08:41; Start 02/24/17 at 09:00; Stop 03/26/17 at 08:59 Nafcillin Sodium (Nafcil) 2 gm Q4H IV ; Start 02/23/17 at 15:45; Stop 02/23/17 at 17:47; Status DC Nafcillin Sodium/ Dextrose (Nafcil/Dextrose 5% Mini-Bag Plus) 100 ml @ 100 mls/ hr Q4H IV Last administered on 03/02/17 10:40; Start 02/23/17 at 19:00; Stop 03/02/17 at 18:59 Non-Formulary Medication ( See Comment Field Below ) REMOVE LIDODERM PATCH DAILY@21 XX Last administered on 03/01/17 21:00; Start 02/23/17 at 21:00; Stop 03/25/17 at 20:59 Oxycodone HCl (OxyCONTIN) 10 mg BID PO Last administered on 03/02/17 08:42; Start 02/23/17 at 21:00; Stop 03/02/17 at 09:07; Status DC Oxycodone HCl (OxyCONTIN) 10 mg BID PO ; Start 03/02/17 at 21:00; Stop 03/09/17 at 10:00 Oxycodone HCl (Roxicodone, Oxyir) 5 mg Q6HP PRN PO PAIN Last administered on 22:49; Start 02/23/17 at 16:45; Stop 03/02/17 at 09:07; Status DC Oxycodone HCl (Roxicodone, Oxyir) 5 mg Q8HP PRN PO PAIN; Start 03/02/17 at 09: 30; Stop 03/09/17 at 10:00 Patient Own Medication (Patient'S Own Med) Anoro Ellipta 62.5... DAILY INH Last administered on 03/02/17 08:05; Start 02/25/17 at 09:00; Stop 03/27/17 at 08:59 Patient Own Medication (Patient'S Own Med) Breo Ellipta 200MCG... DAILY INH Last administered on 03/02/17 08:05; Start 02/25/17 at 09:00; Stop 03/27/17 at 08:59 Rifampin (Rifadin) 300 mg BID PO Last administered on 03/02/17 08:43; Start at 21:00; Stop 03/09/17 at 20:59 Senna (Senokot) 1 tab BIDP PRN PO CONSTIPATION; Start 02/23/17 at 15:45; Stop 03/25/17 at 15:44 Sodium Chloride (Saline Lock Flush) 10 ml ASDIRECTED PRN IV SEE LABEL COMMENTS Last administered on 03/02/17 06:13; Start 02/23/17 at 18:00; Stop 03/25/17 at 17:59 Sodium Chloride (Saline Lock Flush) 10 ml PICC IV Last administered on 03:48; Start 02/23/17 at 18:00; Stop 03/25/17 at 17:59 Tamsulosin HCl (Flomax) 0.4 mg DAILY PO Last administered on 02/24/17 08:50; Start 02/24/17 at 09:00; Stop 02/24/17 at 10:26; Status DC Tamsulosin HCl (Flomax) 0.8 mg DAILY PO Last administered on 03/02/17 08:41; Start 02/25/17 at 09:00; Stop 03/27/17 at 08:59 Tramadol HCl (Ultram) 50 mg Q6HP PRN PO MODERATE PAIN (PS 5-7) Last administered on 02/26/17 15:27; Start 02/23/17 at 15:45; Stop 03/02/17 at 15:44 Tramadol HCl (Ultram) 50 mg QID PO Last administered on 03/02/17 08:42; Start 02/26/17 at 13:00; Stop 03/05/17 at 12:59 Warfarin Sodium (Coumadin) 5 mg DAILY@17 PO Last administered on 02/26/17 17: 54; Start 02/25/17 at 17:00; Stop 02/27/17 at 11:36; Status DC Warfarin Sodium (Coumadin) 5 mg DAILY@17 PO Last administered on 03/01/17 17: 04; Start 02/28/17 at 17:00; Stop 03/07/17 at 16:59 Warfarin Sodium (Coumadin) 6 mg DAILY@17 PO ; Start 02/24/17 at 17:00; Stop at 16:59; Status Cancel Warfarin Sodium (Coumadin) 6 mg DAILY@17 PO Last administered on 02/27/17t 16: 00; Start 02/27/17 at 17:00; Stop 02/28/17 at 13:35; Status DC LIANE NEWTON MD Mar 02, 2017 12:31
[2017-03-02 14:00] VITALS: BP 140/74
[2017-03-02] MEDS: GABAPENTIN 400 MG CAP PO SCH ×2 (14:36→22:15)
[2017-03-02] MEDS ORDERED: POTASSIUM CHLORIDE 10 MEQ SR TABLET PO ONE (15:00)
[2017-03-02] MEDS: WARFARIN SOD 5 MG TAB PO SCH (18:14)
[2017-03-02 20:00] VITALS: BP 138/77
[2017-03-02] MEDS: **NOTE PATIENT COMMENT** MISC XX SCH (20:46)
[2017-03-03] MEDS: IPRATROPIUM 0.5MG/ALBUTEROL 2.5MG INH SOL UD 3ML (DUONEB)(J7620) NEB SCH ×4 (00:12→23:07)
[2017-03-03] MEDS: NAFCILLIN SOD 2 GM in D5W MINI-BAG PLUS 100 ML IV SCH ×6 (03:44→22:41)
[2017-03-03] MEDS: SODIUM CHLORIDE 0.9% INJ 10 ML SYR IV PRN ×3 (03:45→23:59)
[2017-03-03 06:00] VITALS: BP 132/63
[2017-03-03] MEDS: GABAPENTIN 400 MG CAP PO SCH ×3 (06:21→22:39)
[2017-03-03] MEDS: SODIUM CHLORIDE 0.9% INJ 10 ML SYR IV SCH ×2 (07:10→16:45)
[2017-03-03] MEDS: ANORO ELLIPTA INH SCH (07:49)
[2017-03-03] MEDS: BREO ELLIPTA INH SCH (07:49)
[2017-03-03] MEDS: LISINOPRIL 5 MG TAB PO SCH (08:40)
[2017-03-03] MEDS: FUROSEMIDE 40 MG TAB PO SCH (08:40)
[2017-03-03] MEDS: TAMSULOSIN 0.4 MG CAP PO SCH (08:40)
[2017-03-03] MEDS: FINASTERIDE 5 MG TAB PO SCH (08:40)
[2017-03-03] MEDS: traMADol 50 MG TAB PO SCH ×4 (08:41→20:18)
[2017-03-03] MEDS: oxyCODONE 10 MG CR TAB PO SCH ×2 (08:42→20:18)
[2017-03-03] MEDS: LIDOCAINE 5% (LIDODERM) PATCH TD SCH (08:43)
--- NOTE | 2017-03-03 11:12 | IPNPDOC ---
Guest Relations Officer Progress Note DATE OF SERVICE: 03/03/2017 DATE OF ADMISSION: Feb 23, 2017 at 17:00 INPATIENT REHABILITATION ADMISSION DAY: #8 SUBJECTIVE: Patient is a 81-year-old white male with cauda equina syndrome. Patient notes no fever chills night sweats and that his pain is under good control especially when he lies down he feels almost nothing. ALLERGIES: See Below MEDICATIONS: Reviewed, see below. OBJECTIVE: VITAL SIGNS: Please see below. PHYSICAL EXAMINATION: GENERAL: Well-nourished well-developed elderly white male who is alert and oriented 4. Speech is clear coherent and appropriate. Affect is pleasant and cooperative, and memory is good. Patient is in no acute distress at this time wearing his TLSO in bed. CARDIOVASCULAR: Regular rate and rhythm with normal S1 and S2. LUNGS: All more clear to auscultation with good air movement. LABORATORY DATA: Reviewed. Please see below. MICROBIOLOGY: Please see below. DVT prophylaxis ordered?: Patient continuing on Coumadin 5 mg nightly ASSESSMENT AND PLAN: 1. Rehabilitation cauda equina syndrome: Patient has done well on the pain control however need to try and transition further away from opiates as patient going home tomorrow. 2. Neurogenic bladder: Patient says he will do his self caths 1-2 times a day. 3. Osteomyelitis: Patient received nafcillin and rifampin at home. TIME SPENT: Chart Review, examination and documentation greater 15 minutes. Allergies Coded Allergies: Morphine (Verified Adverse Reaction, Intermediate, confusion, 01/28/17) Vital Signs Vital Signs Date Time Temp Pulse Resp B/P Pulse Ox O2 Delivery O2 Flow Rate FiO2 03/03/17 09:00 Room Air 03/03/17 08:42 20 03/03/17 08:40 132/63 03/03/17 08:39 75 03/03/17 06:00 98.2 93 03/02/17 09:00 2.0 Current Medications Current Medications Current Medications Albuterol Sulfate (Proventil, Ventolin Hfa) 2 puff Q4HP PRN INH SHORTNESS OF BREATH Last administered on 02/23/17t 21:37; Start 02/23/17 at 15:45; Stop 03/25 at 15:44 Albuterol/ Ipratropium (Duoneb (Ipr 0.5mg/Alb 2.5mg)) 3 ml RQ8H NEB Last administered on 03/03/17 00:12; Start 02/24/17 at 00:00; Stop 03/26/17 at 00:00 Budesonide (Pulmicort Flexhaler) 2 puff BID INH Last administered on 02/24/17 07:45; Start 02/23/17 at 21:00; Stop 02/24/17 at 12:09; Status DC Diltiazem HCl (Cardizem Cd) 120 mg DAILY PO Last administered on 03/03/17 08: 39; Start 02/24/17 at 09:00; Stop 03/26/17 at 08:59 Finasteride (Proscar) 5 mg DAILY PO Last administered on 03/03/17 08:40; Start 02/24/17 at 09:00; Stop 03/26/17 at 08:59 Furosemide (Lasix) 40 mg DAILY PO Last administered on 03/03/17 08:40; Start 02/24/17 at 09:00; Stop 03/26/17 at 08:59 Gabapentin (Neurontin) 400 mg TID PO Last administered on 02/25/17 08:54; Start 02/23/17 at 21:00; Stop 02/25/17 at 09:27; Status DC Gabapentin (Neurontin) 400 mg TID PO Last administered on 02/25/17 16:04; Start 02/25/17 at 16:00; Stop 02/25/17 at 17:00; Status DC Gabapentin (Neurontin) 600 mg Q8H PO Last administered on 03/02/17 06:08; Start 02/25/17 at 22:00; Stop 03/02/17 at 09:07; Status DC Gabapentin (Neurontin) 800 mg Q8H PO Last administered on 03/03/17 06:21; Start 03/02/17 at 14:00; Stop 04/01/17 at 13:59 Heparin Sodium (Heparin (Flush)) 200 units ASDIRECTED PRN IV SEE LABEL COMMENTS Last administered on 03/02/17 06:12; Start 02/23/17 at 18:00; Stop 09/01 at 17:59 Heparin Sodium (Heparin (Flush)) 200 units PICC IV Last administered on 08:42; Start 02/23/17 at 18:00; Stop 03/25/17 at 17:59 Home Med ASDIRECTED XX ; Start 02/23/17 at 17:45; Stop 02/23/17 at 17:45; Status DC Lidocaine (Lidoderm Patch) 1 patch DAILY TD Last administered on 03/03/17 08: 43; Start 02/24/17 at 09:00; Stop 03/26/17 at 08:59 Lisinopril (Prinivil) 5 mg DAILY PO Last administered on 03/03/17 08:40; Start 02/24/17 at 09:00; Stop 03/26/17 at 08:59 Nafcillin Sodium (Nafcil) 2 gm Q4H IV ; Start 02/23/17 at 15:45; Stop 02/23/17 at 17:47; Status DC Nafcillin Sodium/ Dextrose (Nafcil/Dextrose 5% Mini-Bag Plus) 100 ml @ 100 mls/ hr Q4H IV Last administered on 03/03/17 07:19; Start 02/23/17 at 19:00; Stop 03/09/17 at 18:59 Non-Formulary Medication ( See Comment Field Below ) REMOVE LIDODERM PATCH DAILY@21 XX Last administered on 03/02/17 20:46; Start 02/23/17 at 21:00; Stop 03/25/17 at 20:59 Oxycodone HCl (OxyCONTIN) 10 mg BID PO Last administered on 03/02/17 08:42; Start 02/23/17 at 21:00; Stop 03/02/17 at 09:07; Status DC Oxycodone HCl (OxyCONTIN) 10 mg BID PO Last administered on 03/03/17 08:42; Start 03/02/17 at 21:00; Stop 03/09/17 at 10:00 Oxycodone HCl (Roxicodone, Oxyir) 5 mg Q6HP PRN PO PAIN Last administered on 22:49; Start 02/23/17 at 16:45; Stop 03/02/17 at 09:07; Status DC Oxycodone HCl (Roxicodone, Oxyir) 5 mg Q8HP PRN PO PAIN; Start 03/02/17 at 09: 30; Stop 03/09/17 at 10:00 Patient Own Medication (Patient'S Own Med) Anoro Ellipta 62.5... DAILY INH Last administered on 03/03/17 07:49; Start 02/25/17 at 09:00; Stop 03/27/17 at 08:59 Patient Own Medication (Patient'S Own Med) Breo Ellipta 200MCG... DAILY INH Last administered on 03/03/17 07:49; Start 02/25/17 at 09:00; Stop 03/27/17 at 08:59 Rifampin (Rifadin) 300 mg BID PO Last administered on 03/03/17 08:40; Start at 21:00; Stop 03/09/17 at 20:59 Senna (Senokot) 1 tab BIDP PRN PO CONSTIPATION; Start 02/23/17 at 15:45; Stop 03/25/17 at 15:44 Sodium Chloride (Saline Lock Flush) 10 ml ASDIRECTED PRN IV SEE LABEL COMMENTS Last administered on 03/03/17 03:45; Start 02/23/17 at 18:00; Stop 03/25/17 at 17:59 Sodium Chloride (Saline Lock Flush) 10 ml PICC IV Last administered on 07:10; Start 02/23/17 at 18:00; Stop 03/25/17 at 17:59 Tamsulosin HCl (Flomax) 0.4 mg DAILY PO Last administered on 02/24/17 08:50; Start 02/24/17 at 09:00; Stop 02/24/17 at 10:26; Status DC Tamsulosin HCl (Flomax) 0.8 mg DAILY PO Last administered on 03/03/17 08:40; Start 02/25/17 at 09:00; Stop 03/27/17 at 08:59 Tramadol HCl (Ultram) 50 mg Q6HP PRN PO MODERATE PAIN (PS 5-7) Last administered on 02/26/17 15:27; Start 02/23/17 at 15:45; Stop 03/02/17 at 15:44 ; Status DC Tramadol HCl (Ultram) 50 mg QID PO Last administered on 03/03/17 08:41; Start 02/26/17 at 13:00; Stop 03/05/17 at 12:59 Warfarin Sodium (Coumadin) 5 mg DAILY@17 PO Last administered on 02/26/17 17: 54; Start 02/25/17 at 17:00; Stop 02/27/17 at 11:36; Status DC Warfarin Sodium (Coumadin) 5 mg DAILY@17 PO Last administered on 03/02/17t 18: 14; Start 02/28/17 at 17:00; Stop 03/07/17 at 16:59 Warfarin Sodium (Coumadin) 6 mg DAILY@17 PO ; Start 02/24/17 at 17:00; Stop at 16:59; Status Cancel Warfarin Sodium (Coumadin) 6 mg DAILY@17 PO Last administered on 02/27/17 16: 00; Start 02/27/17 at 17:00; Stop 02/28/17 at 13:35; Status DC LIANE NEWTON MD Mar 03, 2017 11:12
[2017-03-03 14:00] VITALS: BP 151/71
[2017-03-03] MEDS: WARFARIN SOD 5 MG TAB PO SCH (16:44)
[2017-03-03] MEDS: **NOTE PATIENT COMMENT** MISC XX SCH (20:19)
[2017-03-03 20:23] VITALS: BP 99/61
[2017-03-04] MEDS: SODIUM CHLORIDE 0.9% INJ 10 ML SYR IV PRN ×4 (03:29→10:49)
[2017-03-04] MEDS: NAFCILLIN SOD 2 GM in D5W MINI-BAG PLUS 100 ML IV SCH ×3 (03:29→10:49)
[2017-03-04 04:50] VITALS: BP 138/64
[2017-03-04] MEDS: GABAPENTIN 400 MG CAP PO SCH ×2 (06:43→13:00)
[2017-03-04] MEDS: ANORO ELLIPTA INH SCH (07:36)
[2017-03-04] MEDS: BREO ELLIPTA INH SCH (07:36)
[2017-03-04] MEDS: IPRATROPIUM 0.5MG/ALBUTEROL 2.5MG INH SOL UD 3ML (DUONEB)(J7620) NEB SCH ×2 (07:36→15:27)
[2017-03-04 07:56] LABS: INR 1.98
[2017-03-04] MEDS: LIDOCAINE 5% (LIDODERM) PATCH TD SCH (08:45)
[2017-03-04] MEDS: TAMSULOSIN 0.4 MG CAP PO SCH (08:46)
[2017-03-04] MEDS: SODIUM CHLORIDE 0.9% INJ 10 ML SYR IV SCH (08:46)
[2017-03-04] MEDS: traMADol 50 MG TAB PO SCH ×2 (08:46→13:00)
[2017-03-04] MEDS: FUROSEMIDE 40 MG TAB PO SCH (08:46)
[2017-03-04 08:47] VITALS: BP 138/64
[2017-03-04] MEDS: FINASTERIDE 5 MG TAB PO SCH (08:47)
[2017-03-04] MEDS: LISINOPRIL 5 MG TAB PO SCH (08:47)
[2017-03-04] MEDS: oxyCODONE 10 MG CR TAB PO SCH (08:47)
[2017-03-04] MEDS ORDERED: FLOM5CAP PO (09:03)
[2017-03-04] MEDS ORDERED: TRAM50TA2 PO (09:03)
[2017-03-04] MEDS ORDERED: OXYC1TAB55 PO (09:03)
[2017-03-04] MEDS ORDERED: GABA-283 PO (09:04)
[2017-03-04] MEDS ORDERED: COUM1TAB17 PO (09:57)
[2017-03-04] MEDS ORDERED: LIDO5TD TD (09:58)
[2017-03-04] MEDS ORDERED: RIFA150C PO (09:58)
[2017-03-04] MEDS ORDERED: BREO1INH INH (09:58)
[2017-03-04] MEDS ORDERED: PROS5TAB PO (09:58)
[2017-03-04] MEDS ORDERED: LISI-542 PO (09:58)
[2017-03-04] MEDS ORDERED: ANOR1AER INH (09:58)
[2017-03-04] MEDS ORDERED: LASI40TA PO (09:58)
[2017-03-04] MEDS ORDERED: PROA1AER INH (09:58)
[2017-03-04] MEDS ORDERED: DILT120C PO (09:58)
[2017-03-04 14:16] VITALS: BP 99/55
--- NOTE | 2017-03-04 17:45 | PMRDS ---
DATE OF ADMISSION: 02/23/2017 DATE OF DISCHARGE: 03/04/2017 DISCHARGE DIAGNOSES: 1. Rehabilitation of cauda equina syndrome. 1a. Neurogenic pain. 1b. Neurogenic bladder with retention. 1c. Incomplete L1 paraparesis. 2. Discitis. 3. L1 and L2 osteomyelitis with methicillin-sensitive Staphylococcus aureus (MSSA). 4. Abscess. 5. Atrial fibrillation. 6. Acute kidney injury. 7. Hypertension. 8. Chronic obstructive pulmonary disease (COPD). 9. Obstructive sleep apnea. 10. Anemia. 11. Hypoalbuminemia. 12. History of non-small cell lung cancer. PROCEDURES DURING THE COURSE OF THIS ADMISSION: None. DIAGNOSTIC AND LABORATORY DATA OF PERTINENCE: The patient's anemia noted with admission, hemoglobin and hematocrit of 9.4 and 29.2 on 02/24/2017 has remained fairly stable with hemoglobin 8.8, hematocrit 27.4 on 03/02/2017. Patient with acute kidney injury, has shown improvement in his BUN and a normal creatinine. His BUN on 03/02/2017 is 24. He has hypoalbuminemia with an albumin of 1.7. Also, this was done on 2016. His most current INR for DVT prophylaxis is 1.98. No imaging studies or other diagnostic procedures during his stay on the rehabilitation unit. HOSPITAL COURSE: Patient admitted to the acute rehabilitation unit in transfer from medicine. Patient with frequent reports of pain ranked 8-9 over 10, going from his back down into his lower extremities. This was exacerbated by changes in weather as well as any activity, especially transfers and any attempts of ambulation. Patient's pain medications were adjusted with increase in his gabapentin from 100 mg three times a day and now patient is on 800 mg by mouth every eight hours providing steadier analgesia as much of his pain is felt to be neurogenic from the compression of the abscess and inflammation, likely arachnoiditis, down at the cauda equina. Furthermore, patient was transitioned from 1-2 Percocet 5 mg to oxycodone 10 mg every 12 hours with oxycodone 5 mg and transition now off of the oxycodone except once or twice a day for breakthrough pain. Patient has been started on tramadol and has been taking 50 mg four times a day with additional 50 mg up to four times a day for breakthrough pain but is only using about 50 mg twice a day this way. His pain has markedly improved as has his physical performance and physical and occupational therapy. Per occupational therapy (OT) found patient with 4/5 upper extremities. He required by standby assistance for bed mobility but was unable to do sit to stand or ambulation secondary to left lower extremity weakness. Patient has transitioned now to the point where lower extremity dressing has gone from moderate to maximum assist to minimal assist, upper extremity dressing from minimal assistance to standby assistance, donning his TLSO with total assist and now patient with minimal to standby assistance. Bathing and toileting were moderate to maximum assist and the patient was unable, per OT, to sit to stand and is now standby assistance for sit to stand and transfers. Patient has progressed to ambulating 130 feet with a rolling walker and contact guard assistance and able to do seven steps. Overall, he does note significant pain reduction and improvement in overall mobility and control. DISCHARGE MEDICATIONS: - ProAir HFA 108 mcg two puffs every four hours as needed for shortness of breath - Anoro Ellipta Aer 62.5/25 one inhalation daily - Breo inhaler one inhalation daily - diltiazem 120 mg extended release by mouth daily - finasteride 5 mg by mouth daily for benign prostatic hypertrophy (BPH) - furosemide 40 mg by mouth daily for hypertension - Lidoderm patch one patch per 12 hours daily to back - lisinopril 5 mg by mouth daily - oxycodone HCL extended release 10 mg by mouth every 12 hours times seven days, then 10 mg by mouth every morning for seven days and then discontinue - tamsulosin 0.8 mg by mouth daily - tramadol 50 mg by mouth every four hours as needed for pain - Coumadin 5 mg by mouth daily, #7 tablets issued, patient to see his primary care and have adjustments made to this medication with target range of 2.0 to 3.0 on international normalized ratio (INR), patient issued #7 tablets for seven days - nafcillin sodium 2 grams IV every four hours or 12 grams per day by infusion, home care arranged for this to followup through Dr. Bobby - rifampin 150 mg capsule two capsules by mouth twice a day, both nafcillin and rifampin are targeted to continue until 03/25/2017 COMPLICATIONS: No complications during the admissions. DISCHARGE PLANS/INSTRUCTIONS: 1. Patient to see his primary care, JANA Eubanks at [facility], phone number is [phone], within a week for followup on general health and Coumadin management for the treatment of atrial fibrillation. 2. Patient to see Dr. Bobby within four weeks for management of his antibiotics for his osteomyelitis and discitis. 3. Patient to have home care nursing for drawing international normalized ratio (INR) every other day times three and reporting these to Ms. Newberry for assessment and management. Also, nursing to help the patient and family with infusion therapy of the nafcillin. 4. Also physical and occupational therapy to continue to work on facilitating lower extremity strength and recovery and activities of daily living (ADLs) skills and mobility. 5. Patient to do intermittent catheterizations secondary to neurogenic bladder and benign prostatic hypertrophy (BPH) with urinary retention 1-2 times per day. He should do it every night at least before bedtime to completely empty the bladder. Intermittent catheterization supplies have also been ordered. TIME SPENT ON DISCHARGE: Greater than 35 minutes. MTDD
== END 2017-03-04 16:00 | disposition home health service (06) | DRG 73 ==
LOC: M PM&R 17:00
PROVIDERS: ADMIT Physical Medicine & Rehabilitation; ATTEND Physical Medicine & Rehabilitation
DX: G83.4 Cauda equina syndrome (principal); G06.1 Intraspinal abscess and granuloma; M46.26 Osteomyelitis of vertebra, lumbar region; N17.9 Acute kidney failure, unspecified; B95.61 Methicillin susceptible Staphylococcus aureus infection as the cause of diseases classified elsewhere; J44.9 Chronic obstructive pulmonary disease, unspecified; Z88.5 Allergy status to narcotic agent; Z79.899 Other long term (current) drug therapy; Z87.891 Personal history of nicotine dependence; Z77.090 Contact with and (suspected) exposure to asbestos; Z82.49 Family history of ischemic heart disease and other diseases of the circulatory system; Z80.1 Family history of malignant neoplasm of trachea, bronchus and lung; Z83.6 Family history of other diseases of the respiratory system; G47.33 Obstructive sleep apnea (adult) (pediatric); R33.9 Retention of urine, unspecified; M46.46 Discitis, unspecified, lumbar region; I48.0 Paroxysmal atrial fibrillation; I10 Essential (primary) hypertension; G95.20 Unspecified cord compression; M79.2 Neuralgia and neuritis, unspecified; D64.9 Anemia, unspecified; N31.9 Neuromuscular dysfunction of bladder, unspecified; G82.22 Paraplegia, incomplete; E88.09 Other disorders of plasma-protein metabolism, not elsewhere classified

== ENCOUNTER → 2017-03-10 | Outpatient (REF) | payer MEDICARE, OTHER ==
[~2017-03-10] MED LIST changes: +COUM1TAB17 PO; +GABA-283 PO; +OXYC1TAB55 PO
[2017-03-10 15:10] LABS: INR 1.54
[2017-03-10 15:16] LABS: MEAN CORPUSCULAR HEMOGLOBIN 31.4 pg (27.0-33.0); MEAN CORPUSCULAR VOLUME 92.5 fl (80.0-96.0); RED CELL DISTRIBUTION WIDTH 18.1 % (11.5-14.5); WHITE BLOOD COUNT 5.8 K/mm3 (4.0-10.0)
[2017-03-10 15:29] LABS: ALBUMIN 1.9 GM/DL (3.2-5.2); ALBUMIN/GLOBULIN RATIO 0.4 (1.00-1.93); BILIRUBIN,TOTAL 1.3 MG/DL (0.2-1.0); CALCIUM LEVEL 9.1 MG/DL (8.8-10.2); CREATININE FOR GFR 1.42 MG/DL (0.70-1.30); GLOMERULAR FILTRATION RATE 50.9 (>35); POTASSIUM SERUM 3.7 MEQ/L (3.5-5.1); TOTAL PROTEIN 6.7 GM/DL (6.4-8.2)
[2017-03-10 15:57] LABS: ANISOCYTOSIS 2+; BASOPHILS 2 % (0-4); EOSINOPHILS 5 % (0-5)
== END ==
LOC: M LAB REF 14:48
PROVIDERS: ATTEND Physician Assistant Medical
DX: M46.46 Discitis, unspecified, lumbar region (principal); I48.91 Unspecified atrial fibrillation

== ENCOUNTER → 2017-03-13 | Outpatient (REF) | payer MEDICARE, OTHER ==
[2017-03-13 11:50] LABS: INR 1.78
== END ==
LOC: M SHH 11:19
PROVIDERS: ATTEND Physician Assistant Medical
DX: I48.91 Unspecified atrial fibrillation (principal)

== ENCOUNTER → 2017-03-16 | Outpatient (REF) | payer MEDICARE, OTHER ==
[2017-03-16 15:29] LABS: INR 1.7
== END ==
LOC: M LAB REF 14:49
PROVIDERS: ATTEND Physician Assistant Medical
DX: I48.91 Unspecified atrial fibrillation (principal)

== ENCOUNTER → 2017-03-20 | Outpatient (REF) | payer MEDICARE, OTHER ==
[2017-03-20 12:46] LABS: INR 1.64
== END ==
LOC: M LAB REF 12:19
PROVIDERS: ATTEND Physician Assistant Medical
DX: I48.91 Unspecified atrial fibrillation (principal)

== ENCOUNTER → 2017-03-23 | Outpatient (REF) | payer MEDICARE, OTHER ==
[2017-03-23 14:51] LABS: INR 1.69
== END ==
LOC: M SHH 14:14
PROVIDERS: ATTEND Physician Assistant Medical
DX: I48.91 Unspecified atrial fibrillation (principal)

== ENCOUNTER → 2017-03-26 | Outpatient (REF) | payer MEDICARE, OTHER ==
[2017-03-26 14:41] LABS: BASO # 0.1 K/mm3 (0.0-0.2); BASO % 0.8 % (0.0-1.0); EOS # 0.3 K/mm3 (0.0-0.50); EOS % 3.9 % (0.0-3.0); LARGE UNSTAINED CELL # 0.1 K/mm3 (0.0-0.4); LARGE UNSTAINED CELL % 1.9 % (0.0-4.0); LYMPH # 1.2 K/mm3 (1.5-4.5); LYMPH % 16.5 % (24.0-44.0); MEAN CORPUSCULAR HGB CONC 32.1 g/dl (32.0-36.5); MEAN CORPUSCULAR VOLUME 93.4 fl (80.0-96.0); MONO # 0.9 K/mm3 (0.0-0.8); MONO % 12.7 % (0.0-5.0); NEUTROPHILS # 4.3 K/mm3 (1.8-7.7); NEUTROPHILS % 64.2 % (36.0-66.0); PLATELET COUNT, AUTOMATED 380 k/mm3 (150-450); RED CELL DISTRIBUTION WIDTH 18.1 % (11.5-14.5); WHITE BLOOD COUNT 6.7 K/mm3 (4.0-10.0)
[2017-03-26 15:07] LABS: ALKALINE PHOSPHATASE 73 U/L (45-117); ALT/SGPT 7 U/L (12-78); ANION GAP 9 MEQ/L (8-16); AST/SGOT 9 U/L (15-37); BLOOD UREA NITROGEN 17 MG/DL (7-18); CALCIUM LEVEL 8.6 MG/DL (8.8-10.2); CARBON DIOXIDE LEVEL 30 MEQ/L (21-32); CHLORIDE LEVEL 104 MEQ/L (98-107); CREATININE FOR GFR 1.05 MG/DL (0.70-1.30); GLOMERULAR FILTRATION RATE > 60.0 (>35); GLUCOSE, FASTING 99 MG/DL (83-110); POTASSIUM SERUM 3.9 MEQ/L (3.5-5.1); SODIUM LEVEL 143 MEQ/L (136-145)
[2017-03-26 15:08] LABS: ALBUMIN 2.1 GM/DL (3.2-5.2); ALBUMIN/GLOBULIN RATIO 0.45 (1.00-1.93); BILIRUBIN,TOTAL 1.2 MG/DL (0.2-1.0); TOTAL PROTEIN 6.8 GM/DL (6.4-8.2)
[2017-03-26 15:25] LABS: ERYTHROCYTE SEDIMENTATION RATE 125 mm/hr (0-20)
== END ==
LOC: M LAB REF 13:33
PROVIDERS: ATTEND Internal Medicine Infectious Disease
DX: M46.47 Discitis, unspecified, lumbosacral region (principal); A41.9 Sepsis, unspecified organism

== ENCOUNTER → 2017-03-27 | Outpatient (REF) | payer MEDICARE, OTHER ==
[2017-03-27 12:18] LABS: INR 1.39
== END ==
LOC: M SHH 11:21
PROVIDERS: ATTEND Physician Assistant Medical
DX: I48.91 Unspecified atrial fibrillation (principal)

== ENCOUNTER → 2017-03-30 | Outpatient (REF) | payer MEDICARE, OTHER ==
[2017-03-30 12:56] LABS: INR 1.25
== END ==
LOC: M SHH 12:25
PROVIDERS: ATTEND Physician Assistant Medical
DX: I48.91 Unspecified atrial fibrillation (principal); Z51.81 Encounter for therapeutic drug level monitoring; Z79.01 Long term (current) use of anticoagulants; A49.01 Methicillin susceptible Staphylococcus aureus infection, unspecified site; M46.47 Discitis, unspecified, lumbosacral region

== ENCOUNTER → 2017-03-30 | Outpatient (REF) | payer MEDICARE, OTHER ==
[2017-03-30 13:07] LABS: BASO % 0.6 % (0.0-1.0); EOS # 0.2 K/mm3 (0.0-0.50); LARGE UNSTAINED CELL # 0.1 K/mm3 (0.0-0.4); LARGE UNSTAINED CELL % 1.8 % (0.0-4.0); LYMPH # 1.1 K/mm3 (1.5-4.5); LYMPH % 16.6 % (24.0-44.0); MEAN CORPUSCULAR HEMOGLOBIN 30.7 pg (27.0-33.0); MEAN CORPUSCULAR HGB CONC 31.5 g/dl (32.0-36.5); MEAN CORPUSCULAR VOLUME 97.4 fl (80.0-96.0); MONO # 0.6 K/mm3 (0.0-0.8); MONO % 8.5 % (0.0-5.0); NEUTROPHILS # 4.7 K/mm3 (1.8-7.7); NEUTROPHILS % 69.5 % (36.0-66.0); PLATELET COUNT, AUTOMATED 339 k/mm3 (150-450); RED CELL DISTRIBUTION WIDTH 17.6 % (11.5-14.5); WHITE BLOOD COUNT 6.8 K/mm3 (4.0-10.0)
[2017-03-30 13:45] LABS: ERYTHROCYTE SEDIMENTATION RATE 106 mm/hr (0-20)
[2017-03-30 14:07] LABS: ALBUMIN 2.2 GM/DL (3.2-5.2); ALBUMIN/GLOBULIN RATIO 0.46 (1.00-1.93); ALKALINE PHOSPHATASE 89 U/L (45-117); ALT/SGPT 10 U/L (12-78); ANION GAP 10 MEQ/L (8-16); AST/SGOT 17 U/L (15-37); BLOOD UREA NITROGEN 21 MG/DL (7-18); CALCIUM LEVEL 9.4 MG/DL (8.8-10.2); CARBON DIOXIDE LEVEL 27 MEQ/L (21-32); CHLORIDE LEVEL 104 MEQ/L (98-107); CREATININE FOR GFR 1.01 MG/DL (0.70-1.30); GLOMERULAR FILTRATION RATE > 60.0 (>35); GLUCOSE, FASTING 146 MG/DL (83-110); SODIUM LEVEL 141 MEQ/L (136-145)
== END ==
LOC: M SHH 12:24
PROVIDERS: ATTEND Internal Medicine Infectious Disease
DX: A49.01 Methicillin susceptible Staphylococcus aureus infection, unspecified site (principal); M46.47 Discitis, unspecified, lumbosacral region

== ENCOUNTER → 2017-04-16 | Outpatient (REF) | payer MEDICARE, OTHER ==
[2017-04-16 13:13] LABS: BASO % 0.4 % (0.0-1.0); EOS # 0.3 K/mm3 (0.0-0.50); EOS % 3.6 % (0.0-3.0); LARGE UNSTAINED CELL # 0.2 K/mm3 (0.0-0.4); LARGE UNSTAINED CELL % 1.9 % (0.0-4.0); LYMPH # 1.4 K/mm3 (1.5-4.5); LYMPH % 14.9 % (24.0-44.0); MEAN CORPUSCULAR HEMOGLOBIN 30.9 pg (27.0-33.0); MEAN CORPUSCULAR VOLUME 93.6 fl (80.0-96.0); MONO # 0.8 K/mm3 (0.0-0.8); MONO % 9.6 % (0.0-5.0); NEUTROPHILS # 5.8 K/mm3 (1.8-7.7); NEUTROPHILS % 69.6 % (36.0-66.0); PLATELET COUNT, AUTOMATED 338 k/mm3 (150-450); RED CELL DISTRIBUTION WIDTH 16.1 % (11.5-14.5); WHITE BLOOD COUNT 8.3 K/mm3 (4.0-10.0)
[2017-04-16 13:30] LABS: ALBUMIN 2.8 GM/DL (3.2-5.2); ALKALINE PHOSPHATASE 136 U/L (45-117); ALT/SGPT 14 U/L (12-78); ANION GAP 8 MEQ/L (8-16); AST/SGOT 12 U/L (15-37); BILIRUBIN,TOTAL 0.7 MG/DL (0.2-1.0); BLOOD UREA NITROGEN 19 MG/DL (7-18); CALCIUM LEVEL 9.7 MG/DL (8.8-10.2); CARBON DIOXIDE LEVEL 29 MEQ/L (21-32); CHLORIDE LEVEL 100 MEQ/L (98-107); CREATININE FOR GFR 1.08 MG/DL (0.70-1.30); GLOMERULAR FILTRATION RATE > 60.0 (>35); GLUCOSE, FASTING 106 MG/DL (83-110); POTASSIUM SERUM 4.6 MEQ/L (3.5-5.1); SODIUM LEVEL 137 MEQ/L (136-145); TOTAL PROTEIN 7.5 GM/DL (6.4-8.2)
[2017-04-16 14:08] LABS: ERYTHROCYTE SEDIMENTATION RATE 83 mm/hr (0-20)
== END ==
LOC: M LABDRAW1 12:48
PROVIDERS: ATTEND Internal Medicine Infectious Disease
DX: M46.47 Discitis, unspecified, lumbosacral region (principal)

== ENCOUNTER → 2017-04-24 | Outpatient (CLI) | payer MEDICARE, OTHER ==
[~2017-04-24] MED LIST changes: +ISOVUE-370 76% 100ML VIAL (Q9967) As Ordered ONE
--- NOTE | 2017-04-24 18:57 | REP ---
CT of the chest with IV contrast: Comparisons are 01/29/2017, 11/03/2016 and 04/10/2016. The patient has a right lower lobectomy for lung carcinoma. There are numerous lung nodules bilaterally. All of these slightly increased size from 03/21/2016. No new lung nodules are identified except for a new mass-like density along the inferior margin of the minor fissure on the right, not present previously. This may be a focal loculated pleural fluid collection, on image 51. No definite new lung nodules are identified. There is a surgical staple line in the right upper lobe of posterior laterally, unchanged. There are numerous bulla throughout the lung more bilaterally compatible with bullous emphysema, unchanged. The bilateral pleural effusions identified on 01/29/2017 have significantly decreased and are almost entirely resolved. Calcific pleural plaque is again noted bilaterally. There is mediastinal and bilateral hilar adenopathy not significantly changed. There is no adrenal mass. The visualized hepatic parenchyma is homogeneous. The visualized upper abdominal contents are otherwise unremarkable. Impression: There is a new mass-like density along the inferior margin of the minor fissure, possibly loculated pleural fluid. There are multiple lung nodules, not significantly changed in number but increasing in size. There is mediastinal and bilateral hilar adenopathy not significantly changed. The bilateral pleural effusions identified on 01/30/2016 have significantly decreased in almost entirely resolved. There is calcific pleural plaque, unchanged. Signed by Bernardo Solares MD 04/24/2017 06:48 P
== END ==
LOC: M RAD 15:57
PROVIDERS: ATTEND Physician Assistant Medical
DX: R91.1 Solitary pulmonary nodule (principal)
CPT/HCPCS: 71260; Q9967

== ENCOUNTER → 2017-05-01 | Outpatient (REF) | payer MEDICARE, OTHER ==
[~2017-05-01] MED LIST changes: -ISOVUE-370 76% 100ML VIAL (Q9967) As Ordered ONE
[2017-05-01 18:28] LABS: BASO % 0.5 % (0.0-1.0); EOS # 0.3 K/mm3 (0.0-0.50); EOS % 3.5 % (0.0-3.0); LARGE UNSTAINED CELL # 0.2 K/mm3 (0.0-0.4); LARGE UNSTAINED CELL % 2.2 % (0.0-4.0); LYMPH # 1.5 K/mm3 (1.5-4.5); LYMPH % 16.7 % (24.0-44.0); MEAN CORPUSCULAR HEMOGLOBIN 30.7 pg (27.0-33.0); MEAN CORPUSCULAR HGB CONC 32.8 g/dl (32.0-36.5); MEAN CORPUSCULAR VOLUME 93.5 fl (80.0-96.0); MONO # 0.9 K/mm3 (0.0-0.8); MONO % 10.5 % (0.0-5.0); NEUTROPHILS # 5.9 K/mm3 (1.8-7.7); NEUTROPHILS % 66.6 % (36.0-66.0); PLATELET COUNT, AUTOMATED 368 k/mm3 (150-450); WHITE BLOOD COUNT 8.9 K/mm3 (4.0-10.0)
[2017-05-01 18:42] LABS: ALBUMIN 2.9 GM/DL (3.2-5.2); ALBUMIN/GLOBULIN RATIO 0.67 (1.00-1.93); ALKALINE PHOSPHATASE 140 U/L (45-117); ALT/SGPT 19 U/L (12-78); ANION GAP 9 MEQ/L (8-16); AST/SGOT 12 U/L (15-37); BILIRUBIN,TOTAL 0.4 MG/DL (0.2-1.0); BLOOD UREA NITROGEN 28 MG/DL (7-18); CARBON DIOXIDE LEVEL 26 MEQ/L (21-32); CHLORIDE LEVEL 102 MEQ/L (98-107); CREATININE FOR GFR 1.02 MG/DL (0.70-1.30); GLOMERULAR FILTRATION RATE > 60.0 (>35); GLUCOSE, FASTING 113 MG/DL (83-110); SODIUM LEVEL 137 MEQ/L (136-145); TOTAL PROTEIN 7.2 GM/DL (6.4-8.2)
[2017-05-01 19:25] LABS: ERYTHROCYTE SEDIMENTATION RATE 90 mm/hr (0-20)
== END ==
LOC: M LABDRAW1 17:05
PROVIDERS: ATTEND Internal Medicine Infectious Disease
DX: M46.47 Discitis, unspecified, lumbosacral region (principal)

== ENCOUNTER → 2017-05-12 | Outpatient (REF) | payer MEDICARE, OTHER | LOC: M LAB REF 12:25 | PROVIDERS: ATTEND Surgery | DX: D48.5 Neoplasm of uncertain behavior of skin (principal) ==

== ENCOUNTER → 2017-05-21 | Outpatient (REF) | payer MEDICARE, OTHER ==
[~2017-05-21] MED LIST changes: +NAFC1INJ IV; +OXYC-403 PO; -OXYC1TAB55 PO; -PROA1AER INH; +PROAAER10 INH; -[UNRECOGNIZED DRUG - CODE] IV
[2017-05-21 15:57] LABS: ALBUMIN/GLOBULIN RATIO 0.77 (1.00-1.93); ALKALINE PHOSPHATASE 142 U/L (45-117); ALT/SGPT 19 U/L (12-78); ANION GAP 9 MEQ/L (8-16); AST/SGOT 12 U/L (15-37); BASO # 0.1 K/mm3 (0.0-0.2); BASO % 0.6 % (0.0-1.0); BILIRUBIN,TOTAL 0.4 MG/DL (0.2-1.0); BLOOD UREA NITROGEN 19 MG/DL (7-18); CARBON DIOXIDE LEVEL 27 MEQ/L (21-32); CHLORIDE LEVEL 104 MEQ/L (98-107); CREATININE FOR GFR 1.12 MG/DL (0.70-1.30); EOS # 0.2 K/mm3 (0.0-0.50); EOS % 1.9 % (0.0-3.0); GLOMERULAR FILTRATION RATE > 60.0 (>35); GLUCOSE, FASTING 106 MG/DL (83-110); LARGE UNSTAINED CELL # 0.2 K/mm3 (0.0-0.4); LYMPH # 1.4 K/mm3 (1.5-4.5); LYMPH % 13.8 % (24.0-44.0); MEAN CORPUSCULAR HEMOGLOBIN 30.5 pg (27.0-33.0); MEAN CORPUSCULAR HGB CONC 33.2 g/dl (32.0-36.5); MONO # 1.1 K/mm3 (0.0-0.8); MONO % 10.9 % (0.0-5.0); NEUTROPHILS # 7.1 K/mm3 (1.8-7.7); NEUTROPHILS % 70.8 % (36.0-66.0); PLATELET COUNT, AUTOMATED 370 k/mm3 (150-450); POTASSIUM SERUM 4.5 MEQ/L (3.5-5.1); RED CELL DISTRIBUTION WIDTH 14.7 % (11.5-14.5); SODIUM LEVEL 140 MEQ/L (136-145); TOTAL PROTEIN 6.9 GM/DL (6.4-8.2)
[2017-05-21 21:30] LABS: ERYTHROCYTE SEDIMENTATION RATE 91 mm/hr (0-20)
== END ==
LOC: M LABDRAW1 13:27
PROVIDERS: ATTEND Internal Medicine Infectious Disease
DX: M46.47 Discitis, unspecified, lumbosacral region (principal)

== ENCOUNTER → 2017-06-04 | Outpatient (CLI) | payer MEDICARE, OTHER ==
--- NOTE | 2017-06-04 11:41 | REP ---
CT LUMBAR SPINE WITHOUT CONTRAST: HISTORY: Spondylosis. COMPARISON: CT 12/17/2016 and MR 01/28/2017. A diffuse disc bulge is present at the L1-2 level. There is destruction of the endplates of the L1 and 2 vertebral bodies adjacent to the L1-2 intervertebral disc. The L1-2 intervertebral disc is decreased in height. 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 There is mild loss of vertebral body height at the L2 level. This has progressed compared to the previous study. A small paravertebral soft tissue component is present that is decreased compared to the previous study. There is no definite epidural soft tissue component. There is mild compression of the thecal sac. There is compression of the L1 nerves in the neural foramina. A diffuse disc bugle is present at the L2-3 level. There is mild compression of the thecal sac. There is hypertrophy of the posterior articulating facets. There is compression of the L2 nerves in the neural foramina. A diffuse disc bulge is present at the L3-4 level. There is hypertrophy of the ligamenta flava and posterior articulating facets. These findings produce moderate central canal stenosis. The L3 nerves exit the neural foramina without compression. A diffuse disc bugle is present at the L4-5 level. There is hypertrophy of the ligamenta flava and posterior articulating facets. These findings produce moderate central canal stenosis. The L4 nerves exit the neural foramina without compression. A diffuse disc bugle is present at the L5-S1 level. This abuts the thecal sac. There is hypertrophy of the posterior articulating facets. The L5 nerves exit the neural foramina without compression. The L1-2 through L5-S1 intervertebral discs are decreased in height. Vacuum phenomenon is present at the L2-3, L3-4, and L5-S1 levels. These findings are consistent with disc degeneration. There is no subluxation. IMPRESSION: 1. 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 There has been further loss of L2 vertebral body height. A diffuse disc bulge is present. There is mild compression of the thecal sac. There is no definite epidural soft tissue component. 2. Diffuse disc bugle at the L2-3 level with mild thecal sac compression. There is compression of the L2 nerves in the neural foramina. 3. Moderate central canal stenosis at the L3-4 and L4-5 levels secondary to disc bulge ligamentous and facet hypertrophy. 4. Diffuse disc bulge at the L5-S1 level. This abuts the thecal sac. There is no other significant change. Signed by Jeovanny Meier MD 06/04/2017 11:46 A
== END ==
LOC: M RAD 10:05
PROVIDERS: ATTEND Neurological Surgery
DX: M54.2 Cervicalgia (principal)

== ENCOUNTER → 2017-06-26 | Outpatient (REF) | payer MEDICARE, OTHER ==
[2017-06-26 17:55] LABS: BASO % 0.5 % (0.0-1.0); EOS # 0.3 K/mm3 (0.0-0.50); EOS % 3.3 % (0.0-3.0); LARGE UNSTAINED CELL # 0.1 K/mm3 (0.0-0.4); LARGE UNSTAINED CELL % 1.4 % (0.0-4.0); LYMPH # 1.3 K/mm3 (1.5-4.5); LYMPH % 15.4 % (24.0-44.0); MEAN CORPUSCULAR HEMOGLOBIN 29.2 pg (27.0-33.0); MEAN CORPUSCULAR HGB CONC 32.2 g/dl (32.0-36.5); MEAN CORPUSCULAR VOLUME 90.7 fl (80.0-96.0); MONO # 0.9 K/mm3 (0.0-0.8); MONO % 11.4 % (0.0-5.0); NEUTROPHILS # 5.3 K/mm3 (1.8-7.7); PLATELET COUNT, AUTOMATED 348 k/mm3 (150-450); RED CELL DISTRIBUTION WIDTH 14.6 % (11.5-14.5); WHITE BLOOD COUNT 7.8 K/mm3 (4.0-10.0)
[2017-06-26 20:37] LABS: ERYTHROCYTE SEDIMENTATION RATE 83 mm/hr (0-20)
== END ==
LOC: M LABDRAW1 16:13
PROVIDERS: ATTEND Internal Medicine Infectious Disease
DX: M46.47 Discitis, unspecified, lumbosacral region (principal)

== ENCOUNTER → 2017-07-16 | Outpatient (REF) | payer MEDICARE, OTHER ==
[2017-07-16 21:42] LABS: BASO # 0.1 K/mm3 (0.0-0.2); BASO % 0.8 % (0.0-1.0); EOS # 0.3 K/mm3 (0.0-0.50); EOS % 3.5 % (0.0-3.0); LARGE UNSTAINED CELL # 0.2 K/mm3 (0.0-0.4); LARGE UNSTAINED CELL % 2.2 % (0.0-4.0); LYMPH # 1.4 K/mm3 (1.5-4.5); LYMPH % 15.5 % (24.0-44.0); MEAN CORPUSCULAR HEMOGLOBIN 29.3 pg (27.0-33.0); MEAN CORPUSCULAR HGB CONC 32.1 g/dl (32.0-36.5); MEAN CORPUSCULAR VOLUME 91.3 fl (80.0-96.0); MONO # 0.9 K/mm3 (0.0-0.8); NEUTROPHILS # 5.3 K/mm3 (1.8-7.7); PLATELET COUNT, AUTOMATED 337 k/mm3 (150-450); RED CELL DISTRIBUTION WIDTH 15.5 % (11.5-14.5); WHITE BLOOD COUNT 7.9 K/mm3 (4.0-10.0)
[2017-07-16 22:03] LABS: ERYTHROCYTE SEDIMENTATION RATE 66 mm/hr (0-20)
== END ==
LOC: M LABDRAW1 16:17
PROVIDERS: ATTEND Internal Medicine Infectious Disease
DX: M46.47 Discitis, unspecified, lumbosacral region (principal)

== ENCOUNTER → 2017-07-16 | Outpatient (REF) | payer MEDICARE, OTHER ==
[2017-07-16 20:01] LABS: MEAN CORPUSCULAR HEMOGLOBIN 29.2 pg (27.0-33.0); MEAN CORPUSCULAR HGB CONC 32.2 g/dl (32.0-36.5); MEAN CORPUSCULAR VOLUME 90.9 fl (80.0-96.0); RED CELL DISTRIBUTION WIDTH 15.5 % (11.5-14.5); WHITE BLOOD COUNT 7.8 K/mm3 (4.0-10.0)
[2017-07-16 20:24] LABS: PERCENT SATURATION 11.1 % (19.7-50.0)
== END ==
LOC: M LABDRAW1 16:18
PROVIDERS: ATTEND Nurse Practitioner Family
DX: I48.1 Persistent atrial fibrillation (principal); M46.47 Discitis, unspecified, lumbosacral region

== ENCOUNTER → 2017-07-28 | Outpatient (REF) | payer MEDICARE, OTHER ==
[2017-07-28 19:10] LABS: BASO % 0.5 % (0.0-1.0); EOS # 0.2 K/mm3 (0.0-0.50); EOS % 3.1 % (0.0-3.0); LYMPH # 1.2 K/mm3 (1.5-4.5); LYMPH % 15.5 % (24.0-44.0); MEAN CORPUSCULAR HGB CONC 31.7 g/dl (32.0-36.5); MEAN CORPUSCULAR VOLUME 91.3 fl (80.0-96.0); MONO # 0.8 K/mm3 (0.0-0.8); MONO % 11.3 % (0.0-5.0); NEUTROPHILS # 4.8 K/mm3 (1.8-7.7); NEUTROPHILS % 67.7 % (36.0-66.0); RED CELL DISTRIBUTION WIDTH 15.8 % (11.5-14.5); WHITE BLOOD COUNT 7.1 K/mm3 (4.0-10.0)
[2017-07-28 19:51] LABS: ALBUMIN 2.9 GM/DL (3.2-5.2); ALBUMIN/GLOBULIN RATIO 0.71 (1.00-1.93); ALKALINE PHOSPHATASE 117 U/L (45-117); ALT/SGPT 17 U/L (12-78); ANION GAP 9 MEQ/L (8-16); AST/SGOT 12 U/L (15-37); BILIRUBIN,TOTAL 0.4 MG/DL (0.2-1.0); BLOOD UREA NITROGEN 26 MG/DL (7-18); CARBON DIOXIDE LEVEL 27 MEQ/L (21-32); CHLORIDE LEVEL 105 MEQ/L (98-107); CREATININE FOR GFR 1.09 MG/DL (0.70-1.30); GLOMERULAR FILTRATION RATE > 60.0 (>35); GLUCOSE, FASTING 105 MG/DL (83-110); POTASSIUM SERUM 4.3 MEQ/L (3.5-5.1); SODIUM LEVEL 141 MEQ/L (136-145)
== END ==
LOC: M LABDRAW1 13:57
PROVIDERS: ATTEND Physician Assistant Medical
DX: C34.00 Malignant neoplasm of unspecified main bronchus (principal); F33.8 Other recurrent depressive disorders

== ENCOUNTER → 2017-07-31 | Outpatient (CLI) | payer MEDICARE, OTHER ==
[~2017-07-31] MED LIST changes: +ISOVUE-370 76% 100ML VIAL (Q9967) As Ordered ONE
--- NOTE | 2017-07-31 11:45 | REP ---
Clinical: Lung cancer for follow up. Technique: Axial contrast enhanced images from the thoracic inlet to the upper abdomen using 100 ml Isovue 370 intravenous contrast material with coronal and sagittal re-formations. Comparison: 04/24/2017. Findings: Chronic moderate emphysematous disease and interstitial changes along with bronchiectasis, scattered scarring, partially calcified pleural plaques and evidence for prior right lobectomy are again appreciated. There is evidence for new, somewhat nodular pleural thickening along the superior portion of the left major fissure. Biapical nodular scarring (left greater than right), and scattered bilateral noncalcified pulmonary nodules remain essentially unchanged in both size and quantity. The scarring associated with the right minor fissure as well as the small amount of presumed loculated fluid remain stable. Evaluation of the mediastinum demonstrates stable hilar and mediastinal adenopathy along with atherosclerotic changes to the thoracic aorta and coronary arteries and mild cardiomegaly. No pericardial effusion. Surrounding musculoskeletal structures demonstrate degenerative changes without focal osseous abnormality. Limited evaluation of the upper abdomen demonstrates normal bilateral adrenal glands. Impression: 1. New finding of pleural thickening along the superior aspect of the left major fissure (images 15 - 35). 2. Bilateral noncalcified pulmonary nodules as well as the presumed trapped fluid in the right minor fissure remain stable in size and quantity. 3. Underlying chronic changes including evidence for emphysema, partially calcified pleural plaques, scarring related to right lobectomy and chronic interstitial changes remain stable. Signed by Shadi Mejia MD 07/31/2017 11:37 A
== END ==
LOC: M RAD 10:54
PROVIDERS: ATTEND Physician Assistant Medical
DX: R91.8 Other nonspecific abnormal finding of lung field (principal)
CPT/HCPCS: 71260; Q9967

== ENCOUNTER → 2017-11-02 | Outpatient (REF) | payer MEDICARE, OTHER ==
[~2017-11-02] MED LIST changes: -ISOVUE-370 76% 100ML VIAL (Q9967) As Ordered ONE
[2017-11-02 14:06] LABS: BASO # 0.1 10^3/uL (0.0-0.2); BASO % 0.5 % (0.0-1.0); EOS # 0.2 10^3/uL (0.0-0.50); EOS % 2.4 % (0.0-3.0); IMMATURE GRANULOCYTE % 0.5 % (0-0); LYMPH # 1.1 10^3/uL (1.5-4.5); LYMPH % 11.9 % (24.0-44.0); MEAN CORPUSCULAR HEMOGLOBIN 30.1 pg (27.0-33.0); MEAN CORPUSCULAR HGB CONC 31.8 g/dl (32.0-36.5); MEAN CORPUSCULAR VOLUME 94.6 fl (80.0-96.0); MONO # 1.4 10^3/uL (0.0-0.8); NEUTROPHILS # 6.5 10^3/uL (1.8-7.7); NEUTROPHILS % 69.7 % (36.0-66.0); PLATELET COUNT, AUTOMATED 313 10^3/uL (150-450); RED CELL DISTRIBUTION WIDTH 15.3 % (11.5-14.5); WHITE BLOOD COUNT 9.3 10^3/uL (4.0-10.0)
[2017-11-02 14:27] LABS: ERYTHROCYTE SEDIMENTATION RATE 65 mm/hr (0-20)
== END ==
LOC: M SFHCPLAZ 10:46
PROVIDERS: ATTEND Internal Medicine Infectious Disease
DX: M46.47 Discitis, unspecified, lumbosacral region (principal)

== ENCOUNTER → 2017-12-07 | Outpatient (REF) | payer MEDICARE, OTHER ==
[2017-12-07 15:41] LABS: BASO % 0.4 % (0.0-1.0); EOS # 0.1 10^3/uL (0.0-0.50); EOS % 1.9 % (0.0-3.0); HEMATOCRIT 37.1 % (42.0-52.0); HEMOGLOBIN 11.8 g/dl (14.0-18.0); IMMATURE GRANULOCYTE % 0.4 % (0-0); LYMPH # 1.2 10^3/uL (1.5-4.5); LYMPH % 18.3 % (24.0-44.0); MEAN CORPUSCULAR HEMOGLOBIN 29.5 pg (27.0-33.0); MEAN CORPUSCULAR HGB CONC 31.8 g/dl (32.0-36.5); MEAN CORPUSCULAR VOLUME 92.8 fl (80.0-96.0); MONO # 0.8 10^3/uL (0.0-0.8); MONO % 12.1 % (0.0-5.0); NEUTROPHILS # 4.5 10^3/uL (1.8-7.7); NEUTROPHILS % 66.9 % (36.0-66.0); PLATELET COUNT, AUTOMATED 293 10^3/uL (150-450); RED CELL DISTRIBUTION WIDTH 13.4 % (11.5-14.5); WHITE BLOOD COUNT 6.7 10^3/uL (4.0-10.0)
[2017-12-07 15:59] LABS: ERYTHROCYTE SEDIMENTATION RATE 80 mm/hr (0-20)
== END ==
LOC: M LABDRAW1 13:45
DX: M46.47 Discitis, unspecified, lumbosacral region (principal)
CPT/HCPCS: 86140

== ENCOUNTER → 2018-01-11 | Outpatient (REF) | payer MEDICARE, OTHER ==
[2018-01-11 15:51] LABS: BASO % 0.5 % (0.0-1.0); EOS # 0.2 10^3/uL (0.0-0.50); EOS % 2.8 % (0.0-3.0); HEMATOCRIT 37.1 % (42.0-52.0); HEMOGLOBIN 11.9 g/dl (14.0-18.0); IMMATURE GRANULOCYTE % 0.5 % (0-3.0); LYMPH # 1.4 10^3/uL (1.5-4.5); MEAN CORPUSCULAR HEMOGLOBIN 29.6 pg (27.0-33.0); MEAN CORPUSCULAR HGB CONC 32.1 g/dl (32.0-36.5); MEAN CORPUSCULAR VOLUME 92.3 fl (80.0-96.0); MONO # 1.2 10^3/uL (0.0-0.8); MONO % 14.4 % (0.0-5.0); NEUTROPHILS # 5.6 10^3/uL (1.8-7.7); NEUTROPHILS % 65.8 % (36.0-66.0); PLATELET COUNT, AUTOMATED 333 10^3/uL (150-450); RED BLOOD COUNT 4.02 10^6/uL (4.30-6.10); RED CELL DISTRIBUTION WIDTH 14.4 % (11.5-14.5); WHITE BLOOD COUNT 8.5 10^3/uL (4.0-10.0)
[2018-01-11 16:08] LABS: C REACTIVE PROTEIN QUANTITATIV 3.33 MG/DL (0.00-0.30)
[2018-01-11 16:24] LABS: ERYTHROCYTE SEDIMENTATION RATE 69 mm/hr (0-20)
== END ==
LOC: M LABDRAW1 15:37
DX: M46.47 Discitis, unspecified, lumbosacral region (principal)
CPT/HCPCS: 86140

== ENCOUNTER → 2018-03-05 | Outpatient (CLI) | payer MEDICARE, OTHER | LOC: M RAD 10:10 | DX: R91.1 Solitary pulmonary nodule (principal) | CPT/HCPCS: 71250 ==

== ENCOUNTER → 2018-03-10 | Outpatient (REF) | payer MEDICARE, OTHER ==
[2018-03-10 16:01] LABS: BASO % 0.4 % (0.0-1.0); EOS # 0.2 10^3/uL (0.0-0.50); HEMATOCRIT 41.7 % (42.0-52.0); HEMOGLOBIN 13.2 g/dl (13.5-17.5); IMMATURE GRANULOCYTE % 1.2 % (0-3.0); LYMPH # 1.6 10^3/uL (1.5-4.5); LYMPH % 16.2 % (24.0-44.0); MEAN CORPUSCULAR HGB CONC 31.7 g/dl (32.0-36.5); MEAN CORPUSCULAR VOLUME 91.6 fl (80.0-96.0); MONO % 10.2 % (0.0-5.0); NEUTROPHILS # 6.9 10^3/uL (1.8-7.7); PLATELET COUNT, AUTOMATED 242 10^3/uL (150-450); RED BLOOD COUNT 4.55 10^6/uL (4.30-6.10); RED CELL DISTRIBUTION WIDTH 15.5 % (11.5-14.5); WHITE BLOOD COUNT 9.8 10^3/uL (4.0-10.0)
[2018-03-10 16:10] LABS: C REACTIVE PROTEIN QUANTITATIV < 0.30 MG/DL (0.00-0.30)
[2018-03-10 17:00] LABS: ERYTHROCYTE SEDIMENTATION RATE 29 mm/hr (0-20)
== END ==
LOC: M LABDRAW1 14:45
DX: M46.47 Discitis, unspecified, lumbosacral region (principal)
CPT/HCPCS: 86140

== ENCOUNTER → 2018-03-12 | Outpatient (REF) | payer MEDICARE, OTHER ==
[2018-03-12 14:12] LABS: BASO % 0.3 % (0.0-1.0); EOS # 0.3 10^3/uL (0.0-0.50); EOS % 2.4 % (0.0-3.0); HEMATOCRIT 43.2 % (42.0-52.0); HEMOGLOBIN 13.8 g/dl (13.5-17.5); IMMATURE GRANULOCYTE % 0.6 % (0-3.0); LYMPH # 1.9 10^3/uL (1.5-4.5); LYMPH % 14.7 % (24.0-44.0); MEAN CORPUSCULAR HEMOGLOBIN 29.3 pg (27.0-33.0); MEAN CORPUSCULAR HGB CONC 31.9 g/dl (32.0-36.5); MEAN CORPUSCULAR VOLUME 91.7 fl (80.0-96.0); MONO # 1.3 10^3/uL (0.0-0.8); NEUTROPHILS # 9.2 10^3/uL (1.8-7.7); PLATELET COUNT, AUTOMATED 273 10^3/uL (150-450); RED BLOOD COUNT 4.71 10^6/uL (4.30-6.10); RED CELL DISTRIBUTION WIDTH 15.5 % (11.5-14.5); WHITE BLOOD COUNT 12.8 10^3/uL (4.0-10.0)
[2018-03-12 14:35] LABS: ALBUMIN 3.3 GM/DL (3.2-5.2); ALBUMIN/GLOBULIN RATIO 0.87 (1.00-1.93); ALKALINE PHOSPHATASE 109 U/L (45-117); ALT/SGPT 25 U/L (12-78); ANION GAP 6 MEQ/L (8-16); AST/SGOT 12 U/L (7-37); BILIRUBIN,TOTAL 0.5 MG/DL (0.2-1.0); BLOOD UREA NITROGEN 23 MG/DL (7-18); CALCIUM LEVEL 8.7 MG/DL (8.8-10.2); CARBON DIOXIDE LEVEL 31 MEQ/L (21-32); CHLORIDE LEVEL 106 MEQ/L (98-107); CHOLESTEROL LEVEL 176 MG/DL (<200); CREATININE FOR GFR 0.97 MG/DL (0.70-1.30); FREE T4 0.94 NG/DL (0.76-1.46); GLOMERULAR FILTRATION RATE > 60.0 (>35); GLUCOSE, FASTING 91 MG/DL (70-100); HDL CHOLESTEROL 64 MG/DL (>40); LDL CHOLESTEROL 101.2 MG/DL (<100); NON-HDL-C 112 MG/DL; POTASSIUM SERUM 4.9 MEQ/L (3.5-5.1); SODIUM LEVEL 143 MEQ/L (136-145); TOTAL PROTEIN 7.1 GM/DL (6.4-8.2); TRIGLYCERIDES LEVEL 54 MG/DL (<150)
[2018-03-12 15:13] LABS: TOTAL 25(OH) VITAMIN D 48.9 NG/ML (30.0-100.0)
== END ==
LOC: M SFHCSACK 09:13
DX: I10 Essential (primary) hypertension (principal); E55.9 Vitamin D deficiency, unspecified; Z13.220 Encounter for screening for lipoid disorders; Z83.49 Family history of other endocrine, nutritional and metabolic diseases
CPT/HCPCS: 84443

== ENCOUNTER → 2018-04-07 | Outpatient (REF) | payer MEDICARE, OTHER ==
[2018-04-07 15:42] LABS: BASO # 0.1 10^3/uL (0.0-0.2); BASO % 0.6 % (0.0-1.0); EOS # 0.2 10^3/uL (0.0-0.50); EOS % 2.1 % (0.0-3.0); HEMATOCRIT 42.6 % (42.0-52.0); HEMOGLOBIN 13.7 g/dl (13.5-17.5); IMMATURE GRANULOCYTE % 1.4 % (0-3.0); LYMPH # 1.4 10^3/uL (1.5-4.5); LYMPH % 16.9 % (24.0-44.0); MEAN CORPUSCULAR HEMOGLOBIN 29.8 pg (27.0-33.0); MEAN CORPUSCULAR HGB CONC 32.2 g/dl (32.0-36.5); MEAN CORPUSCULAR VOLUME 92.8 fl (80.0-96.0); MONO % 11.7 % (0.0-5.0); NEUTROPHILS # 5.5 10^3/uL (1.8-7.7); NEUTROPHILS % 67.3 % (36.0-66.0); PLATELET COUNT, AUTOMATED 255 10^3/uL (150-450); RED BLOOD COUNT 4.59 10^6/uL (4.30-6.10); RED CELL DISTRIBUTION WIDTH 16.5 % (11.5-14.5); WHITE BLOOD COUNT 8.1 10^3/uL (4.0-10.0)
[2018-04-07 16:08] LABS: TOTAL 25(OH) VITAMIN D 50.5 NG/ML (30.0-100.0)
[2018-04-07 16:28] LABS: ALBUMIN 3.2 GM/DL (3.2-5.2); ALBUMIN/GLOBULIN RATIO 0.84 (1.00-1.93); ALKALINE PHOSPHATASE 116 U/L (45-117); ALT/SGPT 25 U/L (12-78); ANION GAP 8 MEQ/L (8-16); AST/SGOT 15 U/L (7-37); BILIRUBIN,TOTAL 0.3 MG/DL (0.2-1.0); BLOOD UREA NITROGEN 20 MG/DL (7-18); CALCIUM LEVEL 8.6 MG/DL (8.8-10.2); CARBON DIOXIDE LEVEL 28 MEQ/L (21-32); CHLORIDE LEVEL 107 MEQ/L (98-107); CREATININE FOR GFR 1.12 MG/DL (0.70-1.30); FREE T4 0.88 NG/DL (0.76-1.46); GLOMERULAR FILTRATION RATE > 60.0 (>35); GLUCOSE, FASTING 128 MG/DL (70-100); POTASSIUM SERUM 4.2 MEQ/L (3.5-5.1); SODIUM LEVEL 143 MEQ/L (136-145)
== END ==
LOC: M LABDRAW1 11:54
DX: I10 Essential (primary) hypertension (principal); E78.00 Pure hypercholesterolemia, unspecified; E03.9 Hypothyroidism, unspecified; E55.9 Vitamin D deficiency, unspecified; M46.47 Discitis, unspecified, lumbosacral region; E66.09 Other obesity due to excess calories; Z68.32 Body mass index [BMI] 32.0-32.9, adult
CPT/HCPCS: 84443

== ENCOUNTER → 2018-04-07 | Outpatient (REF) | payer MEDICARE, OTHER ==
[2018-04-07 15:44] LABS: BASO # 0.1 10^3/uL (0.0-0.2); BASO % 0.6 % (0.0-1.0); EOS # 0.2 10^3/uL (0.0-0.50); EOS % 2.1 % (0.0-3.0); HEMATOCRIT 42.4 % (42.0-52.0); HEMOGLOBIN 13.8 g/dl (13.5-17.5); IMMATURE GRANULOCYTE % 1.1 % (0-3.0); LYMPH # 1.4 10^3/uL (1.5-4.5); LYMPH % 16.9 % (24.0-44.0); MEAN CORPUSCULAR HEMOGLOBIN 30.2 pg (27.0-33.0); MEAN CORPUSCULAR HGB CONC 32.5 g/dl (32.0-36.5); MEAN CORPUSCULAR VOLUME 92.8 fl (80.0-96.0); MONO % 12.2 % (0.0-5.0); NEUTROPHILS # 5.5 10^3/uL (1.8-7.7); NEUTROPHILS % 67.1 % (36.0-66.0); PLATELET COUNT, AUTOMATED 254 10^3/uL (150-450); RED BLOOD COUNT 4.57 10^6/uL (4.30-6.10); RED CELL DISTRIBUTION WIDTH 16.6 % (11.5-14.5); WHITE BLOOD COUNT 8.2 10^3/uL (4.0-10.0)
[2018-04-07 16:19] LABS: ERYTHROCYTE SEDIMENTATION RATE 49 mm/hr (0-20)
[2018-04-07 16:23] LABS: C REACTIVE PROTEIN QUANTITATIV 0.59 MG/DL (0.00-0.30)
== END ==
LOC: M LABDRAW1 11:52
DX: M46.47 Discitis, unspecified, lumbosacral region (principal)

== ENCOUNTER → 2018-04-23 | Outpatient (REF) | payer MEDICARE, OTHER ==
[2018-04-23 16:51] LABS: C REACTIVE PROTEIN QUANTITATIV 0.92 MG/DL (0.00-0.30)
[2018-04-23 16:53] LABS: BASO # 0.1 10^3/uL (0.0-0.2); BASO % 0.5 % (0.0-1.0); EOS # 0.2 10^3/uL (0.0-0.50); EOS % 2.2 % (0.0-3.0); HEMATOCRIT 42.2 % (42.0-52.0); HEMOGLOBIN 13.6 g/dl (13.5-17.5); IMMATURE GRANULOCYTE % 0.8 % (0-3.0); LYMPH # 1.4 10^3/uL (1.5-4.5); LYMPH % 14.3 % (24.0-44.0); MEAN CORPUSCULAR HEMOGLOBIN 30.5 pg (27.0-33.0); MEAN CORPUSCULAR HGB CONC 32.2 g/dl (32.0-36.5); MEAN CORPUSCULAR VOLUME 94.6 fl (80.0-96.0); MONO # 1.3 10^3/uL (0.0-0.8); MONO % 12.6 % (0.0-5.0); NEUTROPHILS # 6.9 10^3/uL (1.8-7.7); NEUTROPHILS % 69.6 % (36.0-66.0); PLATELET COUNT, AUTOMATED 277 10^3/uL (150-450); RED BLOOD COUNT 4.46 10^6/uL (4.30-6.10); RED CELL DISTRIBUTION WIDTH 16.5 % (11.5-14.5)
[2018-04-23 18:21] LABS: ERYTHROCYTE SEDIMENTATION RATE 60 mm/hr (0-20)
== END ==
LOC: M LABDRAW1 11:56
DX: M46.47 Discitis, unspecified, lumbosacral region (principal)
CPT/HCPCS: 86140

== ENCOUNTER → 2018-05-14 | Outpatient (REF) | payer MEDICARE, OTHER ==
[2018-05-14 16:01] LABS: CREATININE FOR GFR 1.11 MG/DL (0.70-1.30); GLOMERULAR FILTRATION RATE > 60.0 (>35)
[2018-05-14 16:01] LABS: BLOOD UREA NITROGEN 20 MG/DL (7-18)
== END ==
LOC: M LABDRAW1 14:15
DX: Z01.818 Encounter for other preprocedural examination (principal)
CPT/HCPCS: 82565

== ENCOUNTER → 2018-05-28 | Outpatient (REF) | payer MEDICARE, OTHER ==
[2018-05-28 14:44] LABS: BASO % 0.5 % (0.0-1.0); EOS # 0.2 10^3/uL (0.0-0.50); EOS % 2.5 % (0.0-3.0); HEMATOCRIT 42.9 % (42.0-52.0); HEMOGLOBIN 14.2 g/dl (13.5-17.5); IMMATURE GRANULOCYTE % 1.5 % (0-3.0); LYMPH # 1.4 10^3/uL (1.5-4.5); LYMPH % 16.1 % (24.0-44.0); MEAN CORPUSCULAR HEMOGLOBIN 31.4 pg (27.0-33.0); MEAN CORPUSCULAR HGB CONC 33.1 g/dl (32.0-36.5); MEAN CORPUSCULAR VOLUME 94.9 fl (80.0-96.0); MONO # 0.9 10^3/uL (0.0-0.8); MONO % 10.2 % (0.0-5.0); NEUTROPHILS # 5.9 10^3/uL (1.8-7.7); NEUTROPHILS % 69.2 % (36.0-66.0); PLATELET COUNT, AUTOMATED 225 10^3/uL (150-450); RED BLOOD COUNT 4.52 10^6/uL (4.30-6.10); RED CELL DISTRIBUTION WIDTH 15.9 % (11.5-14.5); WHITE BLOOD COUNT 8.6 10^3/uL (4.0-10.0)
[2018-05-28 14:56] LABS: C REACTIVE PROTEIN QUANTITATIV < 0.30 MG/DL (0.00-0.30)
[2018-05-28 15:22] LABS: ERYTHROCYTE SEDIMENTATION RATE 40 mm/hr (0-20)
== END ==
LOC: M LABDRAW1 13:09
DX: M46.47 Discitis, unspecified, lumbosacral region (principal)
CPT/HCPCS: 86140

== ENCOUNTER → 2018-07-07 | Outpatient (REF) | payer MEDICARE, OTHER ==
[2018-07-07 15:43] LABS: BASO % 0.4 % (0.0-1.0); EOS # 0.2 10^3/uL (0.0-0.50); EOS % 2.7 % (0.0-3.0); HEMATOCRIT 39.6 % (42.0-52.0); IMMATURE GRANULOCYTE % 0.8 % (0-3.0); LYMPH % 14.6 % (24.0-44.0); MEAN CORPUSCULAR HEMOGLOBIN 32.1 pg (27.0-33.0); MEAN CORPUSCULAR HGB CONC 32.8 g/dl (32.0-36.5); MEAN CORPUSCULAR VOLUME 97.8 fl (80.0-96.0); MONO # 0.9 10^3/uL (0.0-0.8); MONO % 13.2 % (0.0-5.0); NEUTROPHILS # 4.8 10^3/uL (1.8-7.7); NEUTROPHILS % 68.3 % (36.0-66.0); PLATELET COUNT, AUTOMATED 288 10^3/uL (150-450); RED BLOOD COUNT 4.05 10^6/uL (4.30-6.10); RED CELL DISTRIBUTION WIDTH 14.1 % (11.5-14.5); WHITE BLOOD COUNT 7.1 10^3/uL (4.0-10.0)
[2018-07-07 15:59] LABS: C REACTIVE PROTEIN QUANTITATIV 2.42 MG/DL (0.00-0.30)
[2018-07-07 16:14] LABS: ERYTHROCYTE SEDIMENTATION RATE 61 mm/hr (0-20)
== END ==
LOC: M LABDRAW1 15:35
DX: Z00.00 Encounter for general adult medical examination without abnormal findings (principal)
CPT/HCPCS: 86140

== ENCOUNTER → 2018-07-27 | Outpatient (REF) | payer MEDICARE, OTHER ==
[2018-07-27 19:10] LABS: ALBUMIN 2.9 GM/DL (3.2-5.2); ANION GAP 9 MEQ/L (8-16); BLOOD UREA NITROGEN 16 MG/DL (7-18); CALCIUM LEVEL 8.3 MG/DL (8.8-10.2); CARBON DIOXIDE LEVEL 26 MEQ/L (21-32); CHLORIDE LEVEL 109 MEQ/L (98-107); CREATININE FOR GFR 1.04 MG/DL (0.70-1.30); GLOMERULAR FILTRATION RATE > 60.0 (>35); GLUCOSE, FASTING 81 MG/DL (70-100); PHOSPHORUS LEVEL 3.3 MG/DL (2.5-4.9); POTASSIUM SERUM 3.9 MEQ/L (3.5-5.1); SODIUM LEVEL 144 MEQ/L (136-145)
== END ==
LOC: M LABDRAW1 15:49
DX: I11.9 Hypertensive heart disease without heart failure (principal); M46.47 Discitis, unspecified, lumbosacral region

== ENCOUNTER → 2018-07-27 | Outpatient (REF) | payer MEDICARE, OTHER ==
[2018-07-27 16:03] LABS: BASO % 0.4 % (0.0-1.0); EOS # 0.2 10^3/uL (0.0-0.50); EOS % 2.1 % (0.0-3.0); HEMATOCRIT 39.6 % (42.0-52.0); IMMATURE GRANULOCYTE % 1.3 % (0-3.0); LYMPH # 1.3 10^3/uL (1.5-4.5); LYMPH % 12.4 % (24.0-44.0); MEAN CORPUSCULAR HEMOGLOBIN 32.3 pg (27.0-33.0); MEAN CORPUSCULAR HGB CONC 32.8 g/dl (32.0-36.5); MEAN CORPUSCULAR VOLUME 98.3 fl (80.0-96.0); MONO # 1.3 10^3/uL (0.0-0.8); MONO % 12.4 % (0.0-5.0); NEUTROPHILS # 7.6 10^3/uL (1.8-7.7); NEUTROPHILS % 71.4 % (36.0-66.0); PLATELET COUNT, AUTOMATED 325 10^3/uL (150-450); RED BLOOD COUNT 4.03 10^6/uL (4.30-6.10); RED CELL DISTRIBUTION WIDTH 13.2 % (11.5-14.5); WHITE BLOOD COUNT 10.6 10^3/uL (4.0-10.0)
[2018-07-27 16:22] LABS: C REACTIVE PROTEIN QUANTITATIV 2.04 MG/DL (0.00-0.30)
[2018-07-27 16:33] LABS: ERYTHROCYTE SEDIMENTATION RATE 65 mm/hr (0-20)
== END ==
LOC: M LABDRAW1 15:55
DX: M46.47 Discitis, unspecified, lumbosacral region (principal)
CPT/HCPCS: 80069

== ENCOUNTER → 2018-09-02 | Outpatient (REF) | payer MEDICARE, OTHER ==
[2018-09-02 16:08] LABS: BASO # 0.1 10^3/uL (0.0-0.2); BASO % 0.6 % (0.0-1.0); EOS # 0.2 10^3/uL (0.0-0.50); EOS % 2.3 % (0.0-3.0); HEMATOCRIT 38.9 % (42.0-52.0); HEMOGLOBIN 12.6 g/dl (13.5-17.5); IMMATURE GRANULOCYTE % 2.3 % (0-3.0); LYMPH # 1.4 10^3/uL (1.5-4.5); MEAN CORPUSCULAR HEMOGLOBIN 31.7 pg (27.0-33.0); MEAN CORPUSCULAR HGB CONC 32.4 g/dl (32.0-36.5); MEAN CORPUSCULAR VOLUME 97.7 fl (80.0-96.0); MONO % 12.1 % (0.0-5.0); NEUTROPHILS # 5.4 10^3/uL (1.8-7.7); NEUTROPHILS % 65.7 % (36.0-66.0); PLATELET COUNT, AUTOMATED 269 10^3/uL (150-450); RED BLOOD COUNT 3.98 10^6/uL (4.30-6.10); RED CELL DISTRIBUTION WIDTH 13.2 % (11.5-14.5); WHITE BLOOD COUNT 8.2 10^3/uL (4.0-10.0)
[2018-09-02 16:38] LABS: ERYTHROCYTE SEDIMENTATION RATE 41 mm/hr (0-20)
[2018-09-02 16:41] LABS: C REACTIVE PROTEIN QUANTITATIV 1.47 MG/DL (0.00-0.30)
== END ==
LOC: M LABDRAW1 15:50
DX: J44.9 Chronic obstructive pulmonary disease, unspecified (principal)
CPT/HCPCS: 86140

== ENCOUNTER → 2018-09-13 | Outpatient (REF) | payer MEDICARE, OTHER ==
[2018-09-13 15:17] LABS: ALBUMIN 3.3 GM/DL (3.2-5.2); ALBUMIN/GLOBULIN RATIO 0.97 (1.00-1.93); ALKALINE PHOSPHATASE 99 U/L (45-117); ALT/SGPT 18 U/L (12-78); ANION GAP 6 MEQ/L (8-16); AST/SGOT 16 U/L (7-37); BILIRUBIN,TOTAL 0.5 MG/DL (0.2-1.0); BLOOD UREA NITROGEN 20 MG/DL (7-18); CALCIUM LEVEL 9.1 MG/DL (8.8-10.2); CARBON DIOXIDE LEVEL 29 MEQ/L (21-32); CHLORIDE LEVEL 105 MEQ/L (98-107); CHOLESTEROL LEVEL 173 MG/DL (<200); CHOLESTEROL RISK RATIO 3.604 (<5); CREATININE FOR GFR 1.18 MG/DL (0.70-1.30); FREE T4 1.04 NG/DL (0.76-1.46); GLOMERULAR FILTRATION RATE > 60.0 (>35); GLUCOSE, FASTING 97 MG/DL (70-100); HDL CHOLESTEROL 48 MG/DL (>40); LDL CHOLESTEROL 108 MG/DL (<100); NON-HDL-C 125 MG/DL; POTASSIUM SERUM 4.4 MEQ/L (3.5-5.1); SODIUM LEVEL 140 MEQ/L (136-145); TOTAL PROTEIN 6.7 GM/DL (6.4-8.2); TRIGLYCERIDES LEVEL 85 MG/DL (<150)
[2018-09-13 15:20] LABS: TOTAL 25(OH) VITAMIN D 60.3 NG/ML (30.0-100.0)
[2018-09-13 15:22] LABS: BASO # 0.1 10^3/uL (0.0-0.2); BASO % 0.6 % (0.0-1.0); EOS # 0.2 10^3/uL (0.0-0.50); EOS % 1.8 % (0.0-3.0); HEMATOCRIT 42.5 % (42.0-52.0); HEMOGLOBIN 13.8 g/dl (13.5-17.5); IMMATURE GRANULOCYTE % 0.8 % (0-3.0); LYMPH # 1.5 10^3/uL (1.5-4.5); LYMPH % 16.6 % (24.0-44.0); MEAN CORPUSCULAR HEMOGLOBIN 31.4 pg (27.0-33.0); MEAN CORPUSCULAR HGB CONC 32.5 g/dl (32.0-36.5); MEAN CORPUSCULAR VOLUME 96.6 fl (80.0-96.0); MONO # 1.3 10^3/uL (0.0-0.8); MONO % 14.3 % (0.0-5.0); NEUTROPHILS # 6.1 10^3/uL (1.8-7.7); NEUTROPHILS % 65.9 % (36.0-66.0); PLATELET COUNT, AUTOMATED 311 10^3/uL (150-450); RED CELL DISTRIBUTION WIDTH 13.5 % (11.5-14.5); WHITE BLOOD COUNT 9.3 10^3/uL (4.0-10.0)
[2018-09-13 15:26] LABS: ESTIMATED AVERAGE GLUCOSE 137 MG/DL (60-110); HEMOGLOBIN A1c 6.4 %
== END ==
LOC: M SFHCSACK 08:51
DX: E78.00 Pure hypercholesterolemia, unspecified (principal); I10 Essential (primary) hypertension; E03.9 Hypothyroidism, unspecified; R73.09 Other abnormal glucose; E55.9 Vitamin D deficiency, unspecified; Z79.899 Other long term (current) drug therapy
CPT/HCPCS: 84443

== ENCOUNTER → 2018-10-14 | Outpatient (REF) | payer MEDICARE, OTHER ==
[2018-10-14 15:52] LABS: BASO # 0.1 10^3/uL (0.0-0.2); BASO % 0.6 % (0.0-1.0); EOS # 0.2 10^3/uL (0.0-0.50); EOS % 2.7 % (0.0-3.0); HEMATOCRIT 39.4 % (42.0-52.0); HEMOGLOBIN 12.8 g/dl (13.5-17.5); IMMATURE GRANULOCYTE % 0.8 % (0-3.0); LYMPH # 1.2 10^3/uL (1.5-4.5); LYMPH % 14.6 % (24.0-44.0); MEAN CORPUSCULAR HGB CONC 32.5 g/dl (32.0-36.5); MEAN CORPUSCULAR VOLUME 95.4 fl (80.0-96.0); MONO # 1.1 10^3/uL (0.0-0.8); MONO % 14.3 % (0.0-5.0); NEUTROPHILS # 5.3 10^3/uL (1.8-7.7); PLATELET COUNT, AUTOMATED 332 10^3/uL (150-450); RED BLOOD COUNT 4.13 10^6/uL (4.30-6.10); RED CELL DISTRIBUTION WIDTH 13.5 % (11.5-14.5); WHITE BLOOD COUNT 7.9 10^3/uL (4.0-10.0)
[2018-10-14 16:14] LABS: C REACTIVE PROTEIN QUANTITATIV 5.51 MG/DL (0.00-0.30)
[2018-10-14 16:27] LABS: ERYTHROCYTE SEDIMENTATION RATE 74 mm/hr (0-20)
== END ==
LOC: M LABDRAW1 14:22
DX: A49.01 Methicillin susceptible Staphylococcus aureus infection, unspecified site (principal)
CPT/HCPCS: 86140

== ENCOUNTER → 2018-11-03 | Outpatient (REF) | payer MEDICARE, OTHER ==
[~2018-11-03] MED LIST changes: +ACET500T15 PO; -ACET50TAOT PO; -DILT120C PO; +DILT120C77 PO; +FLOM0.4C39 PO; -FLOM5CAP PO; -GABA-283 PO; +GABA-845 PO; +IPRA0.00 INH; -IPRASOL4 INH; -NAFC1INJ IV; +NAFC2INJ IV; +TIZA4CAP PO; -TIZA4CAP3 PO
[2018-11-03 16:13] LABS: BASO # 0.1 10^3/uL (0.0-0.2); BASO % 0.6 % (0.0-1.0); EOS # 0.3 10^3/uL (0.0-0.50); EOS % 2.3 % (0.0-3.0); HEMATOCRIT 41.1 % (42.0-52.0); HEMOGLOBIN 13.1 g/dl (13.5-17.5); LYMPH # 1.5 10^3/uL (1.5-4.5); LYMPH % 14.1 % (24.0-44.0); MEAN CORPUSCULAR HEMOGLOBIN 30.3 pg (27.0-33.0); MEAN CORPUSCULAR HGB CONC 31.9 g/dl (32.0-36.5); MEAN CORPUSCULAR VOLUME 94.9 fl (80.0-96.0); MONO # 1.2 10^3/uL (0.0-0.8); NEUTROPHILS # 7.7 10^3/uL (1.8-7.7); PLATELET COUNT, AUTOMATED 362 10^3/uL (150-450); RED BLOOD COUNT 4.33 10^6/uL (4.30-6.10); WHITE BLOOD COUNT 10.8 10^3/uL (4.0-10.0)
[2018-11-03 18:08] LABS: ERYTHROCYTE SEDIMENTATION RATE 81 mm/hr (0-20)
== END ==
LOC: M LABDRAW1 14:12
PROVIDERS: ATTEND Internal Medicine Infectious Disease
DX: A49.01 Methicillin susceptible Staphylococcus aureus infection, unspecified site (principal)

== ENCOUNTER → 2018-12-23 | Outpatient (REF) | payer MEDICARE, OTHER ==
[~2018-12-23] MED LIST changes: -LASI40TA PO; +LASI40TA9 PO
[2018-12-23 12:20] LABS: BASO # 0.1 10^3/uL (0.0-0.2); BASO % 0.5 % (0.0-1.0); EOS # 0.2 10^3/uL (0.0-0.50); EOS % 1.7 % (0.0-3.0); HEMATOCRIT 40.4 % (42.0-52.0); HEMOGLOBIN 13.2 g/dl (13.5-17.5); LYMPH # 1.2 10^3/uL (1.5-4.5); MEAN CORPUSCULAR HEMOGLOBIN 30.9 pg (27.0-33.0); MEAN CORPUSCULAR HGB CONC 32.7 g/dl (32.0-36.5); MEAN CORPUSCULAR VOLUME 94.6 fl (80.0-96.0); MONO # 1.1 10^3/uL (0.0-0.8); NEUTROPHILS # 7.2 10^3/uL (1.8-7.7); NEUTROPHILS % 73.1 % (36.0-66.0); PLATELET COUNT, AUTOMATED 260 10^3/uL (150-450); RED BLOOD COUNT 4.27 10^6/uL (4.30-6.10); WHITE BLOOD COUNT 9.9 10^3/uL (4.0-10.0)
[2018-12-23 12:35] LABS: HEMOGLOBIN A1c 6.8 %
[2018-12-23 12:57] LABS: ALBUMIN 3.1 GM/DL (3.2-5.2); ALT/SGPT 19 U/L (12-78); BILIRUBIN,TOTAL 0.6 MG/DL (0.2-1.0); BLOOD UREA NITROGEN 23 MG/DL (7-18); CALCIUM LEVEL 8.6 MG/DL (8.8-10.2); CARBON DIOXIDE LEVEL 30 MEQ/L (21-32); CHLORIDE LEVEL 108 MEQ/L (98-107); GLOMERULAR FILTRATION RATE > 60.0 (>35); GLUCOSE, FASTING 98 MG/DL (70-100); SODIUM LEVEL 143 MEQ/L (136-145); TOTAL PROTEIN 6.2 GM/DL (6.4-8.2)
[2018-12-23 12:58] LABS: ERYTHROCYTE SEDIMENTATION RATE 56 mm/hr (0-20)
[2018-12-23 12:59] LABS: FREE T4 1.07 NG/DL (0.76-1.46); THYROID STIMULATING HORMONE 2.18 uIU/ML (0.358-3.740)
== END ==
LOC: M SFHCPLAZ 10:29
PROVIDERS: ATTEND Internal Medicine Infectious Disease
DX: E03.9 Hypothyroidism, unspecified (principal); R73.09 Other abnormal glucose; N40.1 Benign prostatic hyperplasia with lower urinary tract symptoms; A49.01 Methicillin susceptible Staphylococcus aureus infection, unspecified site
CPT/HCPCS: 36415; 80053; 83036; 84439; 84443; 85025; 85652; 86140; G0103; G0463

== ENCOUNTER → 2019-01-24 | Outpatient (REF) | payer MEDICARE, OTHER ==
[2019-01-24 15:16] LABS: ALBUMIN 2.8 GM/DL (3.2-5.2); CALCIUM LEVEL 8.3 MG/DL (8.8-10.2); CREATININE FOR GFR 1.25 MG/DL (0.70-1.30); GLOMERULAR FILTRATION RATE 58.7 (>35); PHOSPHORUS LEVEL 3.4 MG/DL (2.5-4.9); POTASSIUM SERUM 4.4 MEQ/L (3.5-5.1)
== END ==
LOC: M LAB REF 14:39
PROVIDERS: ATTEND Physician Assistant
DX: I11.9 Hypertensive heart disease without heart failure (principal)

== ENCOUNTER → 2019-01-31 | Outpatient (REF) | payer MEDICARE, OTHER ==
[2019-01-31 17:54] LABS: CALCIUM LEVEL 8.9 MG/DL (8.8-10.2); CREATININE FOR GFR 1.41 MG/DL (0.70-1.30); GLOMERULAR FILTRATION RATE 51.1 (>35); PHOSPHORUS LEVEL 3.6 MG/DL (2.5-4.9); POTASSIUM SERUM 4.4 MEQ/L (3.5-5.1)
== END ==
LOC: M SFHCSACK 15:54
PROVIDERS: ATTEND Physician Assistant
DX: R60.0 Localized edema (principal)

== ENCOUNTER → 2019-01-31 | Outpatient (REF) | payer MEDICARE, OTHER ==
[2019-01-31 14:15] LABS: BASO # 0.1 10^3/uL (0.0-0.2); BASO % 0.4 % (0.0-1.0); EOS # 0.2 10^3/uL (0.0-0.50); EOS % 1.5 % (0.0-3.0); HEMATOCRIT 41.5 % (42.0-52.0); HEMOGLOBIN 13.3 g/dl (13.5-17.5); LYMPH # 1.5 10^3/uL (1.5-4.5); MEAN CORPUSCULAR HEMOGLOBIN 30.5 pg (27.0-33.0); MEAN CORPUSCULAR VOLUME 95.2 fl (80.0-96.0); MONO # 1.5 10^3/uL (0.0-0.8); MONO % 13.1 % (0.0-5.0); NEUTROPHILS # 8.3 10^3/uL (1.8-7.7); PLATELET COUNT, AUTOMATED 434 10^3/uL (150-450); RED BLOOD COUNT 4.36 10^6/uL (4.30-6.10); WHITE BLOOD COUNT 11.7 10^3/uL (4.0-10.0)
== END ==
LOC: M SFHCSACK 08:16
PROVIDERS: ATTEND Physician Assistant
DX: I10 Essential (primary) hypertension (principal)

== ENCOUNTER → 2019-02-14 | Outpatient (REF) | payer MEDICARE, OTHER ==
[2019-02-14 16:41] LABS: ALBUMIN 2.9 GM/DL (3.2-5.2); CALCIUM LEVEL 8.7 MG/DL (8.8-10.2); CREATININE FOR GFR 1.4 MG/DL (0.70-1.30); GLOMERULAR FILTRATION RATE 51.5 (>35); PHOSPHORUS LEVEL 4.4 MG/DL (2.5-4.9); POTASSIUM SERUM 4.3 MEQ/L (3.5-5.1)
== END ==
LOC: M LAB REF 15:40
PROVIDERS: ATTEND Physician Assistant
DX: R60.0 Localized edema (principal)

== ENCOUNTER → 2019-03-28 | Outpatient (REF) | payer MEDICARE, OTHER ==
[2019-03-28 15:05] LABS: BASO % 0.4 % (0.0-1.0); EOS # 0.4 10^3/uL (0.0-0.50); EOS % 3.9 % (0.0-3.0); HEMATOCRIT 38.1 % (42.0-52.0); HEMOGLOBIN 11.9 g/dl (13.5-17.5); LYMPH # 1.6 10^3/uL (1.5-4.5); LYMPH % 16.6 % (24.0-44.0); MEAN CORPUSCULAR HEMOGLOBIN 29.7 pg (27.0-33.0); MEAN CORPUSCULAR HGB CONC 31.2 g/dl (32.0-36.5); MONO # 1.1 10^3/uL (0.0-0.8); MONO % 11.6 % (0.0-5.0); NEUTROPHILS # 6.6 10^3/uL (1.8-7.7); NEUTROPHILS % 66.9 % (36.0-66.0); PLATELET COUNT, AUTOMATED 351 10^3/uL (150-450); RED BLOOD COUNT 4.01 10^6/uL (4.30-6.10); WHITE BLOOD COUNT 9.8 10^3/uL (4.0-10.0)
[2019-03-28 15:08] LABS: BLOOD UREA NITROGEN 32 MG/DL (7-18); C REACTIVE PROTEIN QUANTITATIV 3.95 MG/DL (0.00-0.30); CALCIUM LEVEL 8.8 MG/DL (8.8-10.2); CARBON DIOXIDE LEVEL 27 MEQ/L (21-32); CHLORIDE LEVEL 105 MEQ/L (98-107); CREATININE FOR GFR 1.17 MG/DL (0.70-1.30); GLOMERULAR FILTRATION RATE > 60.0 (>35); GLUCOSE, FASTING 135 MG/DL (70-100); SODIUM LEVEL 140 MEQ/L (136-145)
[2019-03-28 16:43] LABS: ERYTHROCYTE SEDIMENTATION RATE 84 mm/hr (0-20)
== END ==
LOC: M SFHCPLAZ 10:44
PROVIDERS: ATTEND Internal Medicine Infectious Disease
DX: M46.47 Discitis, unspecified, lumbosacral region (principal)

== ENCOUNTER → 2019-06-27 | Outpatient (REF) | payer MEDICARE, OTHER ==
[2019-06-27 15:05] LABS: BASO # 0.1 10^3/uL (0.0-0.2); BASO % 0.5 % (0.0-1.0); EOS # 0.2 10^3/uL (0.0-0.50); EOS % 1.6 % (0.0-3.0); HEMATOCRIT 42.1 % (42.0-52.0); HEMOGLOBIN 13.2 g/dl (13.5-17.5); LYMPH # 1.7 10^3/uL (1.5-4.5); LYMPH % 16.3 % (24.0-44.0); MEAN CORPUSCULAR HEMOGLOBIN 29.5 pg (27.0-33.0); MEAN CORPUSCULAR HGB CONC 31.4 g/dl (32.0-36.5); MONO # 1.4 10^3/uL (0.0-0.8); MONO % 12.8 % (0.0-5.0); NEUTROPHILS # 7.1 10^3/uL (1.8-7.7); NEUTROPHILS % 67.7 % (36.0-66.0); PLATELET COUNT, AUTOMATED 268 10^3/uL (150-450); RED BLOOD COUNT 4.48 10^6/uL (4.30-6.10); WHITE BLOOD COUNT 10.5 10^3/uL (4.0-10.0)
[2019-06-27 15:20] LABS: BLOOD UREA NITROGEN 20 MG/DL (7-18); C REACTIVE PROTEIN QUANTITATIV 1.98 MG/DL (0.00-0.30); CARBON DIOXIDE LEVEL 32 MEQ/L (21-32); CHLORIDE LEVEL 104 MEQ/L (98-107); CREATININE FOR GFR 1.05 MG/DL (0.70-1.30); GLOMERULAR FILTRATION RATE > 60.0 (>35); GLUCOSE, FASTING 89 MG/DL (70-100); POTASSIUM SERUM 4.2 MEQ/L (3.5-5.1); SODIUM LEVEL 141 MEQ/L (136-145)
[2019-06-27 15:40] LABS: ERYTHROCYTE SEDIMENTATION RATE 66 mm/hr (0-20)
== END ==
LOC: M SFHCPLAZ 14:02
PROVIDERS: ATTEND Internal Medicine Infectious Disease
DX: A49.01 Methicillin susceptible Staphylococcus aureus infection, unspecified site (principal)

== ENCOUNTER → 2019-08-22 | Outpatient (REF) | payer MEDICARE, OTHER ==
[2019-08-22 16:25] LABS: BASO # 0.1 10^3/uL (0.0-0.2); BASO % 0.6 % (0.0-1.0); EOS # 0.2 10^3/uL (0.0-0.5); EOS % 1.4 % (0.0-3.0); HEMATOCRIT 44.3 % (42.0-52.0); HEMOGLOBIN 14.4 g/dl (13.5-17.5); LYMPH % 18.4 % (24.0-44.0); MEAN CORPUSCULAR HEMOGLOBIN 31.5 pg (27.0-33.0); MEAN CORPUSCULAR HGB CONC 32.5 g/dl (32.0-36.5); MEAN CORPUSCULAR VOLUME 96.9 fl (80.0-96.0); MONO # 1.1 10^3/uL (0.0-0.8); MONO % 10.1 % (0.0-5.0); NEUTROPHILS # 7.3 10^3/uL (1.5-8.5); NEUTROPHILS % 68.2 % (36.0-66.0); PLATELET COUNT, AUTOMATED 208 10^3/uL (150-450); RED BLOOD COUNT 4.57 10^6/uL (4.30-6.10); WHITE BLOOD COUNT 10.7 10^3/uL (4.0-10.0)
[2019-08-22 16:37] LABS: ALBUMIN 3.1 GM/DL (3.2-5.2); ALT/SGPT 21 U/L (12-78); BILIRUBIN,TOTAL 0.6 MG/DL (0.2-1.0); BLOOD UREA NITROGEN 26 MG/DL (7-18); CALCIUM LEVEL 9.3 MG/DL (8.8-10.2); CARBON DIOXIDE LEVEL 30 MEQ/L (21-32); CHLORIDE LEVEL 103 MEQ/L (98-107); CHOLESTEROL LEVEL 191 MG/DL (<200); CHOLESTEROL RISK RATIO 2.728 (<5); CREATININE FOR GFR 1.12 MG/DL (0.70-1.30); GLOMERULAR FILTRATION RATE > 60.0 (>35); GLUCOSE, FASTING 106 MG/DL (70-100); HDL CHOLESTEROL 70 MG/DL (>40); LDL CHOLESTEROL 99 MG/DL (<100); NON-HDL-C 121 MG/DL; POTASSIUM SERUM 3.9 MEQ/L (3.5-5.1); SODIUM LEVEL 143 MEQ/L (136-145); TOTAL PROTEIN 6.5 GM/DL (6.4-8.2); TRIGLYCERIDES LEVEL 110 MG/DL (<150)
[2019-08-22 16:39] LABS: TOTAL 25(OH) VITAMIN D 52.2 NG/ML (30.0-100.0)
== END ==
LOC: M SFHCSACK 09:47
PROVIDERS: ATTEND Physician Assistant
DX: I10 Essential (primary) hypertension (principal); E78.00 Pure hypercholesterolemia, unspecified; E03.9 Hypothyroidism, unspecified; E55.9 Vitamin D deficiency, unspecified

== ENCOUNTER → 2019-09-22 | Outpatient (REF) | payer MEDICARE, OTHER ==
[2019-09-22 11:50] LABS: BASO # 0.1 10^3/uL (0.0-0.2); BASO % 0.6 % (0.0-1.0); EOS # 0.2 10^3/uL (0.0-0.5); EOS % 1.6 % (0.0-3.0); HEMATOCRIT 40.2 % (42.0-52.0); HEMOGLOBIN 12.9 g/dl (13.5-17.5); LYMPH # 1.5 10^3/uL (1.5-5.0); LYMPH % 13.9 % (24.0-44.0); MEAN CORPUSCULAR HEMOGLOBIN 31.2 pg (27.0-33.0); MEAN CORPUSCULAR HGB CONC 32.1 g/dl (32.0-36.5); MEAN CORPUSCULAR VOLUME 97.3 fl (80.0-96.0); MONO # 1.5 10^3/uL (0.0-0.8); MONO % 13.9 % (0.0-5.0); NEUTROPHILS # 7.5 10^3/uL (1.5-8.5); NEUTROPHILS % 68.7 % (36.0-66.0); PLATELET COUNT, AUTOMATED 307 10^3/uL (150-450); RED BLOOD COUNT 4.13 10^6/uL (4.30-6.10); WHITE BLOOD COUNT 10.8 10^3/uL (4.0-10.0)
[2019-09-22 12:33] LABS: ERYTHROCYTE SEDIMENTATION RATE 93 mm/hr (0-20)
== END ==
LOC: M SFHCPLAZ 10:16
PROVIDERS: ATTEND Internal Medicine Infectious Disease
DX: A49.01 Methicillin susceptible Staphylococcus aureus infection, unspecified site (principal)
CPT/HCPCS: 36415; 85025; 85652; 86140; G0463

== ENCOUNTER → 2020-01-16 | Outpatient (REF) | payer MEDICARE, OTHER ==
[~2020-01-16] MED LIST changes: +ALBU83IN INH; +CART120C PO; +CEPH500C PO; +CHLO125TA PO; +FURO40TA2 PO; +GABA800T4 PO; +INCR1INH INH; +LEVA1.2519 INH; +LEVO50TA5 PO; +MELO15TA28 PO; +PRES10CA2 PO; +TORS20TA2 PO; +VITA50005 PO
[2020-01-16 12:50] LABS: BASO # 0.1 10^3/uL (0.0-0.2); BASO % 0.6 % (0.0-1.0); EOS # 0.3 10^3/uL (0.0-0.5); EOS % 2.1 % (0.0-3.0); HEMATOCRIT 38.5 % (42.0-52.0); HEMOGLOBIN 12.1 g/dl (13.5-17.5); LYMPH # 1.4 10^3/uL (1.5-5.0); LYMPH % 11.6 % (24.0-44.0); MEAN CORPUSCULAR HEMOGLOBIN 29.5 pg (27.0-33.0); MEAN CORPUSCULAR HGB CONC 31.4 g/dl (32.0-36.5); MEAN CORPUSCULAR VOLUME 93.9 fl (80.0-96.0); MONO # 1.3 10^3/uL (0.0-0.8); MONO % 10.3 % (0.0-5.0); NEUTROPHILS % 74.6 % (36.0-66.0); PLATELET COUNT, AUTOMATED 319 10^3/uL (150-450); WHITE BLOOD COUNT 12.1 10^3/uL (4.0-10.0)
[2020-01-16 13:18] LABS: ERYTHROCYTE SEDIMENTATION RATE 86 mm/hr (0-20)
[2020-01-16 13:20] LABS: BLOOD UREA NITROGEN 17 MG/DL (7-18); C REACTIVE PROTEIN QUANTITATIV 2.37 MG/DL (0.00-0.30); CALCIUM LEVEL 8.4 MG/DL (8.8-10.2); CARBON DIOXIDE LEVEL 30 MEQ/L (21-32); CHLORIDE LEVEL 106 MEQ/L (98-107); CREATININE FOR GFR 1.09 MG/DL (0.70-1.30); GLOMERULAR FILTRATION RATE > 60.0 (>35); GLUCOSE, FASTING 126 MG/DL (70-100); SODIUM LEVEL 140 MEQ/L (136-145)
== END ==
LOC: M SFHCPLAZ 09:06
PROVIDERS: ATTEND Internal Medicine Infectious Disease
DX: A49.01 Methicillin susceptible Staphylococcus aureus infection, unspecified site (principal); M79.89 Other specified soft tissue disorders
CPT/HCPCS: 36415; 80048; 85025; 85652; 86140; G0463

== ENCOUNTER 2020-01-18 13:57 | Emergency (ER) | payer MEDICARE, OTHER ==
[~2020-01-18] VITALS: Ht 182.9 cm; Wt 114.5 kg
[~2020-01-18 13:57] MED LIST changes: -ALBU83IN INH; -CART120C PO; -CEPH500C PO; -CHLO125TA PO; -FURO40TA2 PO; -GABA800T4 PO; -INCR1INH INH; -LEVA1.2519 INH; -LEVO50TA5 PO; -MELO15TA28 PO; -PRES10CA2 PO; -TORS20TA2 PO; -VITA50005 PO
[2020-01-18] MEDS ORDERED: ELIQ5TAB PO (14:38)
[2020-01-18] MEDS ORDERED: CEPH500C PO (14:38)
[2020-01-18] MEDS ORDERED: ALBU83IN INH (14:38)
[2020-01-18] MEDS ORDERED: LEVO50TA5 PO (14:38)
[2020-01-18 14:43] LABS: BASO % 0.2 % (0.0-1.0); EOS # 0.1 10^3/uL (0.0-0.5); EOS % 0.5 % (0.0-3.0); HEMATOCRIT 38.4 % (42.0-52.0); HEMOGLOBIN 12.2 g/dl (13.5-17.5); LYMPH # 1.2 10^3/uL (1.5-5.0); MEAN CORPUSCULAR HGB CONC 31.8 g/dl (32.0-36.5); MEAN CORPUSCULAR VOLUME 91.2 fl (80.0-96.0); MONO # 1.7 10^3/uL (0.0-0.8); MONO % 9.7 % (0.0-5.0); NEUTROPHILS # 14.3 10^3/uL (1.5-8.5); NEUTROPHILS % 81.9 % (36.0-66.0); PLATELET COUNT, AUTOMATED 315 10^3/uL (150-450); RED BLOOD COUNT 4.21 10^6/uL (4.30-6.10); WHITE BLOOD COUNT 17.5 10^3/uL (4.0-10.0)
--- NOTE | 2020-01-18 14:46 | REP ---
Portable chest x-ray: Single view. History: Dyspnea and cough. Comparison chest x-ray: February 15, 2017. Findings: EKG electrodes are seen. There is linear fibrosis in the right base. Right hemidiaphragm is somewhat elevated. There is blunting of the right lateral pleural angle. The pleural angle blunting as a new finding. The heart is moderately enlarged. Pulmonary vasculature is somewhat cephalized. No focal infiltrate is seen. Impression: Small right effusion. Cardiomegaly. Cephalization. CHF pattern. Electronically Signed by Manav Vargas MD 01/18/2020 02:37 P
[2020-01-18 14:58] LABS: INFLUENZA A AMPLIFICATION NEGATIVE (NEGATIVE); INFLUENZA B AMPLIFICATION NEGATIVE (NEGATIVE)
[2020-01-18] MEDS ORDERED: FUROSEMIDE 40MG/4ML VIAL (J1940) IV ONE (15:00)
[2020-01-18] MEDS: IPRATROPIUM 0.5MG/ALBUTEROL 2.5MG INH SOL UD 3ML (DUONEB)(J7620) NEB SCH ×3 (15:15→16:32)
[2020-01-18 15:17] LABS: BLOOD UREA NITROGEN 24 MG/DL (7-18); CALCIUM LEVEL 8.9 MG/DL (8.8-10.2); CARBON DIOXIDE LEVEL 29 MEQ/L (21-32); CHLORIDE LEVEL 101 MEQ/L (98-107); CK-MB VALUE MASS 1.9 NG/ML (<3.6); CPK CREATINE PHOSPHOKINASE 52 U/L (39-308); CREATININE FOR GFR 1.19 MG/DL (0.70-1.30); GLOMERULAR FILTRATION RATE > 60.0 (>35); GLUCOSE, FASTING 111 MG/DL (70-100); MB/CK RELATIVE INDEX 3.65 (< OR =4); NT-PRO BNP 1415 PG/ML (<450); POTASSIUM SERUM 4.1 MEQ/L (3.5-5.1); SODIUM LEVEL 137 MEQ/L (136-145); TROPONIN I < 0.02 NG/ML (< 0.10)
[2020-01-18] MEDS ORDERED: LEVA1.2519 INH (17:36)
[2020-01-18] MEDS ORDERED: FURO40TA2 PO (17:36)
[2020-01-18] MEDS ORDERED: PRES10CA2 PO (17:36)
[2020-01-18] MEDS ORDERED: FINA5TAB2 PO (17:36)
[2020-01-18] MEDS ORDERED: VITA50005 PO (17:36)
[2020-01-18] MEDS ORDERED: FLOM0.4C39 PO (17:36)
[2020-01-18] MEDS ORDERED: INCR1INH INH (17:36)
[2020-01-18] MEDS ORDERED: CART120C PO (17:36)
[2020-01-18] MEDS ORDERED: PROAAER10 INH (17:36)
[2020-01-18] MEDS ORDERED: MELO15TA28 PO (17:36)
[2020-01-18] MEDS ORDERED: BREO1INH3 INH (17:36)
[2020-01-18] MEDS ORDERED: GABA800T4 PO (17:36)
[2020-01-18] MEDS ORDERED: CHLO125TA PO (17:36)
[2020-01-18] MEDS ORDERED: TORS20TA2 PO ×2 (18:11→18:34)
[2020-01-18 18:42] VITALS: BP 149/66
--- NOTE | 2020-01-19 06:58 | ECGEPIP ---
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
== END 2020-01-18 18:54 | disposition home or self-care (01) ==
LOC: M ED 13:57 → CANBEDREQ 18:30 → M ED 18:54
DX: I50.23 Acute on chronic systolic (congestive) heart failure (principal); R06.03 Acute respiratory distress; I48.20 Chronic atrial fibrillation, unspecified; J96.11 Chronic respiratory failure with hypoxia; Z91.11 Patient's noncompliance with dietary regimen; R94.31 Abnormal electrocardiogram [ECG] [EKG]; J90 Pleural effusion, not elsewhere classified; I51.7 Cardiomegaly; J44.1 Chronic obstructive pulmonary disease with (acute) exacerbation; N18.9 Chronic kidney disease, unspecified; N40.0 Benign prostatic hyperplasia without lower urinary tract symptoms; G90.09 Other idiopathic peripheral autonomic neuropathy; Z85.118 Personal history of other malignant neoplasm of bronchus and lung; Z87.891 Personal history of nicotine dependence; Z88.5 Allergy status to narcotic agent; Z79.01 Long term (current) use of anticoagulants; Z79.51 Long term (current) use of inhaled steroids; Z79.84 Long term (current) use of oral hypoglycemic drugs; Z79.899 Other long term (current) drug therapy
CPT/HCPCS: 71045; 80048; 82550; 82553; 83880; 84484; 85025; 87502; 93005; 93041; 94640; 94760; 96374; 99285; G0463; J1940

== ENCOUNTER → 2020-04-19 | Outpatient (CLI) | payer MEDICARE, OTHER ==
[~2020-04-19] MED LIST changes: +ACET650T61 PO; +ALBU83IN INH; +CART120C PO; +CEPH500C PO; +CHLO125TA PO; +DILT120C89 PO; +FEOS200T2 PO; +FURO40TA2 PO; +GABA800T4 PO; +INCR1INH INH; +KEFL500C17 PO; +LEVA1.2519 INH; +LEVO50TA5 PO; -LISI-542 PO; +LISI-898 PO; +MELO15TA28 PO; +MELO7.5T35 PO; +PRES10CA2 PO; +PROT1TAB2 PO; +QC A650T3 PO; +TORS20TA2 PO; +VITA50005 PO
[2020-04-19 15:42] LABS: BASO # 0.1 10^3/uL (0.0-0.2); BASO % 0.5 % (0.0-1.0); EOS # 0.3 10^3/uL (0.0-0.5); EOS % 2.9 % (0.0-3.0); HEMATOCRIT 35.4 % (42.0-52.0); HEMOGLOBIN 10.7 g/dl (13.5-17.5); LYMPH # 1.4 10^3/uL (1.5-5.0); LYMPH % 14.4 % (24.0-44.0); MEAN CORPUSCULAR HEMOGLOBIN 27.6 pg (27.0-33.0); MEAN CORPUSCULAR HGB CONC 30.2 g/dl (32.0-36.5); MEAN CORPUSCULAR VOLUME 91.2 fl (80.0-96.0); MONO % 10.1 % (0.0-5.0); NEUTROPHILS # 6.8 10^3/uL (1.5-8.5); NEUTROPHILS % 70.4 % (36.0-66.0); PLATELET COUNT, AUTOMATED 413 10^3/uL (150-450); RED BLOOD COUNT 3.88 10^6/uL (4.30-6.10); WHITE BLOOD COUNT 9.7 10^3/uL (4.0-10.0)
[2020-04-19 16:03] LABS: ERYTHROCYTE SEDIMENTATION RATE 86 mm/hr (0-20)
[2020-04-19 16:04] LABS: BLOOD UREA NITROGEN 25 MG/DL (7-18); C REACTIVE PROTEIN QUANTITATIV 1.79 MG/DL (0.00-0.30); CALCIUM LEVEL 8.6 MG/DL (8.8-10.2); CARBON DIOXIDE LEVEL 31 MEQ/L (21-32); CHLORIDE LEVEL 102 MEQ/L (98-107); CREATININE FOR GFR 1.12 MG/DL (0.70-1.30); GLOMERULAR FILTRATION RATE > 60.0 (>35); GLUCOSE, FASTING 179 MG/DL (70-100); SODIUM LEVEL 139 MEQ/L (136-145)
== END ==
LOC: M PLALAB 14:02
PROVIDERS: ATTEND Internal Medicine Infectious Disease
DX: M46.47 Discitis, unspecified, lumbosacral region (principal)
CPT/HCPCS: 36415; 80048; 85025; 85652; 86140; G0463

== ENCOUNTER → 2020-05-03 | Outpatient (REF) | payer MEDICARE, OTHER ==
[~2020-05-03] MED LIST changes: +LISI-542 PO; -LISI-898 PO
[2020-05-03 11:21] LABS: BASO % 0.4 % (0.0-1.0); EOS # 0.2 10^3/uL (0.0-0.5); EOS % 1.7 % (0.0-3.0); HEMATOCRIT 34.5 % (42.0-52.0); HEMOGLOBIN 10.7 g/dl (13.5-17.5); LYMPH # 1.6 10^3/uL (1.5-5.0); LYMPH % 13.7 % (24.0-44.0); MEAN CORPUSCULAR HEMOGLOBIN 28.2 pg (27.0-33.0); MEAN CORPUSCULAR VOLUME 90.8 fl (80.0-96.0); MONO # 1.5 10^3/uL (0.0-0.8); NEUTROPHILS # 8.1 10^3/uL (1.5-8.5); NEUTROPHILS % 70.8 % (36.0-66.0); PLATELET COUNT, AUTOMATED 320 10^3/uL (150-450); WHITE BLOOD COUNT 11.4 10^3/uL (4.0-10.0)
[2020-05-03 11:40] LABS: HEMOGLOBIN A1c 7.2 %
[2020-05-03 11:56] LABS: PERCENT SATURATION 10.8 % (19.7-50.0)
[2020-05-04 17:07] LABS: FREE KAPPA LIGHT CHAINS SERUM 55.2 mg/L (3.3-19.4); FREE LAMBDA LIGHT CHAINS SERUM 42.5 mg/L (5.7-26.3); KAPPA/LAMBDA RATIO SERUM 1.3 (0.26-1.65)
== END ==
LOC: M SFHCPLAZ 09:43
PROVIDERS: ATTEND Physician Assistant
DX: D64.9 Anemia, unspecified (principal); R73.09 Other abnormal glucose
CPT/HCPCS: 36415; 82728; 83036; 83550; 83883; 85025; 85046; G0463

== ENCOUNTER 2020-07-19 14:38 | Inpatient (IN) | payer MEDICARE, OTHER ==
[~2020-07-19] VITALS: Ht 182.9 cm; Wt 106.4 kg
[2020-07-19] VITALS (8 sets, daily range): BP systolic 113–152; BP diastolic 53–67
[~2020-07-19 14:38] MED LIST changes: -ACET650T61 PO; -DILT120C89 PO; -FEOS200T2 PO; -KEFL500C17 PO; -MELO7.5T35 PO; -PROT1TAB2 PO; -QC A650T3 PO
[2020-07-19] MEDS ORDERED: IPRATROPIUM 0.5MG/ALBUTEROL 2.5MG INH SOL UD 3ML (DUONEB) NEB ONE (15:00)
--- NOTE | 2020-07-19 15:14 | REPVR ---
PROCEDURE INFORMATION: Exam: XR Chest, 1 View Exam date and time: 07/19/2020 2:57 PM Age: 85 years old Clinical indication: Cough and dyspnea and shortness of breath; Additional info: Dyspnea/cough TECHNIQUE: Imaging protocol: XR of the chest Views: 1 view. COMPARISON: DE PORTABLE CHEST X-RAY 01/18/2020 2:31 PM FINDINGS: Lungs: This is a very poor inspiratory effort. Pleural space: There is again blunting of the right costophrenic angle which appears chronic. Heart/Mediastinum: Heart is enlarged. Bones/joints: Unremarkable. IMPRESSION: No change. Electronically signed by: Kavon Mann On 07/19/2020 15:14:35 PM
[2020-07-19 15:38] LABS: VENOUS BASE EXCESS 4.4 (-2.0-2.0); VENOUS HCO3 30.1 MEQ/L (23.0-27.0); VENOUS O2 SATURATION 97.1 % (60.0-80.0); VENOUS PARTIAL PRESSURE CO2 52.5 mmHg (38.0-50.0); VENOUS PARTIAL PRESSURE O2 98.3 mmHg (30.0-50.0); VENOUS PH 7.376 UNITS (7.330-7.430); VENOUS STANDARD HCO3 28.5 MEQ/L; VENOUS TOTAL CO2 31.7 MEQ/L (24.0-28.0)
[2020-07-19 15:41] LABS: BASO % 0.1 % (0.0-1.0); EOS # 0.2 10^3/uL (0.0-0.5); EOS % 2.4 % (0.0-3.0); LYMPH # 1.5 10^3/uL (1.5-5.0); LYMPH % 15.7 % (24.0-44.0); MEAN CORPUSCULAR HEMOGLOBIN 30.2 pg (27.0-33.0); MEAN CORPUSCULAR HGB CONC 30.4 g/dl (32.0-36.5); MEAN CORPUSCULAR VOLUME 99.5 fl (80.0-96.0); MONO # 1.2 10^3/uL (0.0-0.8); MONO % 12.8 % (0.0-5.0); NEUTROPHILS # 6.5 10^3/uL (1.5-8.5); NEUTROPHILS % 68.1 % (36.0-66.0); PLATELET COUNT, AUTOMATED 292 10^3/uL (150-450); RED BLOOD COUNT 1.92 10^6/uL (4.30-6.10); WHITE BLOOD COUNT 9.5 10^3/uL (4.0-10.0)
[2020-07-19 15:45] LABS: HEMATOCRIT 19.1 % (42.0-52.0); HEMOGLOBIN 5.8 g/dl (13.5-17.5)
[2020-07-19 15:54] LABS: INR 1.36; PROTHROMBIN TIME 17.1 SECONDS (11.8-14.0)
[2020-07-19] MEDS ORDERED: PANTOPRAZOLE 40MG VIAL (C9113 PER 1) IV ONE (16:00)
[2020-07-19] MEDS ORDERED: FEOS200T2 PO (16:01)
[2020-07-19] MEDS ORDERED: DILT120C89 PO (16:01)
[2020-07-19] MEDS ORDERED: MELO7.5T35 PO (16:01)
[2020-07-19 16:18] LABS: ALBUMIN 2.4 GM/DL (3.2-5.2); ALT/SGPT 13 U/L (12-78); BILIRUBIN,DIRECT < 0.1 MG/DL (0.0-0.2); BILIRUBIN,TOTAL 0.3 MG/DL (0.2-1.0); BLOOD UREA NITROGEN 36 MG/DL (7-18); CALCIUM LEVEL 8.3 MG/DL (8.8-10.2); CARBON DIOXIDE LEVEL 30 MEQ/L (21-32); CHLORIDE LEVEL 103 MEQ/L (98-107); CK-MB VALUE MASS 2.4 NG/ML (<3.6); CPK CREATINE PHOSPHOKINASE 33 U/L (39-308); CREATININE FOR GFR 1.22 MG/DL (0.70-1.30); GLOMERULAR FILTRATION RATE > 60.0 (>35); GLUCOSE, FASTING 102 MG/DL (70-100); MB/CK RELATIVE INDEX 7.27 (< OR =4); NT-PRO BNP 1938 PG/ML (<450); POTASSIUM SERUM 3.9 MEQ/L (3.5-5.1); SODIUM LEVEL 139 MEQ/L (136-145); TOTAL PROTEIN 5.6 GM/DL (6.4-8.2); TROPONIN I < 0.02 NG/ML (< 0.10)
--- NOTE | 2020-07-19 16:47 | REPVR ---
PROCEDURE INFORMATION: Exam: CT Head Without Contrast Exam date and time: 07/19/2020 3:05 PM Age: 85 years old Clinical indication: Pain; Headache TECHNIQUE: Imaging protocol: Computed tomography of the head without contrast. Radiation optimization: All CT scans at this facility use at least one of these dose optimization techniques: automated exposure control; mA and/or kV adjustment per patient size (includes targeted exams where dose is matched to clinical indication); or iterative reconstruction. COMPARISON: CT Head W/O FOLL BY WITH CONTR 02/02/2017 4:00 PM FINDINGS: Brain: there is moderate central and cortical atrophy and mild small vessel ischemic disease all stable. There is no intracranial blood. Ventricles: Normal. No ventriculomegaly. Bones/joints: Unremarkable. No acute fracture. Sinuses: Minimal ethmoidal air cell disease is noted bilaterally. Mastoid air cells: Visualized mastoid air cells are well aerated. Soft tissues: Unremarkable. IMPRESSION: Sinus disease. No intracranial bleed. Electronically signed by: Kavon Mann On 07/19/2020 16:47:25 PM
[2020-07-19] MEDS ORDERED: TORS20TA2 PO (16:48)
[2020-07-19] MEDS ORDERED: KEFL500C17 PO (16:48)
[2020-07-19] MEDS ORDERED: QC A650T3 PO (16:48)
[2020-07-19] MEDS ORDERED: ACET650T61 PO (16:50)
[2020-07-19] MEDS ORDERED: NS 1,000 ML IV SCH ×2 (18:35→23:15)
--- NOTE | 2020-07-19 18:37 | HPEPDOC ---
[facility] Medical History & Physical Date of Admission Jul 19, 2020 Date of Service: Jul 19, 2020 Attending Physician: ANJU FRANCOIS MD History and Physical CHIEF COMPLAINT: lower gi bleeding HISTORY OF PRESENT ILLNESS: 85 yo M presenting to the ED c/o presented to the ED with progressively worsening fatigue and shortness of breath. He further reports having had gross BRBPR for three days last week starting on , into thursday. The hematochezia progressed to melena. Denies heavy etoh use. Denies hematemesis. Denies prior episode of GIB. Takes eliquis for afib. Further endorsed headache, which has now resolved. CT head wo contrast showed no bleed. Hgb 5.6 in ED. Started blood transfusion. Admitted for acute LGIB. PAST MEDICAL HISTORY: 1. Atrial fibrillation. 2. Acute kidney injury. 3. Hypertension. 4. Chronic obstructive pulmonary disease (COPD). 5. Obstructive sleep apnea. 6.. Anemia. 7. Hypoalbuminemia. 8. History of non-small cell lung cancer. 9. hx of MSSA discitis 10. hx of Cauda Equina syndrome 11. Neurogenic bladder 12. Hypothyroidism. PAST SURGICAL HISTORY: 1. Lung Resection of R lower lobe for non-small cell cancer SOCIAL HISTORY: Lives at home with Jhon smoker, quit 1993. States former etoh use, unable to quantify. Stopped drinking years ago Denies illicit drug use. FAMILY HISTORY: One daughter due to PE in 2011 Sister from lung ca ALLERGIES: Please see below. REVIEW OF SYSTEMS: Negative on general Negative CVS Positive on Resp, complaints of earlier dyspnea on exertion HOME MEDICATIONS: Please see below. PHYSICAL EXAMINATION: VITAL SIGNS: please see below GENERAL APPEARANCE: NAD, comfortable. HEENT: PERRLA, EOMI. CARDIOVASCULAR: RRR, normal S1, S2. LUNGS: absent breath sounds RLL (lobectomy), otherwise CTAB in remaining lobes. Good inspiratory effort. ABDOMEN: obese, distended veins, no masses palpated, BS+. MUSCULOSKELETAL: no joint deformity. EXTREMITIES: no edema. NEUROLOGICAL: AAO x 2, moving all 4 extemities, follows commands. PSYCHIATRIC: AAOx2, oriented to person and place, not time. Somewhat confused. LABORATORY DATA: See below. IMAGING: CT head wo contrast: IMPRESSION: Sinus disease. No intracranial bleed. MICROBIOLOGY: Please see below. ASSESSMENT: 85 yo M with a hx of COPD, afib on eliquis, diastolic CHF, non-small cell lung ca (s/p RLL resection), MSSA bacteremia, discitis, cauda equina syndrome, presenting to the [facility] ED with a 3 day hx of lower GI bleeding. Complains of progressively worsening fatigue and shortness of breath. PLAN: 1. Hematochezia: BRPR for 3 days progressing to melena. VSS. Hg 5.6 in ED. Tranfusing. Monitor H/H q6h. Protonix 40 mg IV BID. Monitor for re-bleed. NPO for now. 2. Afib: cardizem 120 mg qam. eliquis 5 mg BID. Holding eliquis. Resume cardizem when PO. 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 3. CHF: torsemide 40 mg qam. chlorthalidone 12.5. Resume when PO 4. BPH: flomax 0.4 mg 5. Hypothyroidism: levothyroxine 50 mcg qam. Resume when PO. DVT ppx: SCDs, TEDs. Holding eliquis given LGIB. Discussed with (Alicja Harvey) code status as patient appears confused at this time. MOLST form completed and witnessed. DNI but wishes to have compr essions. Documented. Vital Signs Vital Signs Date Time Temp Pulse Resp B/P (MAP) Pulse Ox O2 Delivery O2 Flow Rate FiO2 07/19/20 18:24 97.4 71 18 124/58 Nasal Cannula 2.5 07/19/20 17:24 99 Laboratory Data Labs 24H Laboratory Tests 2 07/19/20 14:47: Immature Granulocyte % (Auto) 0.9, Neutrophils (%) (Auto) 68.1H, Lymphocytes (%) (Auto) 15.7L, Monocytes (%) (Auto) 12.8H, Eosinophils (%) (Auto) 2.4, Basophils (%) (Auto) 0.1, Neutrophils # (Auto) 6.5, Lymphocytes # (Auto) 1.5, Monocytes # (Auto) 1.2H, Eosinophils # (Auto) 0.2, Basophils # (Auto) 0.0, Nucleated Red Blood Cells % (auto) 0.4H, Prothrombin Time 17.1H, Prothromb Time International Ratio 1.36, Anion Gap 6L, Glomerular Filtration Rate > 60.0, Lactic Acid Level 1.3, Calcium Level 8.3L, Total Bilirubin 0.3, Direct Bilirubin < 0.1, Aspartate Amino Transf (AST/SGOT) 12, Alanine Aminotransferase (ALT/SGPT) 13, Alkaline Phosphatase 79, Total Creatine Kinase 33L, Creatine Kinase MB 2.4, Creatine Kinase MB Relative Index 7.27H, Troponin I < 0.02, UR-Iut-T-Type Natriuretic Peptide 1938H, Total Protein 5.6L, Albumin 2.4L, Albumin/Globulin Ratio 0.8, Thyroid Stimulating Hormone (TSH) 2.180 07/19/20 15:25: Blood Gas Bicarbonate Standard 28.5, Venous Blood pH 7.376, Venous Blood Partial Pressure CO2 52.5H, Venous Blood Partial Pressure O2 98.3H, Venous Blood Total Carbon Dioxide 31.7H, Venous Blood HCO3 30.1H, Venous Blood Oxygen Saturation 97.1H, Venous Blood Base Excess 4.4H CBC/BMP Laboratory Tests 07/19/20 14:47 Microbiology Microbiology 07/19/20 Blood Culture, Received Pending 07/19/20 Blood Culture, Received Pending Home Medications Scheduled Acetaminophen (Tylenol Arthritis) 650 Mg Tablet.er, 650 MG PO TID Apixaban (Eliquis) 5 Mg Tablet, 5 MG PO BID Cephalexin (Keflex) 500 Mg Capsule, 500 MG PO BID Chlorthalidone (Chlorthalidone) 25 Mg Tablet, 12.5 MG PO QAM Diltiazem HCl (Cartia Xt) 120 Mg Cap.er.24h, 120 MG PO QAM Ergocalciferol (Vitamin D2) (Vitamin D2) 50,000 Units Cap, 50,000 UNITS PO QWEEK THURSDAYS Ferrous Sulfate (Feosol) 325 Mg Tablet, 325 MG PO BID Fluticasone/Vilanterol (Breo Ellipta 200-25 Mcg INH) 1 Each Blst.w.dev, 1 PUFF INH QHS Gabapentin (Gabapentin) 800 Mg Tablet, 800 MG PO BID Levothyroxine Sodium (Levothyroxine Sodium) 50 Mcg Tablet, 50 MCG PO QAM Meloxicam (Meloxicam) 7.5 Mg Tablet, 7.5 MG PO BID Tamsulosin HCl (Flomax) 0.4 Mg Capsule, 0.4 MG PO QAM Torsemide (Torsemide) 20 Mg Tablet, 40 MG PO QAM Umeclidinium [place] (Incruse Ellipta) 62.5 Mcg Blst.w.dev, 1 PUFF INH QHS Vit C/E/Zn/Coppr/Lutein/Zeaxan (Preservision Areds 2 Softgel) 1 Each Capsule, 1 CAP PO BID Scheduled PRN Albuterol Sulf (Albuterol Sulfate) 2.5 Mg/3 Ml Vial.neb, 1 VIAL INH Q8H PRN for SHORTNESS OF BREATH Albuterol Sulfate (Proair Hfa) 8.5 Gm Hfa.aer.ad, 2 PUFF INH Q4H PRN for SHORTNESS OF BREATH Allergies Coded Allergies: morphine (Verified Adverse Reaction, Intermediate, confusion, 01/18/20) A-FIB/CHADSVASC A-FIB History Current/History of A-Fib/PAF?: Yes Current PO Anticoag Therapy: Yes ANJU FRANCOIS MD Jul 19, 2020 18:37
[2020-07-19] MEDS: GABAPENTIN 400 MG CAP PO SCH (21:00)
[2020-07-19] MEDS: ACETAMINOPHEN 650MG ER TAB (TYLENOL ARTHRITIS) PO SCH (21:00)
[2020-07-19] MEDS: FERROUS SULFATE 325MG TAB PO SCH (21:00)
[2020-07-19] MEDS: PANTOPRAZOLE 40MG VIAL (C9113 PER 1) IV SCH (21:38)
[2020-07-19 23:32] LABS: HEMATOCRIT 24.8 % (42.0-52.0); HEMOGLOBIN 7.7 g/dl (13.5-17.5)
[2020-07-20] VITALS (10 sets, daily range): BP systolic 112–147; BP diastolic 58–162
[2020-07-20] MEDS ORDERED: CAPSAICIN 0.025% CR 60 GM TOP ONE ×2 (03:00→04:00)
[2020-07-20] MEDS: IPRATROPIUM 0.5MG/ALBUTEROL 2.5MG INH SOL UD 3ML (DUONEB) NEB PRN ×2 (03:11→09:25)
[2020-07-20 05:41] LABS: BASO % 0.2 % (0.0-1.0); EOS # 0.2 10^3/uL (0.0-0.5); EOS % 1.9 % (0.0-3.0); HEMATOCRIT 24.4 % (42.0-52.0); HEMOGLOBIN 7.6 g/dl (13.5-17.5); LYMPH # 1.5 10^3/uL (1.5-5.0); LYMPH % 14.3 % (24.0-44.0); MEAN CORPUSCULAR HEMOGLOBIN 29.9 pg (27.0-33.0); MEAN CORPUSCULAR HGB CONC 31.1 g/dl (32.0-36.5); MEAN CORPUSCULAR VOLUME 96.1 fl (80.0-96.0); MONO # 1.2 10^3/uL (0.0-0.8); MONO % 11.9 % (0.0-5.0); NEUTROPHILS # 7.3 10^3/uL (1.5-8.5); NEUTROPHILS % 71.1 % (36.0-66.0); PLATELET COUNT, AUTOMATED 288 10^3/uL (150-450); RED BLOOD COUNT 2.54 10^6/uL (4.30-6.10); WHITE BLOOD COUNT 10.3 10^3/uL (4.0-10.0)
[2020-07-20] MEDS: LEVOTHYROXINE 50MCG TABLET (0.05MG) PO SCH (06:00)
[2020-07-20 06:01] LABS: ALBUMIN 2.3 GM/DL (3.2-5.2); ALT/SGPT 12 U/L (12-78); BILIRUBIN,TOTAL 0.7 MG/DL (0.2-1.0); BLOOD UREA NITROGEN 28 MG/DL (7-18); CALCIUM LEVEL 8.1 MG/DL (8.8-10.2); CARBON DIOXIDE LEVEL 29 MEQ/L (21-32); CHLORIDE LEVEL 107 MEQ/L (98-107); CREATININE FOR GFR 1.16 MG/DL (0.70-1.30); GLOMERULAR FILTRATION RATE > 60.0 (>35); GLUCOSE, FASTING 97 MG/DL (70-100); MAGNESIUM LEVEL 2.5 MG/DL (1.8-2.4); PHOSPHORUS LEVEL 3.6 MG/DL (2.5-4.9); POTASSIUM SERUM 3.9 MEQ/L (3.5-5.1); SODIUM LEVEL 141 MEQ/L (136-145); TOTAL PROTEIN 5.9 GM/DL (6.4-8.2)
--- NOTE | 2020-07-20 07:20 | IPNPDOC ---
Date Seen The patient was seen on 07/20/20. Progress Note SUBJECTIVE: patient was seen and examined at bedside. No repeat bleeding overnight. Reports wheezing but SOB has improved. Duonebs ordered, RT called. Denies CP, fevers, chills. OBJECTIVE PHYSICAL EXAMINATION: VITAL SIGNS: Please see below. GENERAL APPEARANCE: NAD, comfortable. HEENT: PERRLA, EOMI. CARDIOVASCULAR: RRR, normal S1, S2. LUNGS: absent breath sounds RLL (lobectomy), otherwise CTAB in remaining lobes. Good inspiratory effort. ABDOMEN: obese, distended veins, no masses palpated, BS+. MUSCULOSKELETAL: no joint deformity. EXTREMITIES: no edema. NEUROLOGICAL: AAO x 2, moving all 4 extemities, follows commands. PSYCHIATRIC: AAOx2, oriented to person and place, not time. Somewhat confused. LABORATORY DATA, IMAGING STUDIES, MICROBIOLOGY: Please see below. DVT prophylaxis ordered?: Eugene Newton ASSESSMENT: 85 yo M with a hx of COPD, afib on eliquis, diastolic CHF, non-small cell lung ca (s/p RLL resection), MSSA bacteremia, discitis, cauda equina syndrome, presenting to the [facility] ED with a 3 day hx of lower GI bleeding. Complains of progressively worsening fatigue and shortness of breath. PLAN: 1. Hematochezia: BRPR for 3 days progressing to melena. VSS. Hg 5.6 -> 7.6. P rotonix 40 mg IV BID. Monitor for re-bleed. Given multiple cardiac co- morbidities, transfuse for Hgb above 8.0. Ordered unit#3. General surgery for scope if LGIB continues. CLD, advance as tolerated. 2. Afib: cardizem 120 mg qam. eliquis 5 mg BID. Holding eliquis. 3. CHF: torsemide 40 mg qam. chlorthalidone 12.5. 4. BPH: flomax 0.4 mg. 5. Hypothyroidism: levothyroxine 50 mcg qam. 6. Hx of bacteremia, discitis: noted keflex 500 mg POD BID - spoke to , meds were ordered by Dr. Bobby. 7. COPD: duonebs prn. to bring augustine ellipta incruse. DVT ppx: Lamar Knight. Holding eliquis given LGIB. VS, I&O, 24H, [facility] Vital Signs/I&O Vital Signs Date Time Temp Pulse Resp B/P (MAP) Pulse Ox O2 Delivery O2 Flow Rate FiO2 07/20/20 04:00 24 07/20/20 04:00 99.6 81 147/65 (92) 95 Nasal Cannula 3.0 I&O- Last 24 Hours up to 6 AM 07/20/20 05:59 Intake Total 1520 ml Balance 1520 ml Laboratory Data 24H LABS Laboratory Tests 2 07/19/20 14:47: Immature Granulocyte % (Auto) 0.9, Neutrophils (%) (Auto) 68.1H, Lymphocytes (%) (Auto) 15.7L, Monocytes (%) (Auto) 12.8H, Eosinophils (%) (Auto) 2.4, Basophils (%) (Auto) 0.1, Neutrophils # (Auto) 6.5, Lymphocytes # (Auto) 1.5, Monocytes # (Auto) 1.2H, Eosinophils # (Auto) 0.2, Basophils # (Auto) 0.0, Nucleated Red Blood Cells % (auto) 0.4H, Prothrombin Time 17.1H, Prothromb Time International Ratio 1.36, Anion Gap 6L, Glomerular Filtration Rate > 60.0, Lactic Acid Level 1.3, Calcium Level 8.3L, Total Bilirubin 0.3, Direct Bilirubin < 0.1, Aspartate Amino Transf (AST/SGOT) 12, Alanine Aminotransferase (ALT/SGPT) 13, Alkaline Phosphatase 79, Total Creatine Kinase 33L, Creatine Kinase MB 2.4, Creatine Kinase MB Relative Index 7.27H, Troponin I < 0.02, GE-Wot-G-Type Natriuretic Peptide 1938H, Total Protein 5.6L, Albumin 2.4L, Albumin/Globulin Ratio 0.8, Thyroid Stimulating Hormone (TSH) 2.180 07/19/20 15:25: Blood Gas Bicarbonate Standard 28.5, Venous Blood pH 7.376, Venous Blood Partial Pressure CO2 52.5H, Venous Blood Partial Pressure O2 98.3H, Venous Blood Total Carbon Dioxide 31.7H, Venous Blood HCO3 30.1H, Venous Blood Oxygen Saturation 97.1H, Venous Blood Base Excess 4.4H 07/20/20 05:08: Immature Granulocyte % (Auto) 0.6, Neutrophils (%) (Auto) 71.1H, Lymphocytes (%) (Auto) 14.3L, Monocytes (%) (Auto) 11.9H, Eosinophils (%) (Auto) 1.9, Basophils (%) (Auto) 0.2, Neutrophils # (Auto) 7.3, Lymphocytes # (Auto) 1.5, Monocytes # (Auto) 1.2H, Eosinophils # (Auto) 0.2, Basophils # (Auto) 0.0, Nucleated Red Blood Cells % (auto) 0.5H, Anion Gap 5L, Glomerular Filtration Rate > 60.0, Calcium Level 8.1L, Total Bilirubin 0.7#, Aspartate Amino Transf (AST/SGOT) 11, Alanine Aminotransferase (ALT/SGPT) 12, Alkaline Phosphatase 77, Total Protein 5.9L, Albumin 2.3L, Albumin/Globulin Ratio 0.6, Phosphorus Level 3.6, Magnesium Level 2.5H CBC/BMP Laboratory Tests 07/19/20 14:47 07/19/20 23:20 07/20/20 05:08 Microbiology Microbiology 07/19/20 Blood Culture, Received Pending 07/19/20 Blood Culture, Received Pending ANJU FRANCOIS MD Jul 20, 2020 07:20
[2020-07-20] MEDS ORDERED: FLUBLOK(EGG FREE)(QUAD)INFLUENZA VACC 0.5ML SYRINGE 18YRS & OLDER IM ONE (09:00)
[2020-07-20] MEDS: GABAPENTIN 400 MG CAP PO SCH ×2 (09:27→20:19)
[2020-07-20] MEDS: ACETAMINOPHEN 650MG ER TAB (TYLENOL ARTHRITIS) PO SCH ×3 (09:27→20:18)
[2020-07-20] MEDS: FERROUS SULFATE 325MG TAB PO SCH ×2 (09:28→20:18)
[2020-07-20] MEDS: CHLORTHALIDONE 12.5MG PER 1/2 TABLET PO SCH (09:28)
[2020-07-20] MEDS: PANTOPRAZOLE 40MG VIAL (C9113 PER 1) IV SCH ×2 (09:28→20:21)
[2020-07-20] MEDS: TAMSULOSIN 0.4 MG CAP PO SCH (09:28)
[2020-07-20] MEDS: TORSEMIDE 20 MG TAB PO SCH (09:28)
[2020-07-20] MEDS: SYMBICORT 160/4.5MCG INHALER 6GM INH SCH ×2 (13:47→19:50)
[2020-07-20] MEDS ORDERED: GASTROGRAFIN SOLUTION 30ML (Q9963) As Ordered ONE (16:42)
[2020-07-20 17:53] LABS: HEMATOCRIT 26.8 % (42.0-52.0); HEMOGLOBIN 8.3 g/dl (13.5-17.5)
[2020-07-20] MEDS ORDERED: ISOVUE-370 76% 100ML VIAL As Ordered ONE (18:28)
--- NOTE | 2020-07-20 19:06 | REPVR ---
PROCEDURE INFORMATION: Exam: CT Abdomen And Pelvis Without And With Contrast Exam date and time: 07/20/2020 6:27 PM Age: 85 years old Clinical indication: Condition or disease; Other: Gi bleed; Additional info: Lower gib TECHNIQUE: Imaging protocol: Computed tomography of the abdomen and pelvis without and with intravenous contrast. Radiation optimization: All CT scans at this facility use at least one of these dose optimization techniques: automated exposure control; mA and/or kV adjustment per patient size (includes targeted exams where dose is matched to clinical indication); or iterative reconstruction. Contrast material: ISOVUE 370; Contrast volume: 100 ml; Contrast route: INTRAVENOUS (IV); COMPARISON: CT ABD PELVIS WITH CONTRAST 02/17/2017 8:57 AM FINDINGS: Lungs: Pulmonary fibrosis within the lung bases, worse on the right. Pleural space: Small bilateral pleural effusions. Bilateral pleural calcification. Calcified and noncalcified hilar and subcarinal lymph nodes. Liver: Tiny cyst within the left hepatic lobe, unchanged. Gallbladder and bile ducts: Normal. No calcified stones. No ductal dilation. Pancreas: Normal. No ductal dilation. Spleen: Indeterminate low-density lesions within the spleen at least 2 of which are new compared to the previous study. Adrenals: Normal. No mass. Kidneys and ureters: Left renal cyst. Normal right kidney. No renal stone or hydronephrosis. Stomach and bowel: Diverticulosis of the distal descending and sigmoid colon. No diverticulitis or colitis. The stomach and small bowel are unremarkable. Appendix: No evidence of appendicitis. Intraperitoneal space: Unremarkable. No free air. No significant fluid collection. Vasculature: Atherosclerosis of the abdominal aorta and branch vessels. No aneurysm. Lymph nodes: No pathologically enlarged lymph nodes within the abdomen or pelvis. Bladder: Mild generalized wall thickening of the urinary bladder, likely secondary to under distention. Cystitis is not excluded. Reproductive: Unremarkable as visualized. Bones/joints: Degenerative spondylosis of the lumbar spine. Old anterior wedge fracture deformity of L2 with mild posterior retropulsion of the L2 superior endplate and mild retrolisthesis of L1 resulting in mild to moderate bony spinal stenosis. Soft tissues: Unremarkable. IMPRESSION: 1. Bilateral lower lobe pulmonary fibrosis. 2. Bilateral pleural calcifications and small pleural effusions. 3. Indeterminate low-density lesions within the spleen, at least 2 of which are new compared to the previous study. Evaluation with PET/CT versus MRI is recommended as per ACR white paper guidelines on the management of incidental splenic lesions. Electronically signed by: Waldo Smith On 07/20/2020 19:05:29 PM
[2020-07-20] MEDS ORDERED: SYMBICORT 160/4.5MCG INHALER 6GM INH SCH (20:00)
[2020-07-20] MEDS: CEPHALEXIN 500 MG CAP PO SCH (20:19)
[2020-07-21] VITALS: BP 118/54
[2020-07-21 04:00] VITALS: BP 135/58
[2020-07-21 04:45] LABS: BASO % 0.3 % (0.0-1.0); EOS # 0.3 10^3/uL (0.0-0.5); EOS % 3.1 % (0.0-3.0); HEMATOCRIT 27.8 % (42.0-52.0); HEMOGLOBIN 8.7 g/dl (13.5-17.5); LYMPH # 1.1 10^3/uL (1.5-5.0); LYMPH % 10.1 % (24.0-44.0); MEAN CORPUSCULAR HEMOGLOBIN 30.2 pg (27.0-33.0); MEAN CORPUSCULAR HGB CONC 31.3 g/dl (32.0-36.5); MEAN CORPUSCULAR VOLUME 96.5 fl (80.0-96.0); MONO # 1.4 10^3/uL (0.0-0.8); MONO % 12.9 % (0.0-5.0); NEUTROPHILS # 7.7 10^3/uL (1.5-8.5); NEUTROPHILS % 73.1 % (36.0-66.0); PLATELET COUNT, AUTOMATED 286 10^3/uL (150-450); RED BLOOD COUNT 2.88 10^6/uL (4.30-6.10); WHITE BLOOD COUNT 10.5 10^3/uL (4.0-10.0)
[2020-07-21 05:08] LABS: ALBUMIN 2.3 GM/DL (3.2-5.2); ALT/SGPT 13 U/L (12-78); BILIRUBIN,TOTAL 0.7 MG/DL (0.2-1.0); BLOOD UREA NITROGEN 23 MG/DL (7-18); CALCIUM LEVEL 8.2 MG/DL (8.8-10.2); CARBON DIOXIDE LEVEL 30 MEQ/L (21-32); CHLORIDE LEVEL 106 MEQ/L (98-107); GLOMERULAR FILTRATION RATE > 60.0 (>35); GLUCOSE, FASTING 89 MG/DL (70-100); MAGNESIUM LEVEL 2.2 MG/DL (1.8-2.4); PHOSPHORUS LEVEL 3.5 MG/DL (2.5-4.9); SODIUM LEVEL 141 MEQ/L (136-145); TOTAL PROTEIN 5.9 GM/DL (6.4-8.2)
[2020-07-21] MEDS: LEVOTHYROXINE 50MCG TABLET (0.05MG) PO SCH (05:20)
[2020-07-21 08:00] VITALS: BP 134/63
[2020-07-21] MEDS: SYMBICORT 160/4.5MCG INHALER 6GM INH SCH (08:00)
[2020-07-21] MEDS: PANTOPRAZOLE 40MG VIAL (C9113 PER 1) IV SCH (09:17)
[2020-07-21] MEDS: ACETAMINOPHEN 650MG ER TAB (TYLENOL ARTHRITIS) PO SCH (09:18)
[2020-07-21] MEDS: CHLORTHALIDONE 12.5MG PER 1/2 TABLET PO SCH (09:18)
[2020-07-21] MEDS: TORSEMIDE 20 MG TAB PO SCH (09:18)
[2020-07-21 09:19] VITALS: BP 135/58
[2020-07-21] MEDS: FERROUS SULFATE 325MG TAB PO SCH (09:19)
[2020-07-21] MEDS: TAMSULOSIN 0.4 MG CAP PO SCH (09:19)
[2020-07-21] MEDS: CEPHALEXIN 500 MG CAP PO SCH (09:19)
[2020-07-21] MEDS: GABAPENTIN 400 MG CAP PO SCH (09:19)
--- NOTE | 2020-07-21 10:44 | DS.PDOC ---
Discharge Summary General Date of Admission Jul 19, 2020 at 18:26 Date of Discharge 07/21/2020 Discharge Summary PROCEDURES PERFORMED DURING STAY: [None]. ADMITTING DIAGNOSES: 1. LGIB 2. Afib 3. CHF 4. BPH 5. Hypothyroidism 6. COPD 7. Anemia 8. Hx of non-small cell lung cancer 9. HTN DISCHARGE DIAGNOSES: 1. LGIB 2. Afib 3. CHF 4. BPH 5. Hypothyroidism 6. COPD 7. Anemia 8. Hx of non-small cell lung cancer 9. HTN COMPLICATIONS/CHIEF COMPLAINT: Gi Bleed. HISTORY OF PRESENT ILLNESS: 85 yo M presenting to the ED c/o presented to the ED with progressively worsening fatigue and shortness of breath. He further reports having had gross BRBPR for three days last week starting on , into thursday. The hematochezia progressed to melena. Denies heavy etoh use. Denies hematemesis. Denies prior episode of GIB. Takes eliquis for afib. Further endorsed headache, which has now resolved. CT head wo contrast showed no bleed. Hgb 5.6 in ED. Started blood transfusion. Admitted for acute LGIB. HOSPITAL COURSE: Patient admitted for blood transfusion, was given a total of 3 units pRBC, and Hg improved to 8.7 (from 5.8). CT abdomen pelvis w wo contrast done, showed no obvious source of bleed - but noted new low-density lesions within spleen (2 of which are new), recommended PET/CT vs MRI to be done. General surgery was consulted for evaluation, however patient and family insisted on being discharged. The declined surgical eval, and did not wish to have endoscopy done on this admission. Patient and family decided to leave [place]. Follow up instructions were provided to patient and Alicja Harvey. DISCHARGE MEDICATIONS: Please see below. ALLERGIES: Please see below. PHYSICAL EXAMINATION ON DISCHARGE: VITAL SIGNS: Please see below. GENERAL APPEARANCE: NAD, comfortable. HEENT: PERRLA, EOMI. CARDIOVASCULAR: RRR, normal S1, S2. LUNGS: absent breath sounds RLL (lobectomy), otherwise CTAB in remaining lobes. Good inspiratory effort. ABDOMEN: obese, distended veins, no masses palpated, BS+. MUSCULOSKELETAL: no joint deformity. EXTREMITIES: no edema. NEUROLOGICAL: AAO x 3, moving all 4 extemities, follows commands. PSYCHIATRIC: AAOx3 LABORATORY DATA: Please see below. IMAGING: CT abdo pelvis w wo contrast IMPRESSION: 1. Bilateral lower lobe pulmonary fibrosis. 2. Bilateral pleural calcifications and small pleural effusions. 3. Indeterminate low-density lesions within the spleen, at least 2 of which are new compared to the previous study. Evaluation with PET/CT versus MRI is recommended as per ACR white paper guidelines on the management of incidental splenic lesions. CT head (07/19/20) IMPRESSION: Sinus disease. No intracranial bleed. CXR (07/19/2020) IMPRESSION: No change. DISCHARGE PLAN: patient left AMA with family DISPOSITION: Left AMA with family DISCHARGE INSTRUCTIONS: 1. follw up with PCP within 1 week. 2. IF develop repeat bleeding, please call 911 or return to emergency room 3. Follow up with GI within 2-4 weeks. ITEMS TO FOLLOWUP ON ON OUTPATIENT: 1. noted low density lesions within spleen at least 2 are new compared to prior study. Recommend PET/CT vs MRI as outpatient, as patient left AMA. DISCHARGE CONDITION: [Stable]. Vital Signs/I&Os Vital Signs Date Time Temp Pulse Resp B/P (MAP) Pulse Ox O2 Delivery O2 Flow Rate FiO2 07/21/20 09:19 85 135/58 07/21/20 08:00 99.3 18 94 Nasal Cannula 3.0 I&O- Last 24 Hours up to 6 AM 07/21/20 05:59 Intake Total 1045 ml Output Total 1100 ml Balance -55 ml Laboratory Data Labs 24H Laboratory Tests 2 07/21/20 04:12: Immature Granulocyte % (Auto) 0.5, Neutrophils (%) (Auto) 73.1H, Lymphocytes (%) (Auto) 10.1L, Monocytes (%) (Auto) 12.9H, Eosinophils (%) (Auto) 3.1H, Basophils (%) (Auto) 0.3, Neutrophils # (Auto) 7.7, Lymphocytes # (Auto) 1.1L, Monocytes # (Auto) 1.4H, Eosinophils # (Auto) 0.3, Basophils # (Auto) 0.0, Nucleated Red Blood Cells % (auto) 0.3H, Anion Gap 5L, Glomerular Filtration Rate > 60.0, Calcium Level 8.2L, Phosphorus Level 3.5, Magnesium Level 2.2, Total Bilirubin 0.7, Aspartate Amino Transf (AST/SGOT) 12, Alanine Aminotransferase (ALT/SGPT) 13, Alkaline Phosphatase 80, Total Protein 5.9L, Albumin 2.3L, Albumin/Globulin Ratio 0.6 CBC/BMP Laboratory Tests 07/20/20 17:33 07/21/20 04:12 Microbiology Microbiology 07/19/20 Blood Culture - Preliminary, Resulted No growth after 24 hours . All specim... 07/19/20 Blood Culture - Preliminary, Resulted No growth after 24 hours . All specim... Discharge Medications Scheduled Acetaminophen (Tylenol Arthritis) 650 Mg Tablet.er, 650 MG PO TID, (Reported) Apixaban (Eliquis) 5 Mg Tablet, 5 MG PO BID, (Reported) Cephalexin (Keflex) 500 Mg Capsule, 500 MG PO BID, (Reported) Chlorthalidone (Chlorthalidone) 25 Mg Tablet, 12.5 MG PO QAM, (Reported) Diltiazem HCl (Cartia Xt) 120 Mg Cap.er.24h, 120 MG PO QAM, (Reported) Ergocalciferol (Vitamin D2) (Vitamin D2) 50,000 Units Cap, 50,000 UNITS PO QWEEK , (Reported) THURSDAYS Ferrous Sulfate (Feosol) 325 Mg Tablet, 325 MG PO BID, (Reported) Fluticasone/Vilanterol (Breo Ellipta 200-25 Mcg INH) 1 Each Blst.w.dev, 1 PUFF INH QHS, (Reported) Gabapentin (Gabapentin) 800 Mg Tablet, 800 MG PO BID, (Reported) Levothyroxine Sodium (Levothyroxine Sodium) 50 Mcg Tablet, 50 MCG PO QAM, (Reported) Meloxicam (Meloxicam) 7.5 Mg Tablet, 7.5 MG PO BID, (Reported) Tamsulosin HCl (Flomax) 0.4 Mg Capsule, 0.4 MG PO QAM, (Reported) Torsemide (Torsemide) 20 Mg Tablet, 40 MG PO QAM, (Reported) Umeclidinium [place] (Incruse Ellipta) 62.5 Mcg Blst.w.dev, 1 PUFF INH QHS, (Reported) Vit C/E/Zn/Coppr/Lutein/Zeaxan (Preservision Areds 2 Softgel) 1 Each Capsule, 1 CAP PO BID, (Reported) Scheduled PRN Albuterol Sulf (Albuterol Sulfate) 2.5 Mg/3 Ml Vial.neb, 1 VIAL INH Q8H PRN for SHORTNESS OF BREATH, (Reported) Albuterol Sulfate (Proair Hfa) 8.5 Gm Hfa.aer.ad, 2 PUFF INH Q4H PRN for SHORTNESS OF BREATH, (Reported) Allergies Coded Allergies: morphine (Verified Adverse Reaction, Intermediate, confusion, 01/18/20) ANJU FRANCOIS MD Jul 21, 2020 10:44
[2020-07-21] MEDS ORDERED: PROT1TAB2 PO ×2 (12:17→13:26)
--- NOTE | 2020-07-30 12:16 | ECGEPIP ---
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
--- NOTE | 2020-08-14 14:18 | REP ---
PORTABLE CHEST X-RAY CLINICAL: Shortness of breath. COMPARISON: 07/19/2020, 01/18/2020. FINDINGS: Findings are essentially unchanged through 01/18/2020, including cardiomegaly, diffuse chronic interstitial changes, and right-sided pleural parenchymal changes including scarring and elevation to the right hemidiaphragm with blunting of the costophrenic angle. Underlying acute pulmonary vascular congestion/interstitial edema and possible basilar atelectasis, as well as effusion cannot be excluded. IMPRESSION: Relatively chronic stable changes similar to 01/18/2020. Stable cardiomegaly. Cannot exclude subtle superimposed acute process including early interstitial edema or basilar opacities. MTDD
== END 2020-07-21 14:03 | disposition left against medical advice (07) | DRG 378 ==
LOC: M ED 14:38 → M ED INP 18:26 → ENRESERVTM 23:00 → ENRESERVDT 23:00 → M PCU 07-20 00:04
PROVIDERS: ADMIT Family Medicine; ATTEND Family Medicine
PROC: 30233N1 Transfusion of Nonautologous Red Blood Cells into Peripheral Vein, Percutaneous Approach (ICD-10-PCS; principal; 2020-07-19)
DX: K92.2 Gastrointestinal hemorrhage, unspecified (principal); C34.90 Malignant neoplasm of unspecified part of unspecified bronchus or lung; I48.91 Unspecified atrial fibrillation; K92.1 Melena; J44.9 Chronic obstructive pulmonary disease, unspecified; N40.0 Benign prostatic hyperplasia without lower urinary tract symptoms; E03.9 Hypothyroidism, unspecified; D64.9 Anemia, unspecified; I11.0 Hypertensive heart disease with heart failure; I50.9 Heart failure, unspecified; Z79.899 Other long term (current) drug therapy; Z88.5 Allergy status to narcotic agent; G47.33 Obstructive sleep apnea (adult) (pediatric)

== ENCOUNTER → 2020-08-07 | Outpatient (CLI) | payer MEDICARE, OTHER ==
[~2020-08-07] MED LIST changes: +ACET650T61 PO; +DILT120C89 PO; +FEOS200T2 PO; +KEFL500C17 PO; +MELO7.5T35 PO; +PROT1TAB2 PO; +QC A650T3 PO
[2020-08-07 17:22] LABS: BASO % 0.5 % (0.0-1.0); EOS # 0.2 10^3/uL (0.0-0.5); EOS % 2.3 % (0.0-3.0); HEMATOCRIT 36.4 % (42.0-52.0); HEMOGLOBIN 10.8 g/dl (13.5-17.5); LYMPH # 1.4 10^3/uL (1.5-5.0); MEAN CORPUSCULAR HEMOGLOBIN 29.5 pg (27.0-33.0); MEAN CORPUSCULAR HGB CONC 29.7 g/dl (32.0-36.5); MEAN CORPUSCULAR VOLUME 99.5 fl (80.0-96.0); MONO # 1.1 10^3/uL (0.0-0.8); MONO % 14.7 % (0.0-5.0); NEUTROPHILS % 64.2 % (36.0-66.0); PLATELET COUNT, AUTOMATED 328 10^3/uL (150-450); RED BLOOD COUNT 3.66 10^6/uL (4.30-6.10); WHITE BLOOD COUNT 7.8 10^3/uL (4.0-10.0)
[2020-08-07 17:48] LABS: CALCIUM LEVEL 9.2 MG/DL (8.8-10.2); CREATININE FOR GFR 1.41 MG/DL (0.70-1.30); GLOMERULAR FILTRATION RATE 50.9 (>35); POTASSIUM SERUM 4.4 MEQ/L (3.5-5.1)
== END ==
LOC: M PLALAB 15:43
PROVIDERS: ATTEND Physician Assistant
DX: K92.1 Melena (principal); I50.20 Unspecified systolic (congestive) heart failure

== ENCOUNTER → 2020-11-26 | Outpatient (REF) | payer MEDICARE, OTHER ==
[~2020-11-26] MED LIST changes: -LISI-542 PO; +LISI-898 PO
[2020-11-26 15:09] LABS: BASO # 0.1 10^3/uL (0.0-0.2); BASO % 0.5 % (0.0-1.0); EOS # 0.2 10^3/uL (0.0-0.5); HEMATOCRIT 39.9 % (42.0-52.0); HEMOGLOBIN 11.9 g/dl (13.5-17.5); LYMPH # 1.6 10^3/uL (1.5-5.0); MEAN CORPUSCULAR HEMOGLOBIN 28.5 pg (27.0-33.0); MEAN CORPUSCULAR HGB CONC 29.8 g/dl (32.0-36.5); MEAN CORPUSCULAR VOLUME 95.7 fl (80.0-96.0); MONO # 1.2 10^3/uL (0.0-0.8); MONO % 12.1 % (0.0-5.0); NEUTROPHILS # 6.6 10^3/uL (1.5-8.5); NEUTROPHILS % 67.8 % (36.0-66.0); PLATELET COUNT, AUTOMATED 318 10^3/uL (150-450); RED BLOOD COUNT 4.17 10^6/uL (4.30-6.10); WHITE BLOOD COUNT 9.7 10^3/uL (4.0-10.0)
[2020-11-26 15:43] LABS: ERYTHROCYTE SEDIMENTATION RATE 83 mm/hr (0-20)
[2020-11-26 15:45] LABS: ALBUMIN 2.8 GM/DL (3.2-5.2); ALT/SGPT 11 U/L (12-78); BILIRUBIN,TOTAL 0.3 MG/DL (0.2-1.0); BLOOD UREA NITROGEN 20 MG/DL (7-18); CALCIUM LEVEL 8.7 MG/DL (8.8-10.2); CARBON DIOXIDE LEVEL 32 MEQ/L (21-32); CHLORIDE LEVEL 101 MEQ/L (98-107); CREATININE FOR GFR 1.06 MG/DL (0.70-1.30); GLOMERULAR FILTRATION RATE > 60.0 (>35); GLUCOSE, FASTING 130 MG/DL (70-100); POTASSIUM SERUM 4.1 MEQ/L (3.5-5.1); SODIUM LEVEL 141 MEQ/L (136-145); TOTAL PROTEIN 6.7 GM/DL (6.4-8.2)
== END ==
LOC: M SFHCPLAZ 12:28
PROVIDERS: ATTEND Internal Medicine Infectious Disease
DX: M46.47 Discitis, unspecified, lumbosacral region (principal)
CPT/HCPCS: 36415; 80053; 85025; 85652; 86140; G0463

== ENCOUNTER → 2020-12-21 | Outpatient (REF) | payer MEDICARE, OTHER ==
[~2020-12-21] MED LIST changes: +LISI-542 PO; -LISI-898 PO
[2020-12-21 14:12] LABS: CHOLESTEROL RISK RATIO 3.358 (<5); FREE T4 1.13 NG/DL (0.76-1.46); THYROID STIMULATING HORMONE 3.26 uIU/ML (0.358-3.740)
== END ==
LOC: M SFHCPLAZ 11:25
PROVIDERS: ATTEND Physician Assistant
DX: E03.9 Hypothyroidism, unspecified (principal); E78.00 Pure hypercholesterolemia, unspecified

== ENCOUNTER → 2021-02-04 | Outpatient (CLI) | payer MEDICARE, OTHER ==
[~2021-02-04] MED LIST changes: -LISI-542 PO; +LISI-898 PO
== END ==
LOC: M PT 14:00
PROVIDERS: ATTEND Physician Assistant
DX: R26.81 Unsteadiness on feet (principal)

== ENCOUNTER → 2021-04-23 | Outpatient (REF) | payer MEDICARE, OTHER ==
[~2021-04-23] MED LIST changes: +GABA-283 PO; -GABA-845 PO
[2021-04-23 14:32] LABS: BLOOD UREA NITROGEN 14 MG/DL (7-18); CALCIUM LEVEL 8.8 MG/DL (8.8-10.2); CARBON DIOXIDE LEVEL 27 MEQ/L (21-32); CHLORIDE LEVEL 105 MEQ/L (98-107); CREATININE FOR GFR 0.86 MG/DL (0.70-1.30); GLOMERULAR FILTRATION RATE > 60.0 (>35); GLUCOSE, FASTING 85 MG/DL (70-100); NT-PRO BNP 1544 PG/ML (<450); POTASSIUM SERUM 4.4 MEQ/L (3.5-5.1); SODIUM LEVEL 141 MEQ/L (136-145)
== END ==
LOC: M SHH 13:23
PROVIDERS: ATTEND Physician Assistant
DX: I50.32 Chronic diastolic (congestive) heart failure (principal); I11.0 Hypertensive heart disease with heart failure

== ENCOUNTER → 2021-05-07 | Outpatient (REF) | payer MEDICARE, OTHER ==
[~2021-05-07] MED LIST changes: +ERGO500029 PO; -VITA50005 PO
[2021-05-07 16:08] LABS: ALBUMIN 2.5 GM/DL (3.2-5.2); ALT/SGPT 11 U/L (12-78); BILIRUBIN,TOTAL 0.3 MG/DL (0.2-1.0); BLOOD UREA NITROGEN 17 MG/DL (7-18); CARBON DIOXIDE LEVEL 28 MEQ/L (21-32); CHLORIDE LEVEL 106 MEQ/L (98-107); CREATININE FOR GFR 0.79 MG/DL (0.70-1.30); GLOMERULAR FILTRATION RATE > 60.0 (>35); GLUCOSE, FASTING 140 MG/DL (70-100); POTASSIUM SERUM 4.7 MEQ/L (3.5-5.1); SODIUM LEVEL 141 MEQ/L (136-145); TOTAL PROTEIN 6.5 GM/DL (6.4-8.2)
[2021-05-07 17:08] LABS: HEMOGLOBIN A1c 6.2 %
== END ==
LOC: M SHH 15:15
PROVIDERS: ATTEND Physician Assistant
DX: R73.01 Impaired fasting glucose (principal)

== ENCOUNTER → 2021-07-01 | Outpatient (CLI) | payer MEDICARE, OTHER ==
[2021-07-01 15:32] LABS: BASO # 0.1 10^3/uL (0.0-0.2); BASO % 0.4 % (0.0-1.0); EOS # 0.2 10^3/uL (0.0-0.5); EOS % 2.1 % (0.0-3.0); HEMATOCRIT 40.6 % (42.0-52.0); HEMOGLOBIN 12.7 g/dl (13.5-17.5); LYMPH # 1.4 10^3/uL (1.5-5.0); LYMPH % 12.1 % (24.0-44.0); MEAN CORPUSCULAR HEMOGLOBIN 29.6 pg (27.0-33.0); MEAN CORPUSCULAR HGB CONC 31.3 g/dl (32.0-36.5); MEAN CORPUSCULAR VOLUME 94.6 fl (80.0-96.0); MONO # 1.4 10^3/uL (0.0-0.8); MONO % 11.8 % (2.0-8.0); NEUTROPHILS # 8.5 10^3/uL (1.5-8.5); NEUTROPHILS % 72.6 % (36.0-66.0); PLATELET COUNT, AUTOMATED 349 10^3/uL (150-450); RED BLOOD COUNT 4.29 10^6/uL (4.30-6.10); WHITE BLOOD COUNT 11.7 10^3/uL (4.0-10.0)
[2021-07-01 20:36] LABS: ERYTHROCYTE SEDIMENTATION RATE 78 mm/hr (0-20)
== END ==
LOC: M PLALAB 11:51
PROVIDERS: ATTEND Internal Medicine Infectious Disease
DX: M46.47 Discitis, unspecified, lumbosacral region (principal); Z79.899 Other long term (current) drug therapy
CPT/HCPCS: 36415; 85025; 85652; 86140; G0463

== ENCOUNTER → 2021-09-06 | Outpatient (CLI) | payer MEDICARE, OTHER ==
[2021-09-06 18:29] LABS: C REACTIVE PROTEIN QUANTITATIV 1.44 MG/DL (0.00-0.30)
== END ==
LOC: M LAB 17:19
PROVIDERS: ATTEND Nurse Practitioner Family
DX: N40.1 Benign prostatic hyperplasia with lower urinary tract symptoms (principal)
CPT/HCPCS: 36415; 85652; 86140; G0103

== ENCOUNTER → 2021-09-07 | Outpatient (REF) | payer MEDICARE, OTHER ==
[2021-09-07 11:27] LABS: APPEARANCE, URINE CLOUDY (CLEAR); BACTERIA, URINE AUTO 1+ (NEGATIVE); BILIRUBIN, URINE AUTO NEGATIVE (NEGATIVE); BLOOD, URINE BLOOD NEGATIVE (NEGATIVE); COLOR, URINE YELLOW (YELLOW); GLUCOSE, URINE (UA) AUTO NEGATIVE (NEGATIVE); KETONE, URINE AUTO TRACE mg/dL (NEGATIVE); LEUKOCYTE ESTERASE, URINE AUTO 3+ (NEGATIVE); MUCUS, URINE SMALL (NEGATIVE); NITRITE, URINE AUTO NEGATIVE (NEGATIVE); PROTEIN, URINE AUTO NEGATIVE (NEGATIVE); RBC, URINE AUTO 6 /HPF (0-3); SQUAMOUS EPITHELIAL CELL UR AU 2 /HPF (0-6); WBC, URINE AUTO TNTC /HPF (0-3)
== END ==
LOC: M LAB REF 11:03
PROVIDERS: ATTEND Nurse Practitioner Family
DX: N40.1 Benign prostatic hyperplasia with lower urinary tract symptoms (principal)

== ENCOUNTER → 2022-02-14 | Outpatient (CLI) | payer MEDICARE, OTHER ==
[~2022-02-14] MED LIST changes: -LISI-898 PO; +LISI5TAB11 PO
[2022-02-14 17:35] LABS: BASO % 0.4 % (0.0-1.0); EOS # 0.2 10^3/uL (0.0-0.5); EOS % 1.7 % (0.0-3.0); HEMATOCRIT 44.2 % (42.0-52.0); HEMOGLOBIN 13.9 g/dl (13.5-17.5); LYMPH # 1.9 10^3/uL (1.5-5.0); LYMPH % 18.8 % (24.0-44.0); MEAN CORPUSCULAR HEMOGLOBIN 29.4 pg (27.0-33.0); MEAN CORPUSCULAR HGB CONC 31.4 g/dl (32.0-36.5); MEAN CORPUSCULAR VOLUME 93.6 fl (80.0-96.0); MONO # 1.1 10^3/uL (0.0-0.8); MONO % 11.4 % (2.0-8.0); NEUTROPHILS # 6.7 10^3/uL (1.5-8.5); PLATELET COUNT, AUTOMATED 292 10^3/uL (150-450); RED BLOOD COUNT 4.72 10^6/uL (4.30-6.10)
[2022-02-14 17:55] LABS: ALT/SGPT 14 U/L (12-78); BILIRUBIN,TOTAL 0.4 MG/DL (0.2-1.0); BLOOD UREA NITROGEN 23 MG/DL (7-18); CALCIUM LEVEL 9.3 MG/DL (8.8-10.2); CARBON DIOXIDE LEVEL 32 MEQ/L (21-32); CHLORIDE LEVEL 104 MEQ/L (98-107); CHOLESTEROL LEVEL 183 MG/DL (<200); CHOLESTEROL RISK RATIO 3.388 (<5); CREATININE FOR GFR 1.05 MG/DL (0.70-1.30); FREE T4 1.24 NG/DL (0.76-1.46); GLOMERULAR FILTRATION RATE > 60.0 (>35); GLUCOSE, FASTING 99 MG/DL (70-100); HDL CHOLESTEROL 54 MG/DL (>40); LDL CHOLESTEROL 112 MG/DL (<100); NON-HDL-C 129 MG/DL; POTASSIUM SERUM 4.7 MEQ/L (3.5-5.1); SODIUM LEVEL 140 MEQ/L (136-145); TOTAL PROTEIN 7.2 GM/DL (6.4-8.2); TRIGLYCERIDES LEVEL 85 MG/DL (<150)
[2022-02-14 17:56] LABS: HEMOGLOBIN A1c 6.2 %
== END ==
LOC: M PLALAB 14:13
PROVIDERS: ATTEND Nurse Practitioner Family
DX: E78.5 Hyperlipidemia, unspecified (principal); I10 Essential (primary) hypertension; R73.09 Other abnormal glucose; E03.9 Hypothyroidism, unspecified

== ENCOUNTER → 2022-06-18 | Outpatient (CLI) | payer MEDICARE, OTHER ==
[~2022-06-18] MED LIST changes: +ALBU2.5V10 INH; -ALBU83IN INH
[2022-06-18 15:22] LABS: BASO # 0.1 10^3/uL (0.0-0.2); BASO % 0.4 % (0.0-1.0); EOS # 0.2 10^3/uL (0.0-0.5); HEMATOCRIT 44.8 % (42.0-52.0); HEMOGLOBIN 14.5 g/dl (13.5-17.5); LYMPH # 1.6 10^3/uL (1.5-5.0); LYMPH % 13.1 % (24.0-44.0); MEAN CORPUSCULAR HEMOGLOBIN 30.8 pg (27.0-33.0); MEAN CORPUSCULAR HGB CONC 32.4 g/dl (32.0-36.5); MEAN CORPUSCULAR VOLUME 95.1 fl (80.0-96.0); MONO # 1.2 10^3/uL (0.0-0.8); MONO % 9.9 % (2.0-8.0); NEUTROPHILS # 8.8 10^3/uL (1.5-8.5); NEUTROPHILS % 73.8 % (36.0-66.0); PLATELET COUNT, AUTOMATED 297 10^3/uL (150-450); RED BLOOD COUNT 4.71 10^6/uL (4.30-6.10); WHITE BLOOD COUNT 11.9 10^3/uL (4.0-10.0)
[2022-06-18 15:55] LABS: ALT/SGPT 18 U/L (12-78); BILIRUBIN,TOTAL 0.4 MG/DL (0.2-1.0); BLOOD UREA NITROGEN 21 MG/DL (7-18); CALCIUM LEVEL 9.4 MG/DL (8.8-10.2); CARBON DIOXIDE LEVEL 30 MEQ/L (21-32); CHLORIDE LEVEL 103 MEQ/L (98-107); CHOLESTEROL LEVEL 162 MG/DL (<200); CHOLESTEROL RISK RATIO 3.446 (<5); FREE T4 1.29 NG/DL (0.76-1.46); GLOMERULAR FILTRATION RATE > 60.0 (>35); GLUCOSE, FASTING 100 MG/DL (70-100); HDL CHOLESTEROL 47 MG/DL (>40); LDL CHOLESTEROL 97 MG/DL (<100); NON-HDL-C 115 MG/DL; NT-PRO BNP 943 PG/ML (<450); POTASSIUM SERUM 4.8 MEQ/L (3.5-5.1); SODIUM LEVEL 138 MEQ/L (136-145); TOTAL PROTEIN 7.6 GM/DL (6.4-8.2); TRIGLYCERIDES LEVEL 90 MG/DL (<150)
[2022-06-18 16:45] LABS: TOTAL 25(OH) VITAMIN D 73.6 NG/ML (30.0-100.0)
[2022-06-18 22:01] LABS: HEMOGLOBIN A1c 6.2 %
== END ==
LOC: M PLALAB 12:42
PROVIDERS: ATTEND Nurse Practitioner Family
DX: E55.9 Vitamin D deficiency, unspecified (principal); N40.1 Benign prostatic hyperplasia with lower urinary tract symptoms; I50.9 Heart failure, unspecified; I11.0 Hypertensive heart disease with heart failure; E78.5 Hyperlipidemia, unspecified; R73.09 Other abnormal glucose; E03.9 Hypothyroidism, unspecified; Z79.899 Other long term (current) drug therapy

== ENCOUNTER → 2023-02-02 | Outpatient (CLI) | payer MEDICARE, OTHER ==
[~2023-02-02] MED LIST changes: +LEVO1TAB39 PO; -OXYC-403 PO; +OXYC-673 PO; +PARO10TA3 PO; +PROA1AER2 INH
== END ==
LOC: M RAD 12:24
PROVIDERS: ATTEND Internal Medicine Pulmonary Disease
DX: R91.8 Other nonspecific abnormal finding of lung field (principal); I51.7 Cardiomegaly; J43.1 Panlobular emphysema

== ENCOUNTER 2023-02-04 22:18 | Inpatient (IN) | payer MEDICARE, OTHER ==
[~2023-02-04] VITALS: Ht 182.9 cm; Wt 93.9 kg
[~2023-02-04 22:18] MED LIST changes: -LEVO1TAB39 PO; -PARO10TA3 PO; -PROA1AER2 INH
[2023-02-04] MEDS ORDERED: IPRATROPIUM 0.5MG/ALBUTEROL 2.5MG INH SOL UD 3ML (DUONEB) As Ordered ONE (22:30)
[2023-02-04] MEDS ORDERED: IPRATROPIUM 0.5MG/ALBUTEROL 2.5MG INH SOL UD 3ML (DUONEB) NEB ONE ×2 (22:35)
[2023-02-04] MEDS ORDERED: ALBUTEROL SULFATE 2.5MG/0.5ML INH NEB SOLN NEB ONE (22:35)
[2023-02-04 22:54] LABS: HEMATOCRIT 30.9 % (42.0-52.0); HEMOGLOBIN 9.8 g/dl (13.5-17.5); MEAN CORPUSCULAR HEMOGLOBIN 32.3 pg (27.0-33.0); MEAN CORPUSCULAR HGB CONC 31.7 g/dl (32.0-36.5); RED BLOOD COUNT 3.03 10^6/uL (4.30-6.10); WHITE BLOOD COUNT 15.4 10^3/uL (4.0-10.0)
[2023-02-04 23:03] LABS: INR 1.38; PROTHROMBIN TIME 17.2 SECONDS (12.5-14.5)
[2023-02-04 23:11] LABS: PLATELET COUNT, AUTOMATED 42 10^3/uL (150-450)
[2023-02-05] VITALS (14 sets, daily range): BP systolic 108–171; BP diastolic 60–88
[2023-02-05 00:06] LABS: CK-MB VALUE MASS < 1.0 NG/ML (<3.6)
[2023-02-05 00:09] LABS: CPK CREATINE PHOSPHOKINASE 38 U/L (46-171); MB/CK RELATIVE INDEX 2.63 (< OR =4)
[2023-02-05 00:37] LABS: EOSINOPHILS 1 % (0-3); LYMPHOCYTES 17 % (16-44); METAMYELOCYTES 2 % (0-0); MONOCYTES 2 % (0-5); MYELOCYTES 13 % (0-0); NEUTROPHILS 5 % (28-66); PROMYELOCYTES 3 % (0-0)
[2023-02-05 00:39] LABS: ATYPICAL LYMPH 7 % (0-5); BLAST CELLS 47 % (0-0); PLASMA CELL 1 % (0-0)
[2023-02-05 00:40] LABS: ANISOCYTOSIS 2+; HYPOCHROMASIA 1+; PLATELET ESTIMATE DECREASED (NORMAL)
[2023-02-05 00:41] LABS: OVALOCYTES 1+
[2023-02-05] MEDS ORDERED: AZITHROMYCIN INJ 500 MG, VIAL MATE ADAPTER 1 EACH in NS 250 ML IV ONE (01:00)
[2023-02-05] MEDS ORDERED: cefTRIAXone SOD 1 GM in D5W MINI-BAG PLUS 50 ML IV ONE (01:00)
[2023-02-05] MEDS ORDERED: NS 1,000 ML IV ONE (01:00)
[2023-02-05] MEDS ORDERED: methylPREDNISolone 125MG 2ML VIAL IV ONE (01:05)
[2023-02-05] MEDS ORDERED: UNRESOLVED CLARIFICATION ENTRY XX STA (01:11)
[2023-02-05 01:40] LABS: ALBUMIN 1.9 G/DL (3.2-5.2); ALKALINE PHOSPHATASE 93 U/L (46-116); ALT/SGPT < 9 U/L (7.0-40); AST/SGOT 16 U/L (<34); BILIRUBIN,DIRECT 0.4 MG/DL (<0.4); BILIRUBIN,TOTAL 0.6 MG/DL (0.3-1.2); BLOOD UREA NITROGEN 17 MG/DL (9-23); CALCIUM LEVEL 7.9 MG/DL (8.3-10.6); CARBON DIOXIDE LEVEL 30 MMOL/L (20-31); CHLORIDE LEVEL 102 MMOL/L (98-107); CK-MB VALUE MASS < 1.0 NG/ML (<3.6); CPK CREATINE PHOSPHOKINASE 38 U/L (46-171); CREATININE FOR GFR 1.03 MG/DL (0.70-1.30); GLOMERULAR FILTRATION RATE > 60.0 (>35); GLUCOSE, FASTING 134 MG/DL (74-106); MB/CK RELATIVE INDEX 2.63 (< OR =4); POTASSIUM SERUM 4.2 MMOL/L (3.5-5.1); SODIUM LEVEL 140 MMOL/L (136-145); THYROID STIMULATING HORMONE 2.947 uIU/ML (0.55-4.78); THYROXINE (T4) 9.3 UG/DL (4.5-10.9); TOTAL PROTEIN 5.9 G/DL (5.7-8.2)
[2023-02-05] MEDS ORDERED: KETOROLAC 30 MG/ML 1ML VIAL IV ONE (02:00)
[2023-02-05] MEDS ORDERED: ALBUTEROL SULFATE 2.5MG/0.5ML INH NEB SOLN NEB ONE (04:20)
[2023-02-05] MEDS ORDERED: DEXTROSE 50% 50ML SYRINGE IV PRN (05:05)
[2023-02-05] MEDS ORDERED: NS 1,000 ML IV SCH (05:05)
[2023-02-05] MEDS ORDERED: PIPERACILLIN/TAZOBACTAM SOD 3.375 GM in D5W MINI-BAG PLUS 50 ML IV SCH (05:05)
[2023-02-05] MEDS ORDERED: VANCOMYCIN HCL 1,250 MG in IV FLUID PLACE HOLDER 1 EA IV SCH (05:05)
[2023-02-05] MEDS ORDERED: GLUCAGON INJ 1MG VIAL SC PRN (05:05)
[2023-02-05] MEDS ORDERED: GLUCOSE 4GM CHEW TABLET PO PRN (05:05)
[2023-02-05] MEDS ORDERED: CEPH500C PO (05:14)
[2023-02-05] MEDS ORDERED: TRAM50TA2 PO (05:14)
[2023-02-05] MEDS ORDERED: LEVO1TAB39 PO (05:14)
[2023-02-05] MEDS ORDERED: PROA1AER2 INH (05:14)
[2023-02-05] MEDS ORDERED: PARO10TA3 PO (05:14)
[2023-02-05] MEDS ORDERED: DILT120C89 PO (05:14)
[2023-02-05] MEDS ORDERED: ALBU2.5V10 INH (05:14)
[2023-02-05] MEDS ORDERED: HOME MED LIST COMPLETE! XX SCH (05:20)
[2023-02-05] MEDS ORDERED: LIDOCAINE 5% (LIDODERM) PATCH TD ONE (06:00)
[2023-02-05 06:05] LABS: ABG BASE EXCESS 2.8 (-2.0-2.0); ABG HCO3 27.2 MEQ/L (22.0-26.0); ABG O2 SATURATION 97.5 % (95.0-99.0); ABG PARTIAL PRESSURE CO2 41.4 mmHg (35.0-45.0); ABG TOTAL CO2 28.5 MEQ/L (23.0-31.0); ABG pH (ARTERIAL) 7.436 UNITS (7.350-7.450)
[2023-02-05 06:06] LABS: HEMATOCRIT 30.4 % (42.0-52.0); HEMOGLOBIN 9.3 g/dl (13.5-17.5); MEAN CORPUSCULAR HEMOGLOBIN 31.2 pg (27.0-33.0); MEAN CORPUSCULAR HGB CONC 30.6 g/dl (32.0-36.5); RED BLOOD COUNT 2.98 10^6/uL (4.30-6.10); WHITE BLOOD COUNT 9.7 10^3/uL (4.0-10.0)
[2023-02-05 06:11] LABS: PLATELET COUNT, AUTOMATED 37 10^3/uL (150-450)
[2023-02-05] MEDS ORDERED: ACETAMINOPHEN 1000MG 100ML IV BAG IV PRN (07:00)
[2023-02-05] MEDS: PIPERACILLIN/TAZOBACTAM SOD 3.375 GM in D5W MINI-BAG PLUS 50 ML IV SCH ×4 (07:27→23:26)
[2023-02-05] MEDS: PANTOPRAZOLE 40MG VIAL IV SCH (07:28)
[2023-02-05] MEDS: INSULIN LISPRO (NovoLOG) PER UNIT SC SCH ×4 (07:28→23:23)
[2023-02-05] MEDS: IPRATROPIUM 0.5MG/ALBUTEROL 2.5MG INH SOL UD 3ML (DUONEB) NEB SCH ×4 (07:45→19:30)
[2023-02-05] MEDS ORDERED: VANCOMYCIN HCL 1,000 MG, VIAL MATE ADAPTER 1 EACH in D5W 250 ML IV SCH (08:00)
[2023-02-05] MEDS: NYSTATIN 100,000 UNITS/GM TOPICAL PWD 15GM TOP SCH ×2 (09:00→20:39)
[2023-02-05] MEDS ORDERED: VANCOMYCIN HCL 1,000 MG, VIAL MATE ADAPTER 1 EACH in D5W 250 ML IV ONE (09:00)
[2023-02-05] MEDS: methylPREDNISolone 40MG 1ML VIAL IV SCH ×2 (10:06→17:34)
[2023-02-05] MEDS ORDERED: fentaNYL 100 MCG/2 ML INJECTION IV ONE (11:05)
[2023-02-05] MEDS ORDERED: MORPHINE 2 MG/ML 1ML VIAL As Ordered ONE (11:06)
[2023-02-05] MEDS ORDERED: fentaNYL 100 MCG/2 ML INJECTION As Ordered ONE (11:10)
[2023-02-05] MEDS ORDERED: ISOVUE-370 76% 100ML VIAL As Ordered ONE (13:15)
[2023-02-05] MEDS: HYDROMORPHONE HCL 0.5 MG/ 0.5 ML SYRINGE IV PRN ×2 (20:40→23:31)
[2023-02-05] MEDS ORDERED: AZITHROMYCIN 250MG TABLET PO SCH (21:00)
[2023-02-05] MEDS ORDERED: VANCOMYCIN HCL 750 MG, VIAL MATE ADAPTER 1 EACH in D5W 250 ML IV SCH (21:00)
[2023-02-06] VITALS (19 sets, daily range): BP systolic 135–190; BP diastolic 70–108
[2023-02-06] MEDS: methylPREDNISolone 40MG 1ML VIAL IV SCH ×3 (01:29→16:24)
[2023-02-06 01:36] LABS: ABG BASE EXCESS 0.9 (-2.0-2.0); ABG HCO3 25.8 MEQ/L (22.0-26.0); ABG PARTIAL PRESSURE CO2 42.3 mmHg (35.0-45.0); ABG PARTIAL PRESSURE O2 114.4 mmHg (75.0-100.0); ABG STANDARD HCO3 25.3 MEQ/L (22.0-26.0); ABG TOTAL CO2 27.1 MEQ/L (23.0-31.0); ABG pH (ARTERIAL) 7.403 UNITS (7.350-7.450)
[2023-02-06] MEDS: IPRATROPIUM 0.5MG/ALBUTEROL 2.5MG INH SOL UD 3ML (DUONEB) NEB SCH ×4 (01:52→19:40)
[2023-02-06] MEDS: HYDROMORPHONE HCL 0.5 MG/ 0.5 ML SYRINGE IV PRN ×3 (02:58→21:18)
[2023-02-06 04:58] LABS: BASO % 0.8 % (0.0-1.0); HEMATOCRIT 30.4 % (42.0-52.0); HEMOGLOBIN 9.3 g/dl (13.5-17.5); LYMPH # 0.7 10^3/uL (1.5-5.0); MEAN CORPUSCULAR HEMOGLOBIN 31.1 pg (27.0-33.0); MEAN CORPUSCULAR HGB CONC 30.6 g/dl (32.0-36.5); MEAN CORPUSCULAR VOLUME 101.7 fl (80.0-96.0); MONO # 0.8 10^3/uL (0.0-0.8); MONO % 20.1 % (2.0-8.0); NEUTROPHILS # 1.2 10^3/uL (1.5-8.5); NEUTROPHILS % 30.3 % (36.0-66.0); RED BLOOD COUNT 2.99 10^6/uL (4.30-6.10)
[2023-02-06 05:05] LABS: PLATELET COUNT, AUTOMATED 22 10^3/uL (150-450)
[2023-02-06 05:27] LABS: ALBUMIN 1.9 G/DL (3.2-5.2); ALKALINE PHOSPHATASE 78 U/L (46-116); ALT/SGPT < 9 U/L (7.0-40); AST/SGOT 20 U/L (<34); BILIRUBIN,TOTAL 0.5 MG/DL (0.3-1.2); BLOOD UREA NITROGEN 31 MG/DL (9-23); CALCIUM LEVEL 7.7 MG/DL (8.3-10.6); CARBON DIOXIDE LEVEL 29 MMOL/L (20-31); CHLORIDE LEVEL 103 MMOL/L (98-107); GLOMERULAR FILTRATION RATE > 60.0 (>35); GLUCOSE, FASTING 164 MG/DL (74-106); MAGNESIUM LEVEL 1.7 MG/DL (1.8-2.4); POTASSIUM SERUM 4.2 MMOL/L (3.5-5.1); SODIUM LEVEL 140 MMOL/L (136-145); TOTAL PROTEIN 5.7 G/DL (5.7-8.2)
[2023-02-06] MEDS: INSULIN LISPRO (NovoLOG) PER UNIT SC SCH ×2 (05:32→12:00)
[2023-02-06] MEDS: PIPERACILLIN/TAZOBACTAM SOD 3.375 GM in D5W MINI-BAG PLUS 50 ML IV SCH ×2 (05:47→11:46)
[2023-02-06] MEDS ORDERED: VANCOMYCIN HCL 750 MG, VIAL MATE ADAPTER 1 EACH in D5W 250 ML IV SCH (09:00)
[2023-02-06] MEDS ORDERED: MAGNESIUM OXIDE 400MG TAB (MAG-OX) PO ONE (09:10)
[2023-02-06] MEDS ORDERED: NS 1,000 ML IV SCH (09:10)
[2023-02-06] MEDS: PANTOPRAZOLE 40MG VIAL IV SCH (09:32)
[2023-02-06] MEDS: NYSTATIN 100,000 UNITS/GM TOPICAL PWD 15GM TOP SCH (09:32)
[2023-02-06] MEDS ORDERED: VANCOMYCIN HCL 500 MG in D5W MINI-BAG PLUS 100 ML IV SCH (10:00)
[2023-02-06] MEDS ORDERED: KETOROLAC 30 MG/ML 1ML VIAL IV ONE (11:25)
[2023-02-06] MEDS ORDERED: fentaNYL 100 MCG/2 ML INJECTION IV ONE (18:20)
[2023-02-06] MEDS ORDERED: SCOPOLAMINE 1MG TRANSDERMAL PATCH TOP PRN (18:25)
[2023-02-06] MEDS ORDERED: ONDANSETRON 4MG 2ML VIAL IV PRN (18:25)
[2023-02-06] MEDS ORDERED: ACETAMINOPHEN TAB 650MG DOSE (2X325MG) PO PRN (18:25)
[2023-02-06] MEDS ORDERED: BISACODYL 10MG SUPP PR PRN (18:25)
[2023-02-06] MEDS ORDERED: FLEET ENEMA PR PRN (18:25)
[2023-02-06] MEDS: LORazepam 2 MG/ML 1ML VIAL IV PRN ×3 (19:00→22:08)
[2023-02-07] MEDS: IPRATROPIUM 0.5MG/ALBUTEROL 2.5MG INH SOL UD 3ML (DUONEB) NEB SCH ×4 (01:20→21:18)
[2023-02-07] MEDS: HYDROMORPHONE HCL 0.5 MG/ 0.5 ML SYRINGE IV PRN ×9 (02:33→22:58)
[2023-02-07] MEDS: LORazepam 2 MG/ML 1ML VIAL IV PRN ×8 (04:13→22:59)
[2023-02-08] MEDS: HYDROMORPHONE HCL 0.5 MG/ 0.5 ML SYRINGE IV PRN ×7 (01:02→14:14)
[2023-02-08] MEDS: LORazepam 2 MG/ML 1ML VIAL IV PRN ×7 (01:02→14:14)
[2023-02-08 01:12] VITALS: BP 149/106
[2023-02-08] MEDS: IPRATROPIUM 0.5MG/ALBUTEROL 2.5MG INH SOL UD 3ML (DUONEB) NEB SCH ×3 (02:00→13:31)
[2023-02-08] MEDS ORDERED: ONDANSETRON 4MG ORAL DISINTEGRATING TAB PO PRN (15:00)
[2023-02-08] MEDS ORDERED: LORazepam 1 MG TAB PO PRN (15:00)
[2023-02-08] MEDS ORDERED: MORPHINE 10MG/0.5ML ORAL CONCENTRATE SOLUTION U/D SL PRN (15:05)
[2023-02-09 19:08] LABS: BODY FLUID CULTURE Not indicated. (.); LEGIONELLA ANTIGEN URINE Negative (Negative); ORGANISM ID Not indicated. (.); SPECIMEN SOURCE Urine (.); URINE STREP PNEUMONIAE ANTIGEN Negative (Negative)
== END 2023-02-08 17:00 | disposition expired | DRG 871 ==
LOC: EDBD 22:18 → M ED 22:18 → M ED INP 02-05 04:54 → ENRESERV 02-05 08:38 → M ICU 02-05 09:10 → M MS5PR 02-08 02:55
PROVIDERS: ADMIT Internal Medicine; ATTEND Internal Medicine
DX: A41.9 Sepsis, unspecified organism (principal); J18.9 Pneumonia, unspecified organism; J96.21 Acute and chronic respiratory failure with hypoxia; G93.41 Metabolic encephalopathy; J44.1 Chronic obstructive pulmonary disease with (acute) exacerbation; J44.0 Chronic obstructive pulmonary disease with (acute) lower respiratory infection; I48.20 Chronic atrial fibrillation, unspecified; C92.00 Acute myeloblastic leukemia, not having achieved remission; D69.6 Thrombocytopenia, unspecified; E83.42 Hypomagnesemia; E03.9 Hypothyroidism, unspecified; F32.A Depression, unspecified; R91.1 Solitary pulmonary nodule; Z92.21 Personal history of antineoplastic chemotherapy; Z85.118 Personal history of other malignant neoplasm of bronchus and lung; G62.9 Polyneuropathy, unspecified; Z51.5 Encounter for palliative care; Z79.899 Other long term (current) drug therapy; Z88.5 Allergy status to narcotic agent; Z99.81 Dependence on supplemental oxygen; Z66 Do not resuscitate